=== PATIENT | male | born 1995 | race Caucasian/White ===

== ENCOUNTER 2017-07-29 16:54 | Observation (INO) | payer OTHER, SELFPAY ==
[2017-07-29] VITALS (8 sets, daily range): BP systolic 104–136; BP diastolic 48–74; PULSE 50–91; RESP 14–19; TEMP 36.2–36.8; O2SAT 97–99; BMI 26.2
--- NOTE | 2017-07-29 16:57 | EKG12_ITS ---
Test Reason : CP Blood Pressure : / mmHG Vent. Rate : 080 BPM Atrial Rate : 080 BPM P-R Int : 146 ms QRS Dur : 088 ms QT Int : 352 ms P-R-T Axes : 065 -31 044 degrees QTc Int : 405 ms Normal sinus rhythm with sinus arrhythmia Left axis deviation Abnormal ECG Confirmed by HE GRACE ([id number]), city editor ANABELLE LOPEZ ([id number]) on 08/02/2017 10:19:44 AM Referred By: Manuel Engel Confirmed By:HE GRACE
[2017-07-29 17:18] LABS: Absolute Lymphocyte Count 2.07 X10^3/ul (0.83-4.51); Absolute Neutrophil Count 4.8 X10^3/uL (2.0-7.7); Basophil# 0.03 X10^3/uL; Basophil% 0.4 % (0-1); Eosinophil# 0.11 X10^3/uL; Eosinophils% 1.5 % (0-5); Hematocrit 44.3 % (40-54); Hemoglobin 15.2 g/dl (13.0-16.5); Lymphocyte # 2.07 X10^3/ul (4.0); Lymphocyte % 27.6 % (19-41); Mean Corp Hgb Conc 34.3 g/gl (32-36); Mean Corpuscular Hgb 29.2 pg (27.0-32.0); Mean Platelet Vol. 10.6 fl (6.2-12.0); Monocyte# 0.46 X10^3/uL; Monocyte% 6.1 % (0-10); Neutrophil # 4.83 X10^3/uL (2.7-7.7); Neutrophil % 64.4 % (47-70); Platelet Count 272 K/mm3 (150-450); RBC Distribution Width SD 36.9 fl (35.1-43.9); Red Blood Count 5.21 M/mm3 (4.6-6.2); White Blood Count 7.5 K/mm3 (4.4-11.0)
[2017-07-29 17:19] LABS: POSITIVE COUNT NO; POSITIVE DIFFERENTIAL NO; POSITIVE MORPHOLOGY NO
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
[2017-07-29] MEDS: Aspirin 325 MG Tablet PO (17:38)
[2017-07-29 17:51] LABS: Anion Gap 7 (5-15); BUN 20 mg/dL (7-18); BUN/Creat Ratio 17.4 RATIO (10-20); Calcium,Total 9.4 mg/dL (8.5-10.1); Chloride 108 mmol/L (98-107); Creatinine, Serum 1.15 mg/dL (0.70-1.30); EST Glomerular Filtration Rate 85 mL/min (>60); Est Glom Filt Rate - Afr Amer 102 mL/min (>60); Estimated Creatinine Clearance 117.14 ml/min; Glucose 89 mg/dL (74-106); Sodium Level 142 mmol/L (136-145)
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
[2017-07-29 19:01] LABS: Erythrocyte Sedimentation Rate 2 mm/hr (0-15)
[2017-07-29 19:13] LABS: CRP < 2.90 mg/L (0.0-3.0)
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
--- NOTE | 2017-07-29 20:00 | EKG12_ITS ---
Test Reason : Blood Pressure : / mmHG Vent. Rate : 061 BPM Atrial Rate : 061 BPM P-R Int : 162 ms QRS Dur : 094 ms QT Int : 418 ms P-R-T Axes : 065 -23 042 degrees QTc Int : 420 ms Normal sinus rhythm Normal ECG When compared with ECG of 29-JUL-2017 16:56, MANUAL COMPARISON REQUIRED, DATA IS UNCONFIRMED Confirmed by HE GRACE ([id number]), assistant production editor ANABELLE LOPEZ ([id number]) on 08/02/2017 3:07:35 PM Referred By: Manuel Engel Confirmed By:HE GRACE
[2017-07-29] MEDS: Famotidine 20 MG Tablet PO (21:22)
[2017-07-30] VITALS (8 sets, daily range): BP systolic 100–122; BP diastolic 55–68; PULSE 38–66; RESP 14–18; TEMP 36.6–36.8; O2SAT 97–99
[2017-07-30 05:49] LABS: International Normalized Ratio 1.2
--- NOTE | 2017-07-30 05:55 | ECHOD_ITS ---
Reason For Study: chest pain Procedure This was a 2D Doppler, Color Flow transthoracic echocardiogram. The study was technically difficult. Due to pectus excavatum. Exam performed in department. Left Ventricle Normal size and thickness. The estimated ejection fraction is 65 %. Normal diastology for age. No regional wall motion abnormalities noted. Right Ventricle Normal size and thickness. Normal systolic function. Atria Normal left atrium. Normal right atrium. Normal atrial septum. Mitral Valve The mitral valve is structurally normal. No prolapse or stenosis seen. Trivial mitral valve insufficiency. Tricuspid Valve Normal tricuspid valve. Trivial tricuspid valve insufficiency. Right ventricular systolic pressure estimated to be 31 mmHg. Aortic Valve Trisinus/trileaflet aortic valve. Normal aortic valve. Pulmonic Valve Normal pulmonic valve. Great Vessels Normal aortic root. Normal arch. Normal inferior vena cava. Inferior vena cava collapse with sniff. Pericardium/Pleural No pericardial effusion. MMode/2D Measurements & Calculations LVIDd: 4.9 cm IVSd: 0.97 cm Ao root diam: 3.0 cm LVIDs: 3.5 cm LVPWd: 1.0 cm LA dimension: 2.8 cm RVDd: 3.5 cm FS: 28.9 % LAV(MOD-sp4): 51.3 ml LA A4 area: 18.0 cm2 Doppler Measurements & Calculations MV E max willie: 94.1 cm/sec Lat Peak E' Willie: 20.3 cm/sec Med Peak E' Willie: 16.1 cm/sec MV A max willie: 37.8 cm/sec E/E' lat: 4.6 E/E' med: 5.8 MV E/A: 2.5 Ao V2 max: 118.3 cm/sec LV V1 max: 100.0 cm/sec PA V2 max: 90.5 cm/sec Ao max P.6 mmHg LV V1 max P.0 mmHg PI end-d willie: 95.5 cm/sec TR max willie: 256.5 cm/sec TR max P.3 mmHg Interpretation Summary The estimated ejection fraction is 65 %. Normal diastology for age. Trivial mitral valve insufficiency. Trivial tricuspid valve insufficiency. Right ventricular systolic pressure estimated to be 31 mmHg. There is no comparison study available. Ordering Physician: Mary Grant Referring Physician: Manuel Engel Performed By: Marguerite Childs RDCS, RVT
[2017-07-30 06:18] LABS: Anion Gap 8 (5-15); BUN 16 mg/dL (7-18); BUN/Creat Ratio 16.6 RATIO (10-20); Calcium,Total 8.4 mg/dL (8.5-10.1); Chloride 111 mmol/L (98-107); Creatinine, Serum 0.96 mg/dL (0.70-1.30); EST Glomerular Filtration Rate 103 mL/min (>60); Est Glom Filt Rate - Afr Amer 125 mL/min (>60); Estimated Creatinine Clearance 140.33 ml/min; Glucose 88 mg/dL (74-106); Magnesium 2.1 mg/dL (1.6-2.6); Potassium 3.8 mmol/L (3.5-5.1); Sodium Level 143 mmol/L (136-145)
[2017-07-30] MEDS: Famotidine 20 MG Tablet PO (10:15)
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
[2017-07-30] MEDS: 0.9% NaCl Peripheral Flush Adult/Peds IV (12:16)
[2017-07-30] MEDS: 0.9% Normal Saline 1,000 ML 999 ML IV (12:16)
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
--- NOTE | 2017-07-30 12:47 | PCM.WORK.EX ---
Work/School Excuse Work/School Excuse for:: Patient Please excuse this person from:: Work From: 07/29/17 through: 08/06/17 Restrictions: Other - No driving for 1 week.
--- NOTE | 2017-07-30 12:50 | DCINST_ITS ---
- Discharge Diagnoses Current Active Problems: Current Active and Chronic Problems Acute chest pain (Acute) Syncope (Acute) You will use the following diet at home:: No restrictions Discharge Activity: May Not Drive - 1 Week, - - No using heavy machinery for 1 week Call your doctor if you observe: Shortness of breath, Dizziness, Fainting spells , Chest pain, Increased palpitations (irregular heartbeat) Additional Instructions: Avoid medications that may lower your blood pressure which include beta blockers, meclizine, steroid based medications. Allergies/Adverse Reactions: Allergies No Known Allergies Allergy (Verified 07/29/17 16:57) Medications to take at Discharge NK [NK] 07/29/17 Orders to be completed after discharge: 30-Day Event Recorder [[facility]] Location: None Selected Primary Care Physician: Manuel Engel DO [Primary Care Provider] - Please follow up with your Primary Care Physician in: 1 Week Please Follow Up With: Paulo Rouse MD When: 4-6 weeks Proposed Discharge Date: 07/30/17
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
== END 2017-07-30 12:49 | disposition home or self-care (01) ==
LOC: ED 19:09 → PCU 19:42
PROVIDERS: Admitting Provider Hospitalist; Emergency Provider Emergency Medicine; Family Provider Family Medicine; PCP Family Medicine; Visit Provider Family Medicine
DX: T75.4XXA Electrocution, initial encounter (principal); W86.1XXA Exposure to industrial wiring, appliances and electrical machinery, initial encounter; Y93.89 Activity, other specified; Y92.89 Other specified places as the place of occurrence of the external cause; Y99.0 Civilian activity done for income or pay; R07.89 Other chest pain; R55 Syncope and collapse; R00.1 Bradycardia, unspecified; F17.200 Nicotine dependence, unspecified, uncomplicated; Q67.6 Pectus excavatum
CPT/HCPCS: 36415; 71045; 71275; 80048; 83735; 84443; 84484; 85025; 85610; 85652; 86140; 93005; 93270; 93306; 96360; 99218; 99283; 99406; J7030; Q9967; A4216; G0378

== ENCOUNTER → 2017-07-30 13:01 | Outpatient (REF) | payer SELFPAY | LOC: CVS 13:01 | PROVIDERS: Family Provider Family Medicine; PCP Family Medicine; Visit Provider Nurse Practitioner Family | DX: R00.1 Bradycardia, unspecified (principal) | CPT/HCPCS: 93270 ==

== ENCOUNTER → 2017-09-08 12:35 | Outpatient (CLI) | payer OTHER, SELFPAY ==
--- NOTE | 2017-09-08 12:37 | STE_ITS ---
Reason For Study: Syncope; Chest Pain Stress Results Protocol: Jared Protocol Maximum Predicted HR: 198 bpm Target HR: 168 bpm% Max imum Predicted HR: 86 % DurationHeart Rate Stage (mm:ss) (bpm) BPCom ment Baseline 52 118/78 No Chest Pain Jared Protocol Stage I 3:00 10 8 124/72No Chest Pain Jared Protocol Stage II 3:00 13 7 142/70No Chest Pain Jared Protocol Stage III 3:00 14 8 138/74No Chest Pain; Mild Dyspnea Jared Protocol Stage IV 3:00 17 1 150/76No Chest Pain; Moderate Dyspnea Recovery 85 110/62 No Chest Pain Stress Duration: 12:00 mm:ss Maximum Stress HR: 171 bpmME TS: 13 Baseline Echocardiogram Findings The estimated ejection fraction is 65 %. Normal size and thickness. Concentric left ventricular hypertrophy. Normal systolic function. Normal left atrium. Normal right atrium. Normal atrial septum. The mitral valve is structurally normal. No prolapse or stenosis seen. Stress Echo Wall motion Data Resting WMIntermediate WMStress WM Resting Wall Motion No regional wall motion abnormalities noted. EKG Data The baseline ECG demonstrates normal sinus rhythm with at rate of _ beats per minute. The patient exercised according to the regular Jared protocol for a total duration of 12:00. The maximum heart rate attained was 173 beats per minute. This was 87% of maximum predicted heart rate. The patient exercised into stage 5 of the Jared protocol. During stress, there were no ST or T wave changes noted to suggest ischemia. Interpretation Summary The estimated ejection fraction is 65 %. Normal, adequate, treadmill echocardiogram. Negative for ischemia by EKG and echocardiographic criteria. No anginal symptoms noted. Appropriate blood pressure response to exercise. Average exercise capacity for age. Rare PACs and PVCs noted during exercise. Final LVEF is 75%. Ordering Physician: Paulo Rouse Referring Physician: Paulo Rouse MD Performed By: Natalie Salomon RDCS
== END ==
PROVIDERS: Family Provider Family Medicine; PCP Family Medicine; Visit Provider Internal Medicine Cardiovascular Disease
DX: R07.9 Chest pain, unspecified (principal); R55 Syncope and collapse; T75.4XXA Electrocution, initial encounter; R42 Dizziness and giddiness
CPT/HCPCS: 93017; 93350

== ENCOUNTER 2017-11-18 09:15 | Emergency (ER) | payer OTHER, SELFPAY ==
[2017-11-18 09:16] VITALS: BP 154/68; PULSE 60; RESP 18; TEMP 36.6; O2SAT 100; BMI 26.4
[2017-11-18 09:27] VITALS: BP 144/80; PULSE 59; RESP 16; O2SAT 100
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
--- NOTE | 2017-11-18 09:41 | EKG12_ITS ---
Test Reason : CP Blood Pressure : / mmHG Vent. Rate : 049 BPM Atrial Rate : 049 BPM P-R Int : 166 ms QRS Dur : 086 ms QT Int : 424 ms P-R-T Axes : 052 -33 015 degrees QTc Int : 383 ms Sinus bradycardia Left axis deviation Cannot rule out Anterior infarct , age undetermined Abnormal ECG Confirmed by ROD DUONG, BEE ([id number]), visual effects editor REENA MUÑIZ ([id number]) on 11/22/2017 3:20:54 PM Referred By: SHAKIR Confirmed By:BEE VELASCO MD
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
[2017-11-18 09:51] LABS: Absolute Lymphocyte Count 1.46 X10^3/ul (0.83-4.51); Absolute Neutrophil Count 4.7 X10^3/uL (2.0-7.7); Basophil# 0.01 X10^3/uL; Basophil% 0.1 % (0-1); Eosinophil# 0.19 X10^3/uL; Eosinophils% 2.8 % (0-5); Hematocrit 44.9 % (40-54); Hemoglobin 15.2 g/dl (13.0-16.5); Lymphocyte # 1.46 X10^3/ul (4.0); Lymphocyte % 21.4 % (19-41); Mean Corp Hgb Conc 33.9 g/gl (32-36); Mean Corpuscular Hgb 29.2 pg (27.0-32.0); Mean Corpuscular Volume 86.2 fL (80-94); Mean Platelet Vol. 10.4 fl (6.2-12.0); Monocyte# 0.49 X10^3/uL; Monocyte% 7.2 % (0-10); Neutrophil # 4.67 X10^3/uL (2.7-7.7); Neutrophil % 68.5 % (47-70); Platelet Count 235 K/mm3 (150-450); RBC Distribution Width CV 11.9 % (11.6-14.6); RBC Distribution Width SD 37.5 fl (35.1-43.9); Red Blood Count 5.21 M/mm3 (4.6-6.2); White Blood Count 6.8 K/mm3 (4.4-11.0)
--- NOTE | 2017-11-18 09:55 | CT_ITS ---
STUDY: CTA CHEST REASON FOR EXAM: Male, 22 years old. Chest pain RADIATION DOSAGE (If Supplied By Facility): CTDIvol = ( 18.16 ) mGy, DLP = ( 629.81 ) mGycm TECHNIQUE: The examination was performed with the intravenous administration of 100 ml of Isovue 370 contrast material. Post-processing of the angiographic images was performed, with multiplanar reformation and 3D reconstruction. Individualized dose optimization techniques were used for this CT. COMPARISON: None. FINDINGS: Normal enhancement of the main pulmonary artery and right and left pulmonary arteries. Normal enhancement of the bilateral peripheral pulmonary arteries. There is no demonstrated pulmonary embolism. Normal thoracic aorta and visualized great vessels. There is no demonstrated aortic dissection. Normal heart and pericardium. Normal mediastinum. Normal hilar regions. Normal visualized trachea and bronchi. The lungs are well expanded. Normal pulmonary parenchyma. Normal pleura. Normal chest wall structures. Pectus excavatum noted Normal osseous structures. Normal visualized upper abdomen. CT/CTA Chest W/WO Contrast IMPRESSION: Normal CTA chest examination, without a demonstrated pulmonary embolism or arterial dissection. Electronically Signed: Shyann Doty MD at 10:55 EDT , Service support ,
[2017-11-18] MEDS: Ondansetron 4 MG/2 ML Vial IV (10:04)
[2017-11-18 10:05] LABS: Anion Gap 7 (5-15); BUN 17 mg/dL (7-18); BUN/Creat Ratio 14.8 RATIO (10-20); Calcium,Total 9.2 mg/dL (8.5-10.1); Chloride 107 mmol/L (98-107); Creatinine, Serum 1.15 mg/dL (0.70-1.30); EST Glomerular Filtration Rate 84 mL/min (>60); Est Glom Filt Rate - Afr Amer 102 mL/min (>60); Estimated Creatinine Clearance 117.14 ml/min; Glucose 106 mg/dL (74-106); Sodium Level 143 mmol/L (136-145)
[2017-11-18] MEDS: morphine 8 MG/ML Syringe IV (10:05)
[2017-11-18] MEDS: Ketorolac 30 MG/ML Syringe IV (10:05)
[2017-11-18] MEDS: Mag Hydrox/Al Hydrox/Simeth 30 ML UDC PO (10:06)
[2017-11-18 10:08] VITALS: BP 115/71; PULSE 59; RESP 14; O2SAT 99
[2017-11-18 10:18] LABS: CRP < 2.90 mg/L (0.0-3.0); Erythrocyte Sedimentation Rate 2 mm/hr (0-15)
[2017-11-18] MEDS: 0.9% Normal Saline 1,000 ML 150 ML IV (11:03)
[2017-11-18 11:06] VITALS: BP 131/74; PULSE 49; RESP 12; O2SAT 100
--- NOTE | 2017-11-18 11:58 | DCINST.ED_ITS ---
ED Disposition - Plan for ED Patient: Chief Complaint: Chest Pain Instructions: ED Chest Pain Atypical Unkn Cause Prescriptions: Hydrocodone Bitart/Apap 5-325 [[place] 5MG-325MG] 1 tab PO Q4H PRN PRN 2 Days #4 tab PRN Reason: Pain Referrals: Manuel Engel DO [Primary Care Provider] -
[2017-11-18 12:23] VITALS: BP 128/71; PULSE 49; RESP 14; RESP 16; O2SAT 100; O2SAT 98
== END 2017-11-18 12:25 | disposition home or self-care (01) ==
LOC: ED 10:11
PROVIDERS: Emergency Provider Emergency Medicine; Family Provider Family Medicine; PCP Family Medicine
DX: R07.9 Chest pain, unspecified (principal); Z87.828 Personal history of other (healed) physical injury and trauma
CPT/HCPCS: 71046; 71275; 80048; 84484; 85025; 85652; 86140; 93005; 96361; 96374; 96375; 99284; J7030; J7040; Q9967; A4216; J2405

== ENCOUNTER 2017-12-08 07:09 | Day surgery (SDC) | payer OTHER, SELFPAY ==
[2017-12-07 07:52] VITALS: BMI 26.4
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
== END 2017-12-08 14:15 | disposition home or self-care (01) ==
LOC: CLSP 07:10
PROVIDERS: Family Provider Family Medicine; PCP Family Medicine; Referring Provider Internal Medicine Cardiovascular Disease; Visit Provider Internal Medicine Cardiovascular Disease
DX: R07.89 Other chest pain (principal); F12.90 Cannabis use, unspecified, uncomplicated; Z79.811 Long term (current) use of aromatase inhibitors
CPT/HCPCS: 93458; 99152; J7040; C1769; C1894; Q9967

== ENCOUNTER → 2017-12-14 11:17 | Outpatient (CLI) | payer OTHER, SELFPAY ==
--- NOTE | 2017-12-14 11:20 | ADUL_ITS ---
Reason For Study: R groin pain Right Velocities Left Velocities Common Femoral Artery, mid = 115 cm./sec. Common Femoral Artery, mid = 108 cm./sec. DIVERSITY SPECIALIST measures .927 x 1.1 cm. DIVERSITY SPECIALIST measures .851 x .910 cm. CFV is compressible with normal venous flow CFV is compressible with normal venous flow patterns. patterns. No Pseudo or A-V Fistula identified. Procedure The exam was diagnostic. Prelim called to Joan Hopper. Interpretation Summary Common femoral arteries appear bilaterally patent, demonstrating pulsatile color flow bilaterally. Common femoral veins are patent and compressible bilaterally, demonstrating normal, phasic venous flow. There is no evidence of pseudoanuerysm, arterio-venous fistula, or other iatrogenic abnormality on either side. Ordering Physician: Joan Hopper Performed By: Douglas Wilson RVT
== END ==
PROVIDERS: Family Provider Family Medicine; PCP Family Medicine; Referring Provider Physician Assistant Medical; Visit Provider Physician Assistant Medical
DX: Z98.890 Other specified postprocedural states (principal); R10.31 Right lower quadrant pain; G89.18 Other acute postprocedural pain
CPT/HCPCS: 93926

== ENCOUNTER 2018-01-12 18:01 | Emergency (ER) | payer OTHER, SELFPAY ==
[2017-12-27 13:09] VITALS: BMI 26.6
[2018-01-12 18:02] VITALS: BP 126/72; PULSE 67; RESP 15; TEMP 36.8; O2SAT 100; BMI 27.1
--- NOTE | 2018-01-12 18:07 | EKG12_ITS ---
Test Reason : Blood Pressure : / mmHG Vent. Rate : 066 BPM Atrial Rate : 066 BPM P-R Int : 164 ms QRS Dur : 084 ms QT Int : 374 ms P-R-T Axes : 061 -28 026 degrees QTc Int : 392 ms Normal sinus rhythm with sinus arrhythmia Possible Left atrial enlargement Borderline ECG Confirmed by ROD DUONG, BEE ([id number]), graphic editor REENA MUÑIZ ([id number] on 01/14/2018 2:40:17 PM Referred By: MARQUISE Confirmed By:BEE VELASCO MD
[2018-01-12 18:17] VITALS: BP 119/75; BP 120/72; BP 128/85; PULSE 69; PULSE 71; PULSE 87
[2018-01-12] MEDS: 0.9% Normal Saline 1,000 ML 1000 ML IV (18:21)
[2018-01-12 18:35] LABS: Absolute Neutrophil Count 7.8 X10^3/uL (2.0-7.7); Basophil# 0.03 X10^3/uL; Basophil% 0.3 % (0-1); Eosinophil# 0.13 X10^3/uL; Eosinophils% 1.2 % (0-5); Hematocrit 43.3 % (40-54); Hemoglobin 15.1 g/dl (13.0-16.5); Lymphocyte % 21.3 % (19-41); Mean Corp Hgb Conc 34.9 g/gl (32-36); Mean Corpuscular Hgb 29.7 pg (27.0-32.0); Mean Corpuscular Volume 85.1 fL (80-94); Monocyte# 0.58 X10^3/uL; Monocyte% 5.4 % (0-10); Neutrophil # 7.77 X10^3/uL (2.7-7.7); Neutrophil % 71.7 % (47-70); Platelet Count 274 K/mm3 (150-450); RBC Distribution Width CV 11.9 % (11.6-14.6); RBC Distribution Width SD 37.1 fl (35.1-43.9); Red Blood Count 5.09 M/mm3 (4.6-6.2); White Blood Count 10.8 K/mm3 (4.4-11.0)
[2018-01-12 18:49] LABS: Anion Gap 9 (5-15); BUN 19 mg/dL (7-18); BUN/Creat Ratio 17.3 RATIO (10-20); Calcium,Total 9.3 mg/dL (8.5-10.1); Chloride 108 mmol/L (98-107); EST Glomerular Filtration Rate 89 mL/min (>60); Est Glom Filt Rate - Afr Amer 107 mL/min (>60); Estimated Creatinine Clearance 122.47 ml/min; Glucose 106 mg/dL (74-106); Potassium 3.6 mmol/L (3.5-5.1); Sodium Level 141 mmol/L (136-145)
[2018-01-12 18:55] LABS: POSITIVE COUNT NO; POSITIVE DIFFERENTIAL NO; POSITIVE MORPHOLOGY NO
--- NOTE | 2018-01-12 19:07 | ED.RN ---
REPORT GIVEN AND CARE TAKEN OVER BY MAXIME VIZCARRA RN.
[2018-01-12 19:33] VITALS: BP 123/71; PULSE 65; RESP 20; O2SAT 98
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
[2018-01-12 21:05] VITALS: BP 125/82; PULSE 60; RESP 15; TEMP 36.9; O2SAT 99
[2018-01-12 22:07] VITALS: BP 125/82; PULSE 60; RESP 15; TEMP 36.9; O2SAT 98
== END 2018-01-12 22:00 | disposition short-term general hospital (02) ==
LOC: ED 18:41
PROVIDERS: Emergency Provider Emergency Medicine; Family Provider Family Medicine; PCP Family Medicine
DX: R55 Syncope and collapse (principal); I49.8 Other specified cardiac arrhythmias; R07.9 Chest pain, unspecified; T75.4XXD Electrocution, subsequent encounter
CPT/HCPCS: 80048; 84484; 85025; 93005; 96360; 99285; J7030; A4216

== ENCOUNTER → 2018-01-20 13:15 | Outpatient (CLI) | payer OTHER, SELFPAY ==
[2018-01-12 18:02] VITALS: BMI 27.1
--- OUTSIDE RECORDS SUMMARY | 2018-03-08 09:14 | XMS RPT_ITS ---
:1995 Author Organization OHIP Support Name Relationship Address Phone MARGUERITE MORA Unavailable Unavailable + [place] [address] RYNE KWON Unavailable [address] + [place] [address] SPECILITY PROCESSING Unavailable [address] + [place] [address] MARGUERITE MORA Unavailable . + [place] [address] RYNE KWON Unavailable [address] + [place] [address] SPECILITY PROCESSING Unavailable [address] + [place] [address] MARGUERITE MORA Unavailable Unavailable + [place] [address] RYNE KWON Unavailable [address] + [place] [address] SPECILITY PROCESSING Unavailable [address] + [place] [address] MARGUERITE MORA Unavailable Unavailable + [place] [address] RYNE KWON Unavailable [address] + [place] [address] SPECILITY PROCESSING Unavailable [address] + [place] [address] MARGUERITE MORA Unavailable . + [place] [address] RYNE KWON Unavailable [address] + [place] [address] SPECILITY PROCESSING Unavailable [address] + [place] [address] MARGUERITE MORA Unavailable Unavailable + [place] [address] CHER, RYNE Unavailable [address] + [place] [address] SPECILITY PROCESSING Unavailable [address] + [place] [address] MARGUERITE MORA Unavailable . + [place] [address] CHER, RYNE Unavailable [address] + [place] [address] SPECILITY PROCESSING Unavailable [address] + [place] [address] MARGUERITE MORA Unavailable Unavailable + [place] [address] CHER, RYNE Unavailable [address] + [place] [address] SPECILITY PROCESSING Unavailable [address] + [place] [address] MARGUERITE MORA Unavailable Unavailable + [place] [address] CHER RYNE Unavailable [address] + [place] [address] SPECILITY PROCESSING Unavailable [address] + [place] [address] MARGUERITE MORA Unavailable . + [place] [address] RYNE KWON Unavailable [address] + [place] [address] SPECILITY PROCESSING Unavailable [address] + [place] [address] MARGUERITE MORA Unavailable . + [place] [address] CHER RYNE Unavailable [address] + [place] [address] SPECILITY PROCESSING Unavailable [address] + [place] [address] MARGUERITE MORA Unavailable . + [place] [address] CHER, RYNE Unavailable [address] + [place] [address] SPECILITY PROCESSING Unavailable [address] + [place] [address] MARGUERITE MORA Unavailable . + [place] [address] CHER, RYNE Unavailable [address] + [place] [address] SPECILITY PROCESSING Unavailable [address] + [place] [address] MARGUERITE MORA Unavailable . + [place] [address] CHER, RYNE Unavailable [address] + [place] [address] SPECILITY PROCESSING Unavailable [address] + [place] [address] MARGUERITE MORA Unavailable . + [place] [address] CHER, RYNE Unavailable [address] + [place] [address] SPECILITY PROCESSING Unavailable [address] + [place] [address] MARGUERITE MORA Unavailable . + [place] [address] CHER, RYNE Unavailable [address] + [place] [address] SPECILITY PROCESSING Unavailable [address] + [place] [address] MARGUERITE MORA Unavailable . + [place] [address] CHER, RYNE Unavailable [address] + [place] [address] SPECILITY PROCESSING Unavailable [address] + [place] [address] MARGUERITE MORA Unavailable . + [place] [address] CHER, RYNE Unavailable [address] + [place] [address] SPECILITY PROCESSING Unavailable [address] + [place] [address] MARGUERITE MORA Unavailable . + [place] [address] CHER, RYNE Unavailable [address] + [place] [address] SPECILITY PROCESSING Unavailable [address] + [place] [address] MARGUERITE MORA Unavailable . + [place] [address] CHER, RYNE Unavailable [address] + [place] [address] SPECILITY PROCESSING Unavailable [address] + [place] [address] MARGUERITE MORA Unavailable . + [place] [address] CHER, RYNE Unavailable [address] + [place] [address] SPECILITY PROCESSING Unavailable [address] + [place] [address] MARGUERITE MORA Unavailable . + [place] [address] CHER, RYNE Unavailable [address] + [place] [address] SPECILITY PROCESSING Unavailable [address] + [place] [address] MARGUERITE MORA Unavailable . + ., [place] . SPECILITY PROCESSING Unavailable [address] + [place] [address] MARGUERITE MORA Unavailable . + [place] [address] CHER, YRNE Unavailable [address] + [place] [address] SPECILITY PROCESSING Unavailable [address] + [place] [address] MARGUERITE MORA Unavailable . + [place] [address] RYNE KWON Unavailable [address] + [place] [address] SPECILITY PROCESSING Unavailable [address] + [place] [address] CHRISTIANO MORA Unavailable Unavailable + [place] [address] SPECILITY PROCESSING Unavailable [address] + [place] [address] SPECILITY PROCESSING Unavailable [address] + [place] [address] MARGUERITE MORA Unavailable . + [place] [address] RYNE KWON Unavailable [address] + [place] [address] SPECILITY PROCESSING Unavailable [address] + [place] [address] HECTOR MORAA Unavailable . + [place] [address] RYNE KWON Unavailable [address] + [place] [address] SPECILITY PROCESSING Unavailable [address] + [place] [address] LENNY MARGUERITE Unavailable . + [place] [address] RYNE KWON Unavailable [address] + [place] [address] SPECILITY PROCESSING Unavailable [address] + [place] [address] CHERYL MORANDA Unavailable . + [place] [address] RYNE KWON Unavailable [address] + [place] [address] SPECILITY PROCESSING Unavailable [address] + [place] [address] LENNY MARGUERITE Unavailable . + [facility] [place] [address] RYNE KWON Unavailable [address] + [place] [address] SPECILITY PROCESSING Unavailable [address] + [place] [address] HECTOR MORAA Unavailable . + [place] [address] RYNE KWON Unavailable [address] + [place] [address] SPECILITY PROCESSING Unavailable [address] + [place] [address] Care Team Providers Name Role Phone Erika Engel Primary Care Unavailable Erika Engel Referring Unavailable Imamura, Yoichi Admitting Unavailable Paulo Grace Consulting Unavailable Anahi Bagley Attending Unavailable Imamura, Yoichi Admitting Unavailable Erika Engel Referring Unavailable Erika Engel Primary Care Unavailable Juanita, Yoichi Consulting Unavailable Jarret Alejandra Attending Unavailable Imamura, Yoichi Admitting Unavailable Paulo Grace Attending Unavailable Brown, Erika Referring Unavailable Brown, Erika Primary Care Unavailable Paulo Grace Consulting Unavailable White, Anahi Consulting Unavailable Jodi Gamez BURN OUT SCARFING OPERATOR-C Attending Unavailable Brown, Erika Primary Care Unavailable Kain Arora BURN OUT SCARFING OPERATOR-C Attending Unavailable Kain Arora BURN OUT SCARFING OPERATOR-C Referring Unavailable Brown, Erika Primary Care Unavailable Brown, Erika Attending Unavailable Brown, Erika Referring Unavailable Harley, Mooers BURN OUT SCARFING OPERATOR-C Attending Unavailable Harley Jenny BURN OUT SCARFING OPERATOR-C Referring Unavailable Brown, Erika Primary Care Unavailable Mary Grant Admitting Unavailable White, Anahi Attending Unavailable Brown, Erika Referring Unavailable Brown, Erika Primary Care Unavailable Paulo Grace Consulting Unavailable White, Anahi Consulting Unavailable AroraKain BURN OUT SCARFING OPERATOR-C Attending Unavailable Brown, Erika Referring Unavailable Brown, Erika Primary Care Unavailable Olejuan pabloe, Efewongbe Attending Unavailable Brown, Erika Referring Unavailable Brown, Erika Primary Care Unavailable Evelia Shaw Attending Unavailable Paulo Grace Attending Unavailable Brown, Erika Referring Unavailable Brown, Erika Primary Care Unavailable Kain Arora BURN OUT SCARFING OPERATOR-C Attending Unavailable Brown, Erika Referring Unavailable Brown, Erika Primary Care Unavailable Paulo Grace Attending Unavailable Paulo Grace Referring Unavailable Brown, Erika Primary Care Unavailable Paulo Grace Attending Unavailable Paulo Grace Attending Unavailable AroraKain BURN OUT SCARFING OPERATOR-C Attending Unavailable Brown, Erika Referring Unavailable Brown, Erika Primary Care Unavailable Brown, Erika Attending Unavailable Brown, Erika Referring Unavailable Brown, Erika Primary Care Unavailable Paulo Grace Attending Unavailable Oleghe, Efewongbe Attending Unavailable Brown, Erika Referring Unavailable Brown, Erika Primary Care Unavailable Kain Arora BURN OUT SCARFING OPERATOR-C Attending Unavailable Oleghe, Efewongbe Referring Unavailable Kain Arora BURN OUT SCARFING OPERATOR-C Attending Unavailable Oleghe, Efewongbe Referring Unavailable Ej Hanley Attending Unavailable Oleghe, Efewongbe Referring Unavailable Brown, Erika Attending Unavailable Oleghe, Efewongbe Referring Unavailable Brown, Erika Primary Care Unavailable Laverne Celis Attending Unavailable Paulo Grace Attending Unavailable Brown, Erika Referring Unavailable Paulo Grace Attending Unavailable Paulo Grace Referring Unavailable Brown, Erika Primary Care Unavailable Joan Hopper Attending Unavailable Brown, Erika Referring Unavailable Joan Hopper Attending Unavailable Joan Hopper Referring Unavailable Brown, Erika Primary Care Unavailable Paulo Grace Attending Unavailable Kain Arora BURN OUT SCARFING OPERATOR-C Attending Unavailable Brown, Erika Referring Unavailable Brown, Erika Primary Care Unavailable Jose Novak Attending Unavailable THAIS WOODARD Admitting Unavailable FIDEL BAEZA Attending Unavailable MANOJ SPICER Consulting Unavailable TESS GREGG Attending Unavailable PAULO GRACE Referring Unavailable BROWN, ERIKA Primary Care Unavailable PAYAM RODARTE Attending Unavailable PAULO GRACE Referring Unavailable BROWN, ERIKA Primary Care Unavailable THAIS WOODARD Admitting Unavailable BROWN, ERIKA Primary Care Unavailable ESME SPICER Unavailable FIDEL BAEZA Attending Unavailable PROBLEMS PROBLEMS DATE TYPE CONDITION / CODE ATTENDING STATUS SOURCE 01/12/2018 Active Syncope and OFUNGWU, Active [place] collapse / [facility] Other R55(ICD-10) [place] Repository 01/12/2018 Admitting Unknown / OFUNGWU, Active [place] [facility] diagnosis UNK(Unknown) [facility] Repository 12/27/2017 Unknown K92.1 - Melena / Kain Arora Active [place] K92.1(ICD-10) BURN OUT SCARFING OPERATOR-C [facility] Hospital Repository 12/27/2017 Unknown R10.9 - Unspecified AroraKain Active [place] abdominal pain / BURN OUT SCARFING OPERATOR-C Community R10.9(ICD-10) Hospital Repository 12/14/2017 Unknown Z98.890 - Other Hopper, Active [place] specified [facility] postprocedural Hospital states / Repository Z98.890(ICD-10) 12/14/2017 Unknown R10.31 - Right Hopper, Active [place] lower quadrant pain [facility] / R10.31(ICD-10) Hospital Repository 12/14/2017 Unknown G89.18 - Other Hopper, Active [place] acute [facility] postprocedural pain Hospital / G89.18(ICD-10) Repository 12/24/2017 Unknown R07.9 - Chest pain, Paulo Grace Active [place] unspecified / Community R07.9(ICD-10) Hospital Repository 11/18/2017 Unknown R52 - Pain, Jwayyed, Active [place] unspecified / [place] [facility] R52(ICD-10) Hospital Repository 11/10/2017 Unknown T75.4XXD - Erika Engel Active [place] Electrocution, Community subsequent Hospital encounter / Repository T75.4XXD(ICD-10) 10/06/2017 Unknown T75.4XXA - Kain Arora Active [place] Electrocution, BURN OUT SCARFING OPERATOR-C Community initial encounter / Hospital T75.4XXA(ICD-10) Repository 10/06/2017 Unknown R06.00 - Dyspnea, Kain Arora Active [place] unspecified / BURN OUT SCARFING OPERATOR-C Community R06.00(ICD-10) Hospital Repository 10/06/2017 Unknown R42 - Dizziness and Neville, Active [place] giddiness / [place] Community R42(ICD-10) Hospital Repository 10/06/2017 Unknown H61.21 - Impacted Kain Arora Active [place] cerumen, right ear BURN OUT SCARFING OPERATOR-C Community / H61.21(ICD-10) Hospital Repository 10/07/2017 Unknown R55 - Syncope and Paulo Grace Active [place] collapse / Community R55(ICD-10) Hospital Repository 10/06/2017 Unknown R00.1 - Paulo Grace Active [place] Bradycardia, Community unspecified / Hospital R00.1(ICD-10) Repository PROCEDURES PROCEDURES No Procedure Records FoundRESULTS RESULTS ELECTROENCEPHALOGRAM Observed: 02/18/2018 Status: F Source: [place] 12:10 PM [facility] REPOSITORY [facility] Pulmonary Services/Neurology [address] [place] [address] MR#: [id number] Acct: [id number] Name: URIEL KWON Rep #: [id number] : 1995 22 From: Dejan Chand MD Referring Dr: Jenny Souza NP Status: REG CLI Ordering Dr: Date: Location: [facility] Sex: M C - Electroencephalogram This is an 18 channel electro esophagram performed with EKG reference leads photic stimulation and hyperventilation utilizing the International 10-20 electrode placement protocol on this 22-year-old patient with a history of electrocution and frequent syncopal episodes. Background activity is 10 Hz symmetrically in the posterior leads which attenuates with eye opening. Hyperventilation is performed for 5 minutes with good effort with no lateralizing or epileptiform changes. The patient remained awake throughout the recording. EKG was normal sinus rhythm throughout the recording and photic stimulation generates a normal symmetric driving response in the posterior leads. Impression normal awake electroencephalogram 02/18/18 1210 <Electronically signed by Dejan Chand MD> Date Dejan Chand MD CC: GARETH Souza; Erika Engel DO; Dejan Chand MD Date Dictated: 02/18/181202 Date Transcribed: 02/18/181202 [place] Code Enforcement Officer: NF Signed BRAIN WITHOUT Observed: 02/18/2018 Status: F Source: [place] CONTRAST 7:25 AM [facility] REPOSITORY [facility] Imaging Services [address] [place] [address] Brain without Contrast MR#: [id number] Acct: [id number] Name: URIEL KWON Rep #: [id number] : 1995 M 22 From: June Somers PCP: Erika Engel DO Status: REG CLI Study: Brain without Contrast Date of Exam: 02/18/18 Exam# [id number] Ordering Dr: Jenny Souza BURN OUT SCARFING OPERATOR-C STUDY: MRI BRAIN WITHOUT CONTRAST REASON FOR EXAM: Male, 22 years old. DAILY EPISODES OF SYNCOPE SINCE GETTING ELECTROCUTED IN JULY TECHNIQUE: Standardized multiplanar fat and water weighted pulse sequences were obtained. COMPARISON: None. FINDINGS: Normal size of the ventricles and extra-axial spaces for the patient's age. Normal white matter tracts of the supratentorial brain. Normal bilateral basal ganglia. Normal thalami. There is no extra-axial fluid accumulation. Normal flow voids within the major intracranial circulation suggesting patency by spin echo criteria. Normal sella turcica, pituitary gland, infundibular stalk, optic chiasm and hypothalamus. Normal tectal plate and pineal gland. Normal midbrain, azeb and medulla. Normal cerebellum. Normal basal cisterns. Normal bilateral temporal bones. Normal bilateral internal auditory canals. No demonstrated orbital abnormality, within the constraints of a routine brain study. Normal visualized paranasal sinuses. Normal calvarium and skull base. Normal visualized soft tissue structures. Normal visualized upper cervical spine. MRI/Brain without Contrast IMPRESSION: Normal unenhanced MRI of the brain. Electronically Signed: June Somers MD at 10:23 EST Tel , Service support , CC: GARETH Souza; Erika Engel DO [place] Code Enforcement Officer: Signed INTERNAL MEDICINE Observed: 02/04/2018 Status: F Source: [place] OFFICE VISIT 3:13 PM [facility] Internal Medicine [address] [place] [address] OFFICE VISIT Date of Service: 02/04/18 MR#: [id number] Acct: [id number] Name: URIEL KWON Rep #: [id number] : 1995 Provider: Erika Engel DO Age/Sex: 22/M Location[facility] Status: Signed Intake Vital Signs02/04/18 Body Mass Index (BMI) 27.1 02/04/18 Height 6 ft 2 in 02/04/18 Weight: 218 lb 02/04/18 Body Mass Index (BMI) 28.0 02/04/18 Blood Pressure 112/70 Intake Visit Reasons: 4-6 WK FU Chief Complaint: 4-6 Wk FU Is patient in pain?: No Allergies No Known Allergies Allergy (Verified 02/04/18 14:48) Medications ondansetron HCl 4 mg tablet 4 mg PO BID-TID PRN #10 tab 11/03/17 [Rx Confirmed 02/04/18] ibuprofen 800 mg tablet 800 mg PO TID PRN #30 tab 11/05/17 [Rx Confirmed 02/04/18] cyclobenzaprine 10 mg tablet 5 mg PO TID PRN tab 12/02/17 [History Confirmed 02/04/18] gabapentin 100 mg capsule 100 mg PO BID #60 cap 12/27/17 [Rx Confirmed 02/04/18] gabapentin 300 mg capsule 300 mg PO BID 12/27/17 [History Confirmed 02/04/18] PFSH Medical History Accidental electrocution (Chronic) Dizziness (Acute) Acute chest pain (Acute) Syncope (Acute) Back problem (Chronic) Surgical History History of left heart catheterization (Chronic 12/08/17) Family History Grandfather Pancreatic adenocarcinoma Atrial fibrillation, chronic Grandmother Lung cancer Social History Smoking Status: Unknown if ever smoked alcohol intake: never substance use type: marijuana caffeine: Yes Type: carbonated beverages Number of servings: 2, coffee Number of servings: 1 what type of physical activity do you participate in: none HPI HPI Chief Complaint: 4-6 Wk FU Details: URIEL KWON, is a 22 M who presents to the office today for discussion of his last hospitalization. He states that he has had almost daily episodes of syncope he does not lose consciousness they ranged from 30 seconds to 2 minutes in duration. He is never hurt himself when he has had these spells of syncope. ROS Const Constitutional: No chills, fatigue, fever(s), frequent falls, malaise, weakness, sleep problems or change in appetite Eyes Eyes: No blurry vision, change in vision, double vision, discharge or visual disturbances ENT ENT: No abnormal hearing, ear pain, ear pressure, tinnitus or dizziness/vertigo Resp Respiratory: No cough, shortness of breath or wheezing Cardio Cardiology: No chest pain at rest, chest pain with exertion, shortness of breath, dyspnea on exertion, generalized swelling, irregular heart rhythm, lightheadedness, orthopnea, fast heart rate or palpitations Gastro GI: No abdominal pain, change in bowel habits, constipation, diarrhea, nausea/dyspepsia or vomiting Genitourinary Male: No difficulty urinating, burning urination, painful urination, urinary incontinence, urinary frequency, urinary urgency, urinary hesitancy, urinary retention, blood in urine, Frequent nighttime urination/ nocturia, sexual problems, testicle lump or testicle pain Musc Musculoskeletal: No joint pain, back pain, joint swelling, limited range of motion, numbness or tingling Skin Skin: No change in skin color, itching, rash or wounds Breast Breast: No breast lump or breast pain Neuro Neurology: No frequent falls, weakness, abnormal hearing, numbness, tingling, unsteady gait/balance, dizziness, loss of vision, memory loss or visual disturbances Psych Psychiatric: No memory loss, No anxiety, No change in appetite, No depression, No Thoughts of harming yourself/Others Endo Endocrine: No fatigue, heat intolerance, increased thirst/drinking, increased hunger or increased urination Aller/Imm Allergy/Immunologic: No wheezing, itchy eyes or seasonal allergy symptoms Theo/Lymp Hematologic/Lymphatic: No easy bleeding, easy bruising or enlarged lymph nodes Exam Const General: cooperative, comfortable, no acute distress Nutritional Appearance: average body habitus, well nourished Orientation: alert, oriented x3 Limitations: mental status not altered Resp Effort AND Inspection: normal respiratory effort, able to speak in complete sentences, normal respiratory pattern, symmetric chest movement, no audible wheezes, no cough Auscultation: Bilateral: Clear to Auscultation Cardio Palpation: normal PMI Rate: regular rate Heart Sounds: S1 normal, S2 normal, normal S1 and S2, no click, no gallops, no murmurs, no rubs GI Inspection: normal to inspection Auscultation: normal bowel sounds, no hyperactive bowel sounds, no hypoactive bowel sounds Palpation: soft, no hepatosplenomegaly, nontender Rectal Exam: visual inspection normal, normal sphincter tone, No abnormal stool, No fissure, No laceration, No lesions, No tenderness Skin General: no rashes or lesions noted, elasticity normal, turgor normal Lesions: no lesions Rashes: no rashes Neuro General: alert, awake, oriented x3, CN's II-XI intact bilaterally Speech: speech normal Gait: normal gait Motor: muscle tone normal throughout Extrem General: normal to inspection, normal gait, no edema, no pedal edema Psych Appearance: grossly normal Mental Status: mental status grossly normal Affect: normal affect Attitude: cooperative Thought Process: normal Assessment AND Plan Problems 1. Accidental electrocution, subsequent encounter T75.4XXD 2. Syncope, unspecified syncope type R55 Plan This patient has been cleared of any cardiac complications from the electrocution by several nuclear medicine chief technologist, the most recent being an handbag finisher at [facility]. The consensus of opinion is this is neurological perhaps an absence seizure so he is set up to see Dr. Chand the neurologist at [facility]. As per usual physical examination is entirely within normal limits as is a superficial neurologic exam and a psychiatric exam. Coding Level of Care Code Off vis,est,level 3 Diagnoses Accidental electrocution, subsequent encounter T75.4XXD Encounter type: subsequent encounter Syncope, unspecified syncope type R55 Syncope type: unspecified 02/04/18 1513 <Electronically signed by Erika Engel DO> Date Erika Engel DO Cosigner Signature: Date (if applicable) CC: Observed: 01/20/2018 Status: F Source: [place] STOOL OCCULT BLOOD 1:21 PM [facility] REPOSITORY Comments: X 3 SPECIMENS STOB iFOB Occult Blood Negative Performed By: #### M100.7900 #### [facility] [address] [place], [address] PROGRESS Observed: 01/14/2018 Status: COMPLETED Source: [place] 5:36 PM CLIN[facility] OTHER CAMP[facility] REPOSITORY HNO ID: [id number] Author: Manoj Spicer Service: Electrophysiology Author Type: Physician Type: Progress Notes Filed: 01/14/2018 5:45 PM Note Text: Uriel's tilt test was negative, we did not provoke syncope. I discussed that this does not exclude vasovagal but in my mind it raises my concern for pseudosyncope. I would recommend neuropsychologic assessment, which can be done as an outpatient. He sees Dr. Walter for neurology and he may be able to recommend a therapist to do this testing as I am not familiar with. I also am not the right specialist to confirm this diagnosis. I did advise a treatment plan for his symptoms with the possibility that this is VVS and his tilt was negative (he did receive IV fluids in the ED). I advised on dietary water and sodium intake, we discussed, keeping a glass/bottle of water on his night stand and drinking just prior to getting up. I advised use a stretchband for leg extensions first thing in the AM. I recommend that he purchase a pair of athletic compression leggings such as skins or Ux2 to where while at work or periods while standing. I advised to consider taking a yoga class which may help. I provided him a brochure on syncope and encouraged him to look at reputable websites for further information. I discussed with Hemal if he is worried that something was missed from his caridac work up, we could have him wear another event monitor, but I do not think this is necessary as he had a documented episode during his prior monitor. We did discuss ILRs but I advised with the frequency of his recent episodes, I would start with a wearable monitor and only use the ILR if no episodes on the wearable (again as his episodes have occurred 3 times in past week. I answered his, his mom's questions and his significant others. I gave him my contact information. He does not need to make a follow up appointment with me but stressed that he can call to see me if he wants to or symptoms persist. He is okay for discharge home from my perspective.. Manoj Spicer DO 12 LEAD ELECTROCARDIOGRAM Observed: 01/14/2018 Status: F Source: [place] 2:40 PM [facility] REPOSITORY [facility] [facility] [address] [place] [id number] Lead EKG 01/12/18 1820 MR#: [id number] Acct: [id number] Name: URIEL KWON Rep #: [id number] : 1995 22 From: Travon Wills MD Attending Dr: Status: DEP ER Ordering Dr: Jose Novak MD Date: 01/12/18 Location: ED Sex: M C Admitted: Test Reason : Blood Pressure : / mmHG Vent. Rate : 066 BPM Atrial Rate : 066 BPM P-R Int : 164 ms QRS Dur : 084 ms QT Int : 374 ms P-R-T Axes : 061 -28 026 degrees QTc Int : 392 ms Normal sinus rhythm with sinus arrhythmia Possible Left atrial enlargement Borderline ECG Confirmed by TRAVON WILLS MD ([id number]), movie editor REENA MUÑIZ ([id number]) on 01/14/2018 2:40:17 PM Referred By: MARQUISE Confirmed By:TRAVON WILLS MD 01/14/18 1440 Date Travon Wills MD CC: Erika Engel DO; Jose Novak MD Signed CONSULT Observed: 01/14/2018 Status: COMPLETED Source: [facility] 10:17 AM CLINIC OTHER CAMPUS REPOSITORY HNO ID: [id number] Author: Manoj Spicer Service: Electrophysiology Author Type: Physician Type: Consults Filed: 01/14/2018 11:12 AM Note Text: CONSULT: EP SERVICE SERVICE DATE: 01/14/2018 SERVICE TIME: 10:17 AM CONSULTING PHYSICIAN: Manoj Spicer DO PCP: Erika Engel DO ATTENDING: Fidel Baeza REASON FOR CONSULT: recurrent syncope Subjective CHIEF COMPLAINT: Syncope [R55] HISTORY OF PRESENT ILLNESS: Mr. Kwon is a 22 year old male who presents for evaluation of recurrent unexplained syncope. Uriel suggered a low voltage electrocution while at work on July 26. He was holding on the the receptacle box and plugged in a fan, he indicates that the receptacle was not grounded, but that the fan was a three prong plug. He indicates that the cord had a short and when he plugged them in, received a shock and was unable to let go of the plug and a coworker used a broom to break the connection. He deinied LOC, we believe this was AC 120v line, not sure of the current but suspect a 20amp circuit?. He did not go to the hospital noted pain at both hands the first day that resolved. He notes that 3 days later he was exeriency unusual fatigue and dizziness and went to the ED, then while walking to his room he had his first episode of syncope, he reported that he was pale, sweating and that his pulse was in the 30s. He does not recall receiving a formal diagnosis and had not been told that this was a vasovagal episode. He reports that he had a CT and Brain MRI that were reportedly normal (I have not confirmed) He had an ECG and CXR that were also largely normal and he was released. He followed up with Dr. Walter from neurology, as he was having pain and numbness in his arms, he reportedly had a negative EEG and was told his nerves we fried from his electrocution. We discussed that nerve injury is common after electrocutions and in addition to entry site pain, neuropathies can be common, they can occur acutely or be delayed. He also had been having shortness of breath and chest pain, which has since resolved. He was wearing an event monitor while on vacation when he had his next episode on August 25 which he was sitting in the car on way back to [facility] after being on the beach when he suddenly slumped over. The episode on the monitor showed NSR with heart rate of 90 bpm. He had other symptom events all showing sinus rhythm or sinus bradycardia (mild) he had one episode of bradycardia with HR of 38 which was actually an autodetection. Overall, this was largely a negative monitor. He had an echocardiogram 07/30/17 which was largely normal with LVEF 65%, he had a stress echo 09-08-2017 which showed no ischemia, he achieved 13 mets with a peak HR of 171 bpm with is 86% APMHR and a normal HR response to exercise. He later would have a heart cath, though I do not have those results, I had discussed his case with Dr. Grace by phone and it was normal. After the heart cath, Hemal was having pain in his leg and there was concern was neruropathy and was started on gabapentin and those symptoms resolved. Trisha episodes have seemed to increase in frequency with multiple recent events, he had an episode about a week ago shortly after getting up and getting ready for work, a similar episode Wednesday same scenario and then again on , while at work while sitting on a tow motor, he became dizzy, got up and symptoms worsened, he passed out for about 15 seconds after he was pale and dizzy, difficult to move, he was observed and deemed able to resume work, he reports finished his shift but felt very fatigued, about 4 hours later while at home, he was nauseated, felt dry heaves, clammy, he sat down on couch then passed out, though he may have been out 1-2 minutes. His dad notes that the episodes seem most common in the morning shortly after waking. hemal reports a consistenet prodrome feeling lightheaded, nauseated, hot and sweaty prior to episodes. They have logged his vitals after two of the episodes 106/76 49bpm and 107/70 48 bpm respectively. He notices afterwards he is very fatigued, which he describes as feeling like a zombie and this can last up to an entire day afterward. He has been off and on midodrine, he has not seen an improvement with it but he has had episodes of feeling flushed and hot when taking it. He denies any syncope or issues prior to these episodes.. PAST MEDICAL HISTORY Diagnosis Date - Bradycardia - Chest pain - Dizziness - Dyspnea - Near syncope PAST SURGICAL HISTORY Procedure Laterality Date - CARDIAC CATH - ECHO 07/30/2017 - STRESS ECHO 09/08/2017 FAMILY HISTORY Problem Relation Age of Onset - Coronary Artery Disease Paternal Grandmother - other (Afib) Maternal Grandfather Social History Substance Use Topics - Smoking status: Never Smoker - Smokeless tobacco: Never Used - Alcohol use No Prior to Admission Medications Prescriptions Last Dose Informant Patient Reported? Taking? gabapentin (NEURONTIN) 300 mg capsule 01/11/2018 at 2100 Yes Yes Sig: Take 300 mg by mouth twice daily at 6AM and 9PM. Facility-Administered Medications: None Current hospital medications: gabapentin 300 mg cap(s) (NEURONTIN) 300 mg ORAL BID (0600/2100) enoxaparin 40 mg injection (LOVENOX) 40 mg SUBCUTANEOUS DAILY NaCl 0.9% 3-5 mL 3-5 mL INTRAVENOUS q 12 H ondansetron 4 mg tab(s) (ZOFRAN) 4 mg ORAL q 6 H PRN ondansetron (PF) 4 mg injection (ZOFRAN) 4 mg INTRAVENOUS q 6 H PRN docusate sodium 100 mg cap(s) (COLACE) 100 mg ORAL BID PRN bisacodyl 10 mg suppository (DULCOLAX) 10 mg RECTAL DAILY PRN ALLERGIES No Known Allergies CARDIAC STATUS: Chest Pain: has had in past but since resolved Dyspnea: noted in past but since resolved Ankle Edema: Negative Arrhythmia: episodes of bradycardia, has noted HR fluctuations Functional Capacity: good, 13 mets on stress REVIEW OF SYSTEMS: The following systems were reviewed with the patient, and are unremarkable other than as described below. SYSTEMIC: No fever, chills, or change in weight or appetite GENERAL: does report fatigue and increased sweatiness HEENT: No recent change in vision or hearing. CARDIOVASCULAR: No murmur, gallop. Denies chest pain or palpitations. GI: No recent nausea, vomiting or diarrhea. : No recent hematuria or dysuria. SKIN: No recent itching or eruption. PSYCH: No recent active anxiety or depression. HEMATOLOGY/ONCOLOGY: No recent diagnosis of bleeding or cancer. ENDOCRINE: No recent polyuria or heat intolerance. NEURO: No recent TIA, stroke or seizures. RHEUMATOLOGY: No recent active connective tissue disease. Objective PHYSICAL EXAM: Pleasant, comfortable, not in acute distress. Awake, alert, oriented times 3. Moves all extremities. SKIN: No rash or lumps. HEENT: Normocephalic, face symmetrical. NECK: Supple, no JVD, no carotid bruit, no thyromegaly. LUNGS: Clear to auscultation bilaterally. CARDIAC: PMI present, RRR, S1 and S2, no S3 or S4, no additional heart sounds or murmurs. ABDOMEN: Soft, nontender, bowel sounds present. EXTREMITIES: No edema. PULSES: Peripheral pulses present. Body mass index is 25.21 kg/m?. O2 Therapy: Room Air No Data Recorded Patient Vitals for the past 48 hrs: BP Temp Temp src Pulse Resp SpO2 Height Weight 01/14/18 0500 118/60 37 ?C (98.6 ?F) Oral 70 18 98 % - - 01/13/18 1348 125/68 36.9 ?C (98.4 ?F) Oral 68 18 98 % - - 01/13/18 0700 105/60 36.9 ?C (98.4 ?F) Oral 60 18 98 % - - 01/12/18 2302 124/70 36.7 ?C (98.1 ?F) Oral (!) 59 18 98 % - - 01/12/18 2300 - - - - - - 190 cm (6' 2.8) 91 kg (200 lb 9.9 oz) DATA: Diagnostic tests reviewed for today's visit: Most recent labs Most recent imaging Most recent EKG Past 72 Hour Labs: Recent Labs 01/13/18 0205 01/13/18 0000 WBC -- 7.66 RBC -- 4.63 HB -- 13.5* HCT -- 40.0* MCV -- 86.4 MCH -- 29.2 MCHC -- 33.8 PLT -- 238 MPV -- 10.7 GLUC 102* -- BUN 16 -- CREAT 0.90 -- NA 142 -- K 3.7 -- CHLOR 110* -- CO2 24 -- CA 8.3* -- MG 2.4 -- Last Lab Drawn: No results found for this basename: TSH,PROBNP,TG,HDL,LDL,CHOL Prior Cardiac Workup: see PMHX Impression/Recommendations Active Problems: Recurrent syncope POA: Unknown Assessment AND Plan: I discussed with Hemal and his dad that his episodes of syncope started shortly after his electrocution episode and seem likely. Although, this is a low voltage electrocution, that does not imply less risk as low voltage electocutions have higher incidence of , though this is largely acute related to arrhythmia or respiratory failure and this occurs within minutes to hours with expectation of resolution of these issues within a few days. Delayed or salvage determiner rhythm and or conduction disturbances after an electrocution episode are not expected. Given his NSR during his recorded episode on his event monitor and his normal chronitropic response during his stress test, we can largely rule out arrhythmia or sinus node dysfunction as the cause of his syncope. His episodes of bradycardia and HR fluctuations are largely related to his autonomic tone/vagal response, and bear in mind he is only 22 years old, and this is not at all unusual at this stage of life and likely not reflective of injury to his heart or conduction system and there is no evidence that a pacemaker would benefit in any way. I discussed with Hemal and his dad that nerve injuries are rather common after electrocution and often manifest as a peripheral neuropathy, less well described is an autonomic neuropathy which I suspect is more likely at work here, he denies (with the exception of increased sweating) more widespread issues of autonomic dysfunction and based on his symptoms is suspicious for a cardiovagal issue. He has typical prodromal symptoms, his events are more frequent in the am after being supine and in a state of relative hypovolemia, his episodes are breif and no injuries, these are most typical for vasovagal episdoes and we will check a tilt test today. I explained the procedure to them and stressed, that we are going to do a passive tilt as I would be concerned that a NTG induced response in my opinion does not clarify the issue. If he has a typical VVS response during passive tilt, then I think the diagnosis is quite clear, however, if an atypical response (neuropathic [place]), then He would need additional testing such as a formal autonomic study at main campus. A normal tilt test does not exclude VVS and would not assist our work up at all. I discussed with Hemal and his dad that there are two additional possible etiologies, neither of which I will likely be of help diagnosing or treating, but given his negative cardiac assessment, if his tilt is negative, my level of suspicion would greatly elevate. The third possibility is psychogenic psuedosyncope, which is not a fake syncope, the unresponsive episodes are real, they are just not driven by disruptions of cerebral perfusion and not related to HR and BP. This is a form of a conversion disorder. We discussed that neuropsychiatric issues are common after electrocution, and will most often present as behavioral disturbance such as irritability, anger or unprovoked mood swings, similarly dizzines, neuropraxic pain and memory issues can manifest as well. If his tilt is negative then would advise a formal neuropsychiatric assessment (which is beyond my abilities) The final consideration is malingering, which is most often related to secondary gain, such as getting disability or filing Lawsuits with intent of financial gain, this is something that I would not be able to discern. I had reviewed these possibilities with Dr. Grace, when we discussed Keerthi symptoms and Dr. Grace's opinion was that this seemed unlikely and having met him and reviewed his symptoms, I agree. My suspicion is that he had some injury to his autonomic nervous system or disruption of his autonomic homeostasis likely as a result from his electrocution and this is manifesting with repeated vasovagal episodes, there has been a report of POTS following an electrocution, so I believe this is plausible. We will see what the tilt test shows, I don't think a normal tilt test excludes this possibility, but given his increase in frequency with three episodes within the last week, if the tilt is normal then I think pseudo syncope should be further explored. I did answer their questions, we breifly discussed treatment for VVS, such as self awareness recognizing the prodrome symptoms, postural response and physical counter manuevers, if his tilt is positive, will provide a more formal treatment plan. I emphasized that care is largely supportive, there would not be a quick cure and medications likely have a modest role with this diagnosis. We discussed would be difficult to predict recovery, many neurologic symptoms that occur early after an electrocution will resolve, though can take up to a year. Those symptoms that are delayed in onset tend to have a more prolonged response. I did answer Hemal and his dads questions, I stressed that I am a heart rhythm specialist, not a neurologist nor an autonomic expert and the information I shared on these issues were an honest attempt to provide information and care that is relevant and with the understanding that is not my primary area of expertise. Orders reviewed and I agree with the cardiac orders. SIGNATURE: Manoj Spicer DO PATIENT NAME: Uriel Kwon DATE: January 14, 2018 TIME: 10:17 AM PAGER/CONTACT #: [phone] PROGRESS Observed: 01/14/2018 Status: COMPLETED Source: [facility] 8:04 AM [facility] OTHER CAMPUS REPOSITORY O ID: [id number] Author: Fidel Baeza Service: Hospital Medicine Author Type: Physician Type: Progress Notes Filed: 01/14/2018 8:08 AM Note Text: DEPARTMENT OF HOSPITAL MEDICINE PROGRESS NOTE SERVICE DATE: 01/14/2018 SERVICE TIME: 8:04 AM Hospital Medicine/Primary Attending: Fidel Baeza MD NIGHT AND WEEKEND COVERAGE: Please page [phone] from 7 PM to 7 AM Subjective INTERVAL HPI: Reports good night rest. Denied fever and chills No chest pain. No nausea or vomiting Aware of planned Tilt table test today. MEDICATIONS: Reviewed Objective PHYSICAL EXAM: BP 118/60 Pulse 70 Temp (Src) 98.6 (Oral) Resp 18 Ht 6' 2.803 (1.90m) Wt 200 lb 9.9 oz (91.0kg) SpO2 98% BMI 25.21 kg/(m2). Physical Exam Performed GENERAL: Alert, no distress, cooperative SKIN: Skin color, texture, turgor normal. No rashes or lesions. HEAD/SINUSES: No significant findings EYES: PERRLA, EOMI EARS: External ears normal, canals clear NOSE: Nares normal. Septum midline. OROPHARYNX: Lips, mucosa, and tongue normal. Teeth and gums normal. Oropharynx normal. NECK: No jugulovenous distention, No carotid bruits, Carotid pulse normal contour, Supple LUNGS: Lungs clear to auscultation, Good diaphragmatic excursion CARDIAC: Normal S1 and S2; no rubs, murmurs, or gallops ABDOMEN: Abdomen soft, non-tender, BS normal, No masses or organomegaly EXTREMITIES: Extremities normal, no deformities, edema, clubbing or skin discoloration. Good capillary refill., No ulcers NEURO: No focal neuro deficit PULSES: 2+ radial, 2+ carotid Lines, Drains, and Airways Line Peripheral Admission to Hospital Short Left Antecubital 20 Gauge -- days DATA: Diagnostic tests reviewed for today's visit: Assessment/Plan 1. Recurrent syncope: Continue tele Awaiting EP input Continue to monitor. Going for tilt table test. For the last 24 hours his heart rate has maintained above 60s. Medication and Non-Pharmacologic VTE Prophylaxis/Anticoagulants Anticoagulant AND Antiplatelet Medications Start Dose Route Frequency Ordered Stop 01/13/18 0900 enoxaparin 40 mg injection (LOVENOX) (Medical At Risk ) 40 mg SUBCUTANEOUS DAILY 01/12/18 2352 -- 01/13/18 0000 pneumatic compression stockings ([place]) 01/13/18 0000 activity - mobilize patient ([place]) VTE Prophylaxis: VTE prophylaxis appropriate Disposition: Home Plan of care discussed with: Patient SIGNATURE: Fidel Baeza MD PATIENT NAME: Uriel Kwon DATE: January 14, 2018 TIME: 8:04 AM PAGER/CONTACT #: [phone] CONSULT Observed: 01/13/2018 Status: COMPLETED Source: [facility] 5:26 PM CLINIC OTHER CAMPUS REPOSITORY O ID: [id number] Author: Manoj Spicer Service: Electrophysiology Author Type: Physician Type: Consults Filed: 01/14/2018 10:17 AM Note Text: [facility]RA CONSULT: EP CARDIOLOGY SERVICE SERVICE DATE: 01/13/2018 SERVICE TIME: 5:26 PM CONSULTING PHYSICIAN: Che Amaro, MSN, [employer]AT TICKET TAKER PCP: Erika Engel DO ATTENDING: Fidel Baeza REASON FOR CONSULT: syncope Subjective CHIEF COMPLAINT: Syncope [R55] HISTORY OF PRESENT ILLNESS: Mr. Kwon is a 22 year old male who presents for evaluation of recurrent syncope. He was in his usual state of health until he plugged in an industrial size fan while at work on Jul 26, 2017. He reports there was a short in the wire, the fan wasn't grounded and he subsequently was electrocuted through the right hand. He was unable to move until a coworker knocked his hand off of the plug. He didn't seek medical attention at the time. However he experienced a syncopal episode three days later on 07/29/17 and sought medical attention at that time. He was hospitalized at [facility] and underwent an EKG, and CTA of the chest. The test were not revealing. He continued to experience syncope and wore a 30 day event monitor the month of August and actually had a syncopal episode which did not correspond with an arrhythmia. He experienced recurrent CP and a stress echocardiogram was performed in September 2017 which revealed EF 65-70%, no ischemia. He was started on Midodrine 2.5mg in August 2017, the dose was decreased to 1.25mg BID, it was discontinued in November 2017 secondary to not being tolerable. He continued to have syncope and chest pain and was evaluated by a neurologist. He was started on Neurontin. He underwent a left heart catheterization in November which revealed normal coronaries. He has been referred by Dr. Grace. He reports syncopal episodes occurring 1-2 times per week. One episode was witnessed by his girlfriend whom told him that he was unconscious for 20-25 seconds. Uriel Kwon describes onset of tingling in his extremities, clamminess, lightheadedness, prior to losing conscious suddenly. When he awakens there is a an urge to urinate or vomit. He didn't think that the Midodrine was effective and actually felt better off of it. He has seen a neurologist whom feels the episodes could be related to electrocution. He currently denies CP, SOB, edema, palpitations. His mom is present in the room with him. PAST MEDICAL HISTORY Diagnosis Date - Bradycardia - Chest pain - Dizziness - Dyspnea - Near syncope PAST SURGICAL HISTORY Procedure Laterality Date - CARDIAC CATH - ECHO 07/30/2017 - STRESS ECHO 09/08/2017 FAMILY HISTORY Problem Relation Age of Onset - Coronary Artery Disease Paternal Grandmother - other (Afib) Maternal Grandfather Social History Substance Use Topics - Smoking status: Never Smoker - Smokeless tobacco: Never Used - Alcohol use No Prior to Admission Medications Prescriptions Last Dose Informant Patient Reported? Taking? gabapentin (NEURONTIN) 300 mg capsule 01/11/2018 at 2100 Yes Yes Sig: Take 300 mg by mouth twice daily at 6AM and 9PM. Facility-Administered Medications: None Current hospital medications: gabapentin 300 mg cap(s) (NEURONTIN) 300 mg ORAL BID (06/2099) enoxaparin 40 mg injection (LOVENOX) 40 mg SUBCUTANEOUS DAILY NaCl 0.9% 3-5 mL 3-5 mL INTRAVENOUS q 12 H ondansetron 4 mg tab(s) (ZOFRAN) 4 mg ORAL q 6 H PRN ondansetron (PF) 4 mg injection (ZOFRAN) 4 mg INTRAVENOUS q 6 H PRN docusate sodium 100 mg cap(s) (COLACE) 100 mg ORAL BID PRN bisacodyl 10 mg suppository (DULCOLAX) 10 mg RECTAL DAILY PRN ALLERGIES No Known Allergies REVIEW OF SYSTEMS: The following systems were reviewed with the patient, and are unremarkable other than as described below. SYSTEMIC: No fever, chills, or change in weight or appetite HEENT: No recent change in vision or hearing. CARDIOVASCULAR: See HPI GI: No recent nausea, vomiting or diarrhea. : No recent hematuria or dysuria. SKIN: No recent itching or eruption. PSYCH: No recent active anxiety or depression. HEMATOLOGY/ONCOLOGY: No recent diagnosis of bleeding or cancer. ENDOCRINE: No recent polyuria or heat intolerance. NEURO: SEE HPI RHEUMATOLOGY: No recent active connective tissue disease. Objective PHYSICAL EXAM: Pleasant, comfortable, not in acute distress. Awake, alert, oriented times 3. Moves all extremities. SKIN: No rash or lumps. HEENT: Normocephalic, face symmetrical. NECK: Supple, no JVD, no carotid bruit, no thyromegaly. LUNGS: Clear to auscultation bilaterally. CARDIAC: PMI present, RRR, S1 and S2, no S3 or S4, no additional heart sounds or murmurs. ABDOMEN: Soft, nontender, bowel sounds present. EXTREMITIES: No edema. PULSES: Peripheral pulses present. Body mass index is 25.21 kg/m?. O2 Therapy: Room Air No Data Recorded Patient Vitals for the past 48 hrs: BP Temp Temp src Pulse Resp SpO2 Height Weight 01/13/18 1348 125/68 36.9 ?C (98.4 ?F) Oral 68 18 98 % - - 01/13/18 0700 105/60 36.9 ?C (98.4 ?F) Oral 60 18 98 % - - 01/12/18 2302 124/70 36.7 ?C (98.1 ?F) Oral (!) 59 18 98 % - - 01/12/18 2300 - - - - - - 190 cm (6' 2.8) 91 kg (200 lb 9.9 oz) DATA: Diagnostic tests reviewed for today's visit: Most recent labs Most recent telemetry Past 72 Hour Labs: Recent Labs 01/13/18 0205 01/13/18 0000 WBC -- 7.66 RBC -- 4.63 HB -- 13.5* HCT -- 40.0* MCV -- 86.4 MCH -- 29.2 MCHC -- 33.8 PLT -- 238 MPV -- 10.7 GLUC 102* -- BUN 16 -- CREAT 0.90 -- NA 142 -- K 3.7 -- CHLOR 110* -- CO2 24 -- CA 8.3* -- MG 2.4 -- Last Lab Drawn: No results found for this basename: TSH,PROBNP,TG,HDL,LDL,CHOL Prior Cardiac Workup: LHC, stress echocardiogram : Impression/Recommendations Active Problems: Recurrent syncope POA: Unknown Assessment AND Plan: unknown etiology. Cardiac workup consisting of 30 day event monitor, stress echocardiogram, left heart catheterization has been non-revealing. Dr. Spicer will see him tomorrow and has scheduled a tilt table test around noon. NPO has been ordered. Uriel Kwon and his mother were given information regarding a tilt table test. Telemetry shows SB-SR 49-55 bpm. Accidental Electrocution in July 2017. He has had syncope and CP since the incident. Resolved Problems: * No resolved hospital problems. * please see my full consultation as separate note.Manoj Spicer, SIGNATURE: Che Amaro, MSN, GRAIN [employer]ER.[employer] TICK[employer] TAKER PATIENT NAME: Uriel Kwon DATE: January 13, 2018 TIME: 5:26 PM PAGER/CONTACT #: [phone] CASE MGT INIT Observed: 01/13/2018 Status: COMPLETED Source[facility] 11:24 AM CLINIC OTHER CAMPUS REPOSITORY HNO ID: [id number] Author: Angie (Rn) JOSESITO Gifford Service: Care Management Author Type: Registered Nurse Type: Care Mgt Initial Assessment Filed: 01/13/2018 11:36 AM Note Text: CARE MANAGEMENT: ASSESSMENT AND DISCHARGE PLAN SERVICE DATE: 01/13/2018 SERVICE TIME: 11:25 AM PRIMARY CARE PHYSICIAN: Erika Engel DO ADMISSION STATUS: Observation MEDICAL: Patient/Tuyere Fitter Stated Goals: To have reduction in symptoms Health Insurance: [facility] [employer] PPO [facility] Issues Impacting Discharge Plan: hx of bradycardia and near syncope Last Admission Date: none Is this Within the Past 30 days? No Advance Directive: Current Advance Directive: None Marker Hand Attempted to Assist with AD Completion: Yes Health Literacy: 1. How often do you need to have someone help you when you read instructions, pamphlets, or other written material from your doctor or pharmacy? Never - 1 2. How confident are you filling out medical forms by yourself? Extremely - 1 If Patient scores > 3 on either question, the following interventions were put into place: Patient did not score > 3 FUNCTIONAL AND COGNITIVE/BEHAVIORAL PRIOR TO ADMISSION: Baseline Mental Status: Alert AND Oriented, Person, Place , Time and Situation Functional Status: Independent and currently not driving. Does Patient Currently Receive Any Community Services or Home Care? None Equipment Prior to Admission: None Has the Patient Been in a Longterm Facility in the Past 30 days? No SOCIAL: Living Arrangement: Home Lives With: girlfriend, Jessica Early Financial Resources: Employed: [employer] Primary Contact: Extended Emergency Contact Information Primary Emergency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 mucosa moist EYES: PERRLA, EOMI NECK: No jugulovenous distention, Supple, no adenopathy LUNGS: Lungs clear to auscultation, no wheezes, ronchi, or rales CARDIAC: RRR, Normal S1 and S2; no rubs, murmurs, or gallops ABDOMEN: Abdomen soft, non-tender, BS normal, No masses or organomegaly EXTREMITIES: Extremities normal, no deformities, edema, clubbing or skin discoloration. NEURO: Sensation grossly intact, Cranial nerves II-XII intact, moves all 4 extremities, speech was clear and coherent - no chronic lopez DATA: Diagnostic tests reviewed for today's visit: Most recent labs and imaging results. CBC: No results for input(s): WBC, RBC, HB, HCT, PLT, MCV, MCH, MPV, RDW in the last 24 hours. Coags: No results for input(s): INR, APTT in the last 24 hours. Invalid input(s): PT BMP: No results for input(s): NA, K, CHLOR, CO2, BUN, CREAT, GLUC in the last 24 hours. CMP: No results for input(s): NA, K, CHLOR, CO2, BUN, CREAT, GLUC, TPROT, CA, MG, ALBUMIN, TBILI, ALKPHOS, ALT, AST, ANION in the last 24 hours. Cardiac Enzymes: No results for input(s): CK, MB, CKMB, TROPT in the last 24 hours. Liver Function, Amylase, Lipase: No results for input(s): TPROT, ALB, ALT, AST, ALKPHOS, TBILI, AMYLASE, LIPASE, LACTATE in the last 24 hours. MG/PHOS: No results for input(s): MG, P in the last 24 hours. Renal Panel: No results for input(s): ALBUMIN, CREAT, BUN, GLUC, CA, P, CHLOR, K, CO2, NA in the last 24 hours. Heme: No results for input(s): RETICP, ABSRETIC, LD, TSERING, FE, TIBC, TRANSFERSAT in the last 24 hours. Assessment/Plan 1. Recurrent syncope-placed on telemetry. We will have Dr. Spicer see the patient. Check morning labs. VTE Prophylaxis: Lovenox 40mg Sub Q Daily Disposition: Home Functional Status Prior to Admit: Active Plan of care discussed with: Patient and RN at bedside Code status: Full SIGNATURE: Brina Pena DO PATIENT NAME: Uriel Kwon DATE: January 12, 2018 TIME: 11:29 PM PAGER/CONTACT #: [phone] Fidel Baeza MD 01/13/2018 9:21 AM Signed [facility]PARTMENT OF [facility] MEDICINE PROGRESS NOTE SERVICE DATE: 01/13/2018 SERVICE TIME: 9:06 AM Hospital Medicine/Primary Attending: Fidel Baeza MD NIGHT AND WEEKEND COVERAGE: Please page [phone] from 7 PM to 7 AM Subjective INTERVAL HPI: Reports good night sleep. Noted that symptoms are usually worse in the morning. Noted about 6 episodes of syncope. His symptoms are usually followed by palpitation and diaphoresis. Denied any chest pain. Review of his chart showed that he's had Event recorder, Stress test and 2 D echo. MEDICATIONS: Reviewed Objective PHYSICAL EXAM: BP 105/60 Pulse 60 Temp (Src) 98.4 (Oral) Resp 18 Ht 6' 2.803 (1.90m) Wt 200 lb 9.9 oz (91.0kg) SpO2 98% BMI 25.21 kg/(m2). Physical Exam Performed GENERAL: Alert, no distress, cooperative SKIN: Skin color, texture, turgor normal. No rashes or lesions. HEAD/SINUSES: No significant findings EYES: PERRLA, EOMI EARS: External ears normal, canals clear NOSE: Nares normal. Septum midline. OROPHARYNX: Lips, mucosa, and tongue normal. Teeth and gums normal. Oropharynx normal. NECK: No jugulovenous distention, No carotid bruits, Carotid pulse normal contour, Supple BACK: Back symmetric, Normal curvature, ROM normal, No CVAT. LUNGS: Lungs clear to auscultation, Good diaphragmatic excursion CARDIAC: Normal S1 and S2; no rubs, murmurs, or gallops, Pectus Excavatum ABDOMEN: Abdomen soft, non-tender, BS normal, No masses or organomegaly EXTREMITIES: Extremities normal, no deformities, edema, clubbing or skin discoloration. Good capillary refill., No ulcers NEURO: No focal neuro deficit PULSES: 2+ radial, 2+ carotid Lines, Drains, and Airways Line Peripheral Admission to Hospital Short Left Antecubital 20 Gauge -- days DATA: Diagnostic tests reviewed for today's visit: Assessment/Plan 1. Recurrent syncope: Etiology unknown. Past cardiac work up unrevealing Consult placed to EP Continue cardiac monitoring Unsure if he will benefit from TILT table test. Medication and Non-Pharmacologic VTE Prophylaxis/Anticoagulants Anticoagulant AND Antiplatelet Medications Start Dose Route Frequency Ordered Stop 01/13/18 0900 enoxaparin 40 mg injection (LOVENOX) (Medical At Risk ) 40 mg SUBCUTANEOUS DAILY 01/12/18 2352 -- 01/13/18 0000 pneumatic compression stockings ([place] 01/13/18 0000 activity - mobilize [place] ([place] VTE Prophylaxis: VTE prophylaxis appropriate Disposition: Home Plan of care discussed with: Patient SIGNATURE: Fidel Baeza MD PATIENT NAME: Uriel Kwon DATE: January 13, 2018 TIME: 9:06 AM PAGER/CONTACT #: [phone] Angie Gifford RN, RN 01/13/2018 11:36 AM Signed CARE MANAGEMENT: ASSESSMENT AND DISCHARGE PLAN SERVICE DATE: 01/13/2018 SERVICE TIME: 11:25 AM PRIMARY CARE PHYSICIAN: Erika Engel DO ADMISSION STATUS: Observation MEDICAL: Patient/Tuyere Fitter Stated Goals: To have reduction in symptoms Health Insurance: [facility] UMR OPTIONS O [facility] Health Issues Impacting Discharge Plan: hx of bradycardia and near syncope Last Admission Date: none Is this Within the Past 30 days? No Advance Directive: Current Advance Directive: None Marker Hand Attempted to Assist with AD Completion: Yes Health Literacy: 1. How often do you need to have someone help you when you read instructions, pamphlets, or other written material from your doctor or pharmacy? Never - 1 2. How confident are you filling out medical forms by yourself? Extremely - 1 If Patient scores > 3 on either question, the following interventions were put into place: Patient did not score > 3 FUNCTIONAL AND COGNITIVE/BEHAVIORAL PRIOR TO ADMISSION: Baseline Mental Status: Alert AND Oriented, Person, Place , Time and Situation Functional Status: Independent and currently not driving. Does Patient Currently Receive Any Community Services or Home Care? None Equipment Prior to Admission: None Has the Patient Been in a Longterm Facility in the Past 30 days? No SOCIAL: Living Arrangement: Home Lives With: girlfriend, Jessica Early Financial Resources: Employed: [employer] Primary Contact: Extended Emergency Contact Information Primary Emergency Contact: Marguerite Mora Mobile Relation: Grandparent Supportive: Yes Other Important Patient Contacts: Father: Cirilo Kwon [phone] Caregiver Assessment: Caregiver is ready, willing and able to meet the patient's needs as recommended by the inter-professional team? Yes Patient's transition needs and plan for meeting these needs: Assist of family Does the patient have an acute stroke diagnosis, or has the patient had a stroke during this admission? No Medication Adherence: I am convinced of the importance of my prescription medication: Agree completely - 0 I worry that my prescription medication will do more harm than good to me Disagree mostly - 0 I feel financially burdened by my [id number] expenses for my prescription medication: Disagree mostly -0 Patient is categorized as low risk < 2 Are you interested in bedside delivery of your medications? No Food Concerns: In the Last Month, Have You had Trouble Getting Food? No trouble getting food During the Last Month, Have You Worried Whether Your Food Would Run Out Before You Had Enough Money to Buy More? No Is the Patient Psychosocially Complex? No ASSESSMENT AND PLAN: Medical Needs: Fall risk or frequent falls Psychosocial Needs: None FREEDOM OF CHOICE EXPLAINED: Yes parents and patient. POTENTIAL TRANSITION PLANS Home Chart reviewed. Met with patient and parents at the bedside. 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 DC plan is return home with parents or with GF, undecided at the moment. EP consult is pending. Will follow for their recommendations. SIGNATURE: Angie Gifford RN PATIENT NAME: Uriel Kwon DATE: January 13, 2018 TIME: 11:25 AM PAGER/CONTACT #: [phone] Manoj Spicer DO 01/14/2018 10:17 AM Signed [facility] CONSULT: EP CARDIOLOGY SERVICE SERVICE DATE: 01/13/2018 SERVICE TIME: 5:26 PM CONSULTING PHYSICIAN: Che Amaro, MSN, GRAIN BR[employer]ER.[employer]ERRYBOAT TICKET TAKER PCP: Erika Engel DO ATTENDING: Fidel Baeza REASON FOR CONSULT: syncope Subjective CHIEF COMPLAINT: Syncope [R55] HISTORY OF PRESENT ILLNESS: Mr. Kwon is a 22 year old male who presents for evaluation of recurrent syncope. He was in his usual state of health until he plugged in an industrial size fan while at work on Jul 26, 2017. He reports there was a short in the wire, the fan wasn't grounded and he subsequently was electrocuted through the right hand. He was unable to move until a coworker knocked his hand off of the plug. He didn't seek medical attention at the time. However he experienced a syncopal episode three days later on 07/29/17 and sought medical attention at that time. He was hospitalized at [facility] and underwent an EKG, and CTA of the chest. The test were not revealing. He continued to experience syncope and wore a 30 day event monitor the month of August and actually had a syncopal episode which did not correspond with an arrhythmia. He experienced recurrent CP and a stress echocardiogram was performed in September 2017 which revealed EF 65-70%, no ischemia. He was started on Midodrine 2.5mg in August 2017, the dose was decreased to 1.25mg BID, it was discontinued in November 2017 secondary to not being tolerable. He continued to have syncope and chest pain and was evaluated by a neurologist. He was started on Neurontin. He underwent a left heart catheterization in November which revealed normal coronaries. He has been referred by Dr. Grace. He reports syncopal episodes occurring 1-2 times per week. One episode was witnessed by his girlfriend whom told him that he was unconscious for 20-25 seconds. Uriel Kwon describes onset of tingling in his extremities, clamminess, lightheadedness, prior to losing conscious suddenly. When he awakens there is a an urge to urinate or vomit. He didn't think that the Midodrine was effective and actually felt better off of it. He has seen a neurologist whom feels the episodes could be related to electrocution. He currently denies CP, SOB, edema, palpitations. His mom is present in the room with him. PAST MEDICAL HISTORY Diagnosis Date - Bradycardia - Chest pain - Dizziness - Dyspnea - Near syncope PAST SURGICAL HISTORY Procedure Laterality Date - CARDIAC CATH - ECHO 07/30/2017 - STRESS ECHO 09/08/2017 FAMILY HISTORY Problem Relation Age of Onset - Coronary Artery Disease Paternal Grandmother - other (Afib) Maternal Grandfather Social History Substance Use Topics - Smoking status: Never Smoker - Smokeless tobacco: Never Used - Alcohol use No Prior to Admission Medications Prescriptions Last Dose Informant Patient Reported? Taking? gabapentin (NEURONTIN) 300 mg capsule 01/11/2018 at 2100 Yes Yes Sig: Take 300 mg by mouth twice daily at 6AM and 9PM. Facility-Administered Medications: None Current hospital medications: gabapentin 300 mg cap(s) (NEURONTIN) 300 mg ORAL BID () enoxaparin 40 mg injection (LOVENOX) 40 mg SUBCUTANEOUS DAILY NaCl 0.9% 3-5 mL 3-5 mL INTRAVENOUS q 12 H ondansetron 4 mg tab(s) (ZOFRAN) 4 mg ORAL q 6 H PRN ondansetron (PF) 4 mg injection (ZOFRAN) 4 mg INTRAVENOUS q 6 H PRN docusate sodium 100 mg cap(s) (COLACE) 100 mg ORAL BID PRN bisacodyl 10 mg suppository (DULCOLAX) 10 mg RECTAL DAILY PRN ALLERGIES No Known Allergies REVIEW OF SYSTEMS: The following systems were reviewed with the patient, and are unremarkable other than as described below. SYSTEMIC: No fever, chills, or change in weight or appetite HEENT: No recent change in vision or hearing. CARDIOVASCULAR: See HPI GI: No recent nausea, vomiting or diarrhea. : No recent hematuria or dysuria. SKIN: No recent itching or eruption. PSYCH: No recent active anxiety or depression. HEMATOLOGY/ONCOLOGY: No recent diagnosis of bleeding or cancer. ENDOCRINE: No recent polyuria or heat intolerance. NEURO: SEE HPI RHEUMATOLOGY: No recent active connective tissue disease. Objective PHYSICAL EXAM: Pleasant, comfortable, not in acute distress. Awake, alert, oriented times 3. Moves all extremities. SKIN: No rash or lumps. HEENT: Normocephalic, face symmetrical. NECK: Supple, no JVD, no carotid bruit, no thyromegaly. LUNGS: Clear to auscultation bilaterally. CARDIAC: PMI present, RRR, S1 and S2, no S3 or S4, no additional heart sounds or murmurs. ABDOMEN: Soft, nontender, bowel sounds present. EXTREMITIES: No edema. PULSES: Peripheral pulses present. Body mass index is 25.21 kg/m?. O2 Therapy: Room Air No Data Recorded Patient Vitals for the past 48 hrs: BP Temp Temp src Pulse Resp SpO2 Height Weight 01/13/18 1348 125/68 36.9 ?C (98.4 ?F) Oral 68 18 98 % - - 01/13/18 0700 105/60 36.9 ?C (98.4 ?F) Oral 60 18 98 % - - 01/12/18 2302 124/70 36.7 ?C (98.1 ?F) Oral (!) 59 18 98 % - - 01/12/18 2300 - - - - - - 190 cm (6' 2.8) 91 kg (200 lb 9.9 oz) DATA: Diagnostic tests reviewed for today's visit: Most recent labs Most recent telemetry Past 72 Hour Labs: Recent Labs 01/13/18 0205 01/13/18 0000 WBC -- 7.66 RBC -- 4.63 HB -- 13.5* HCT -- 40.0* MCV -- 86.4 MCH -- 29.2 MCHC -- 33.8 PLT -- 238 MPV -- 10.7 GLUC 102* -- BUN 16 -- CREAT 0.90 -- NA 142 -- K 3.7 -- CHLOR 110* -- CO2 24 -- CA 8.3* -- MG 2.4 -- Last Lab Drawn: No results found for this basename: TSH,PROBNP,TG,HDL,LDL,CHOL Prior Cardiac Workup: LHC, stress echocardiogram : Impression/Recommendations Active Problems: Recurrent syncope POA: Unknown Assessment AND Plan: unknown etiology. Cardiac workup consisting of 30 day event monitor, stress echocardiogram, left heart catheterization has been non-revealing. Dr. Spicer will see him tomorrow and has scheduled a tilt table test around noon. NPO has been ordered. Uriel Kwon and his mother were given information regarding a tilt table test. Telemetry shows SB- SR 49-55 bpm. Accidental Electrocution in July 2017. He has had syncope and CP since the incident. Resolved Problems: * No resolved hospital problems. * please see my full consultation as separate note.Manoj Spicer DO SIGNATURE: Che Amaro, MSN, GRAIN BROKER.[employer]ERRYBOAT TICKET TAKER PATIENT NAME: Uriel Kwon DATE: January 13, 2018 TIME: 5:26 PM PAGER/CONTACT #: [phone] Previous Version Fidel Baeza MD 01/14/2018 8:08 AM Signed DEPARTMENT OF HOSPITAL MEDICINE PROGRESS NOTE SERVICE DATE: 01/14/2018 SERVICE TIME: 8:04 AM Hospital Medicine/Primary Attending: Fidel Baeza MD NIGHT AND WEEKEND COVERAGE: Please page [phone] from 7 PM to 7 AM Subjective INTERVAL HPI: Reports good night rest. Denied fever and chills No chest pain. No nausea or vomiting Aware of planned Tilt table test today. MEDICATIONS: Reviewed Objective PHYSICAL EXAM: BP 118/60 Pulse 70 Temp (Src) 98.6 (Oral) Resp 18 Ht 6' 2.803 (1.90m) Wt 200 lb 9.9 oz (91.0kg) SpO2 98% BMI 25.21 kg/(m2). Physical Exam Performed GENERAL: Alert, no distress, cooperative SKIN: Skin color, texture, turgor normal. No rashes or lesions. HEAD/SINUSES: No significant findings EYES: PERRLA, EOMI EARS: External ears normal, canals clear NOSE: Nares normal. Septum midline. OROPHARYNX: Lips, mucosa, and tongue normal. Teeth and gums normal. Oropharynx normal. NECK: No jugulovenous distention, No carotid bruits, Carotid pulse normal contour, Supple LUNGS: Lungs clear to auscultation, Good diaphragmatic excursion CARDIAC: Normal S1 and S2; no rubs, murmurs, or gallops ABDOMEN: Abdomen soft, non-tender, BS normal, No masses or organomegaly EXTREMITIES: Extremities normal, no deformities, edema, clubbing or skin discoloration. Good capillary refill., No ulcers NEURO: No focal neuro deficit PULSES: 2+ radial, 2+ carotid Lines, Drains, and Airways Line Peripheral Admission to Hospital Short Left Antecubital 20 Gauge -- days DATA: Diagnostic tests reviewed for today's visit: Assessment/Plan 1. Recurrent syncope: Continue tele Awaiting EP input Continue to monitor. Going for tilt table test. For the last 24 hours his heart rate has maintained above 60s. Medication and Non-Pharmacologic VTE Prophylaxis/Anticoagulants Anticoagulant AND Antiplatelet Medications Start Dose Route Frequency Ordered Stop 01/13/18 0900 enoxaparin 40 mg injection (LOVENOX) (Medical At Risk ) 40 mg SUBCUTANEOUS DAILY 01/12/18 2352 -- 01/13/18 0000 pneumatic compression stockings ([place]) 01/13/18 0000 activity - mobilize [place] ([place] VTE Prophylaxis: VTE prophylaxis appropriate Disposition: Home Plan of care discussed with: Patient SIGNATURE: Fidel Baeza MD PATIENT NAME: Uriel Kwon DATE: January 14, 2018 TIME: 8:04 AM PAGER/CONTACT #: [phone] Manoj Spicer DO 01/14/2018 11:12 AM Signed CONSULT: EP SERVICE SERVICE DATE: 01/14/2018 SERVICE TIME: 10:17 AM CONSULTING PHYSICIAN: Manoj Spicer DO PCP: Erika Engel DO ATTENDING: Fidel Baeza REASON FOR CONSULT: recurrent syncope Subjective CHIEF COMPLAINT: Syncope [R55] HISTORY OF PRESENT ILLNESS: Mr. Kwon is a 22 year old male who presents for evaluation of recurrent unexplained syncope. Uriel suggered a low voltage electrocution while at work on July 26. He was holding on the the receptacle box and plugged in a fan, he indicates that the receptacle was not grounded, but that the fan was a three prong plug. He indicates that the cord had a short and when he plugged them in, received a shock and was unable to let go of the plug and a coworker used a broom to break the connection. He deinied LOC, we believe this was AC 120v line, not sure of the current but suspect a 20amp circuit?. He did not go to the hospital noted pain at both hands the first day that resolved. He notes that 3 days later he was exeriency unusual fatigue and dizziness and went to the ED, then while walking to his room he had his first episode of syncope, he reported that he was pale, sweating and that his pulse was in the 30s. He does not recall receiving a formal diagnosis and had not been told that this was a vasovagal episode. He reports that he had a CT and Brain MRI that were reportedly normal (I have not confirmed) He had an ECG and CXR that were also largely normal and he was released. He followed up with Dr. Walter from neurology, as he was having pain and numbness in his arms, he reportedly had a negative EEG and was told his nerves we fried from his electrocution. We discussed that nerve injury is common after electrocutions and in addition to entry site pain, neuropathies can be common, they can occur acutely or be delayed. He also had been having shortness of breath and chest pain, which has since resolved. He was wearing an event monitor while on vacation when he had his next episode on August 25 which he was sitting in the car on way back to [facility] after being on the beach when he suddenly slumped over. The episode on the monitor showed NSR with heart rate of 90 bpm. He had other symptom events all showing sinus rhythm or sinus bradycardia (mild) he had one episode of bradycardia with HR of 38 which was actually an autodetection. Overall, this was largely a negative monitor. He had an echocardiogram 07/30/17 which was largely normal with LVEF 65%, he had a stress echo 09-08-2017 which showed no ischemia, he achieved 13 mets with a peak HR of 171 bpm with is 86% APMHR and a normal HR response to exercise. He later would have a heart cath, though I do not have those results, I had discussed his case with Dr. Grace by phone and it was normal. After the heart cath, Hemal was having pain in his leg and there was concern was neruropathy and was started on gabapentin and those symptoms resolved. Trisha episodes have seemed to increase in frequency with multiple recent events, he had an episode about a week ago shortly after getting up and getting ready for work, a similar episode Wednesday same scenario and then again on , while at work while sitting on a tow motor, he became dizzy, got up and symptoms worsened, he passed out for about 15 seconds after he was pale and dizzy, difficult to move, he was observed and deemed able to resume work, he reports finished his shift but felt very fatigued, about 4 hours later while at home, he was nauseated, felt dry heaves, clammy, he sat down on couch then passed out, though he may have been out 1-2 minutes. His dad notes that the episodes seem most common in the morning shortly after waking. hemal reports a consistenet prodrome feeling lightheaded, nauseated, hot and sweaty prior to episodes. They have logged his vitals after two of the episodes 106/76 49bpm and 107/70 48 bpm respectively. He notices afterwards he is very fatigued, which he describes as feeling like a zombie and this can last up to an entire day afterward. He has been off and on midodrine, he has not seen an improvement with it but he has had episodes of feeling flushed and hot when taking it. He denies any syncope or issues prior to these episodes.. PAST MEDICAL HISTORY Diagnosis Date - Bradycardia - Chest pain - Dizziness - Dyspnea - Near syncope PAST SURGICAL HISTORY Procedure Laterality Date - CARDIAC CATH - ECHO 07/30/2017 - STRESS ECHO 09/08/2017 FAMILY HISTORY Problem Relation Age of Onset - Coronary Artery Disease Paternal Grandmother - other (Afib) Maternal Grandfather Social History Substance Use Topics - Smoking status: Never Smoker - Smokeless tobacco: Never Used - Alcohol use No Prior to Admission Medications Prescriptions Last Dose Informant Patient Reported? Taking? gabapentin (NEURONTIN) 300 mg capsule 01/11/2018 at 2100 Yes Yes Sig: Take 300 mg by mouth twice daily at 6AM and 9PM. Facility-Administered Medications: None Current hospital medications: gabapentin 300 mg cap(s) (NEURONTIN) 300 mg ORAL BID () enoxaparin 40 mg injection (LOVENOX) 40 mg SUBCUTANEOUS DAILY NaCl 0.9% 3-5 mL 3-5 mL INTRAVENOUS q 12 H ondansetron 4 mg tab(s) (ZOFRAN) 4 mg ORAL q 6 H PRN ondansetron (PF) 4 mg injection (ZOFRAN) 4 mg INTRAVENOUS q 6 H PRN docusate sodium 100 mg cap(s) (COLACE) 100 mg ORAL BID PRN bisacodyl 10 mg suppository (DULCOLAX) 10 mg RECTAL DAILY PRN ALLERGIES No Known Allergies CARDIAC STATUS: Chest Pain: has had in past but since resolved Dyspnea: noted in past but since resolved Ankle Edema: Negative Arrhythmia: episodes of bradycardia, has noted HR fluctuations Functional Capacity: good, 13 mets on stress REVIEW OF SYSTEMS: The following systems were reviewed with the patient, and are unremarkable other than as described below. SYSTEMIC: No fever, chills, or change in weight or appetite GENERAL: does report fatigue and increased sweatiness HEENT: No recent change in vision or hearing. CARDIOVASCULAR: No murmur, gallop. Denies chest pain or palpitations. GI: No recent nausea, vomiting or diarrhea. : No recent hematuria or dysuria. SKIN: No recent itching or eruption. PSYCH: No recent active anxiety or depression. HEMATOLOGY/ONCOLOGY: No recent diagnosis of bleeding or cancer. ENDOCRINE: No recent polyuria or heat intolerance. NEURO: No recent TIA, stroke or seizures. RHEUMATOLOGY: No recent active connective tissue disease. Objective PHYSICAL EXAM: Pleasant, comfortable, not in acute distress. Awake, alert, oriented times 3. Moves all extremities. SKIN: No rash or lumps. HEENT: Normocephalic, face symmetrical. NECK: Supple, no JVD, no carotid bruit, no thyromegaly. LUNGS: Clear to auscultation bilaterally. CARDIAC: PMI present, RRR, S1 and S2, no S3 or S4, no additional heart sounds or murmurs. ABDOMEN: Soft, nontender, bowel sounds present. EXTREMITIES: No edema. PULSES: Peripheral pulses present. Body mass index is 25.21 kg/m?. O2 Therapy: Room Air No Data Recorded Patient Vitals for the past 48 hrs: BP Temp Temp src Pulse Resp SpO2 Height Weight 01/14/18 0500 118/60 37 ?C (98.6 ?F) Oral 70 18 98 % - - 01/13/18 1348 125/68 36.9 ?C (98.4 ?F) Oral 68 18 98 % - - 01/13/18 0700 105/60 36.9 ?C (98.4 ?F) Oral 60 18 98 % - - 01/12/18 2302 124/70 36.7 ?C (98.1 ?F) Oral (!) 59 18 98 % - - 01/12/18 2300 - - - - - - 190 cm (6' 2.8) 91 kg (200 lb 9.9 oz) DATA: Diagnostic tests reviewed for today's visit: Most recent labs Most recent imaging Most recent EKG Past 72 Hour Labs: Recent Labs 01/13/18 0205 01/13/18 0000 WBC -- 7.66 RBC -- 4.63 HB -- 13.5* HCT -- 40.0* MCV -- 86.4 MCH -- 29.2 MCHC -- 33.8 PLT -- 238 MPV -- 10.7 GLUC 102* -- BUN 16 -- CREAT 0.90 -- NA 142 -- K 3.7 -- CHLOR 110* -- CO2 24 -- CA 8.3* -- MG 2.4 -- Last Lab Drawn: No results found for this basename: TSH,PROBNP,TG,HDL,LDL,CHOL Prior Cardiac Workup: see PMHX Impression/Recommendations Active Problems: Recurrent syncope POA: Unknown Assessment AND Plan: I discussed with Hemal and his dad that his episodes of syncope started shortly after his electrocution episode and seem likely. Although, this is a low voltage electrocution, that does not imply less risk as low voltage electocutions have higher incidence of , though this is largely acute related to arrhythmia or respiratory failure and this occurs within minutes to hours with expectation of resolution of these issues within a few days. Delayed or salvage determiner rhythm and or conduction disturbances after an electrocution episode are not expected. Given his NSR during his recorded episode on his event monitor and his normal chronitropic response during his stress test, we can largely rule out arrhythmia or sinus node dysfunction as the cause of his syncope. His episodes of bradycardia and HR fluctuations are largely related to his autonomic tone/vagal response, and bear in mind he is only 22 years old, and this is not at all unusual at this stage of life and likely not reflective of injury to his heart or conduction system and there is no evidence that a pacemaker would benefit in any way. I discussed with Hemal and his dad that nerve injuries are rather common after electrocution and often manifest as a peripheral neuropathy, less well described is an autonomic neuropathy which I suspect is more likely at work here, he denies (with the exception of increased sweating) more widespread issues of autonomic dysfunction and based on his symptoms is suspicious for a cardiovagal issue. He has typical prodromal symptoms, his events are more frequent in the am after being supine and in a state of relative hypovolemia, his episodes are breif and no injuries, these are most typical for vasovagal episdoes and we will check a tilt test today. I explained the procedure to them and stressed, that we are going to do a passive tilt as I would be concerned that a NTG induced response in my opinion does not clarify the issue. If he has a typical VVS response during passive tilt, then I think the diagnosis is quite clear, however, if an atypical response (neuropathic [place]), then He would need additional testing such as a formal autonomic study at main campus. A normal tilt test does not exclude VVS and would not assist our work up at all. I discussed with Hemal and his dad that there are two additional possible etiologies, neither of which I will likely be of help diagnosing or treating, but given his negative cardiac assessment, if his tilt is negative, my level of suspicion would greatly elevate. The third possibility is psychogenic psuedosyncope, which is not a fake syncope, the unresponsive episodes are real, they are just not driven by disruptions of cerebral perfusion and not related to HR and BP. This is a form of a conversion disorder. We discussed that neuropsychiatric issues are common after electrocution, and will most often present as behavioral disturbance such as irritability, anger or unprovoked mood swings, similarly dizzines, neuropraxic pain and memory issues can manifest as well. If his tilt is negative then would advise a formal neuropsychiatric assessment (which is beyond my abilities) The final consideration is malingering, which is most often related to secondary gain, such as getting disability or filing Lawsuits with intent of financial gain, this is something that I would not be able to discern. I had reviewed these possibilities with Dr. Grace, when we discussed Keerthi symptoms and Dr. Grace's opinion was that this seemed unlikely and having met him and reviewed his symptoms, I agree. My suspicion is that he had some injury to his autonomic nervous system or disruption of his autonomic homeostasis likely as a result from his electrocution and this is manifesting with repeated vasovagal episodes, there has been a report of POTS following an electrocution, so I believe this is plausible. We will see what the tilt test shows, I don't think a normal tilt test excludes this possibility, but given his increase in frequency with three episodes within the last week, if the tilt is normal then I think pseudo syncope should be further explored. I did answer their questions, we breifly discussed treatment for VVS, such as self awareness recognizing the prodrome symptoms, postural response and physical counter manuevers, if his tilt is positive, will provide a more formal treatment plan. I emphasized that care is largely supportive, there would not be a quick cure and medications likely have a modest role with this diagnosis. We discussed would be difficult to predict recovery, many neurologic symptoms that occur early after an electrocution will resolve, though can take up to a year. Those symptoms that are delayed in onset tend to have a more prolonged response. I did answer Hemal and his dads questions, I stressed that I am a heart rhythm specialist, not a neurologist nor an autonomic expert and the information I shared on these issues were an honest attempt to provide information and care that is relevant and with the understanding that is not my primary area of expertise. Orders reviewed and I agree with the cardiac orders. SIGNATURE: Manoj Spicer DO PATIENT NAME: Uriel Kwon DATE: January 14, 2018 TIME: 10:17 AM PAGER/CONTACT #: [id number] Progress Notes (CARD AG AKSWATI OLIVEIRAB HRA): Manoj Spicer DO 01/12/2018 5:39 PM Signed Received a call tonight from Dr. Grace in [place], he is concerned that Uriel Kwon was to see Dr. Gregg on Wednesday, but apparently his dad was Called By someone in the office that said Dr. Gregg could not see as is workers comp. Apparently, words were exchanged and the dad was hung Up on. I do not know if this is accurate, just what I was told. Two, things: Dr Grace, indicates that this is not an active workers comp case, but under private insurance, also, I believe that Dr. Gregg sees workers comp? I do know that About two years ago, I tried to drop workers comp, and Michaela would not allow me to. Please see if Dr Morris would like to see the patient as planned, if not I can likely see Wednesday morning at 9 am. Apparently, the patients dad is very worried about the young man, and Dr. Grace is a good referring nuclear medicine chief technologist, so I hope we can resolve this to everyones satisfaction. Manoj Spicer, DO Jennyfer Jimenez RN 01/13/2018 10:01 AM Signed I was called by Dr. Gregg after hours last PM for clarification in scheduling this patients appointment. The patient ( not the father as this patient is new to us and we do not have a form allowing us to speak with a family member about patient info per HIPPA guidelines) was called by Joan the EP secretary of state yesterday to notify him that Dr. Gregg does not take [facility] patients and that he would be scheduled with another physician in our office, patient verbalized understanding. The info from Dr. Grace's office with the referral states this is a workers comp case, claim number already assigned. Patient's father called back to A office, was argumentative with inappropriate language after he was told that the patient is of legal age and our office would need to speak to the patient directly vs a family member, the father was eventually told that we were going to terminate the call and call Dr. Grace's office for clarification in the AM as that office was already closed. Dr. Gregg states that if indeed we do end up seeing this patient he wants him to see Dr. Spicer r/t syncope diagnosis and not himself. We have spoken to Dr. Grace's office this AM to clarify records and workers comp claim, patient was taken to ER overnight and is currently an inpatient at [facility]. Dr. Grace himself called this AM spoke to Conrad Chavez to clarify events that took place yesterday, verbalized understanding when the above scenario was explained. Dr. Grace states that although forms were included with their referral this is not a [facility] case. Dr. Grace was thankful and states that the patient's father has since apologized to him for his behavior during the phone call with our office staff yesterday. JOSESITO Guerrero 01/13/2018 10:31 AM Signed I was one of the involved parties and attest that the information above is true and accurate. Melisa Chavez INTERNAL MEDICINE Observed: 12/29/2017 Status: F Source: [facility] OFFICE VISIT 8:46 AM [facility] [address] [place] [address] [place] [address] OFFICE VISIT Date of Service: 12/27/17 MR#: [id number] Acct: [id number] Name: URIEL KWON Rep #: [id number] : 1995 Provider: Kain Arora NP Age/Sex: 22/M Location: [facility] Status: Signed Intake Vital Signs12/27/17 Body Mass Index (BMI) 26.6 12/27/17 Height 6 ft 2 in Intake Visit Reasons: Blood in stool Chief Complaint: blood in stool last Fri Is patient in pain?: No Allergies No Known Allergies Allergy (Verified 12/14/17 10:22) Medications ondansetron HCl 4 mg tablet 4 mg PO BID-TID PRN #10 tab 11/03/17 [Rx Confirmed 12/14/17] ibuprofen 800 mg tablet 800 mg PO TID PRN #30 tab 11/05/17 [Rx Confirmed 12/14/17] cyclobenzaprine 10 mg tablet 5 mg PO TID PRN tab 12/02/17 [History Confirmed 12/14/17] hydrocodone 5 mg-acetaminophen 325 mg tablet 0.5 tab PO Q6H PRN tab 12/02/17 [History Confirmed 12/14/17] midodrine 2.5 mg tablet 2.5 mg PO BID #60 tab 12/23/17 [Rx] gabapentin 100 mg capsule 100 mg PO BID #60 cap 12/27/17 [Rx Confirmed 12/27/17] gabapentin 300 mg capsule 300 mg PO BID 12/27/17 [History Confirmed 12/27/17] PFSH Medical History Accidental electrocution (Chronic) Dizziness (Acute) Acute chest pain (Acute) Syncope (Acute) Back problem (Chronic) Surgical History History of left heart catheterization (Chronic 12/08/17) Family History Grandfather Pancreatic adenocarcinoma Atrial fibrillation, chronic Grandmother Lung cancer Social History Smoking Status: Never smoker alcohol intake: never substance use type: marijuana caffeine: Yes Type: carbonated beverages Number of servings: 2, coffee Number of servings: 1 what type of physical activity do you participate in: none HPI HPI Chief Complaint: blood in stool last Wed Details: URIEL KWON, is a 22 M who presents to the office today for an acute visit of blood in his stool last Wednesday and an episode of abdominal pain which quickly resolved. He has a past medical history as listed above. The patient states that over the past couple of years on occasion he has noted blood in his stool which she describes as a maroon color. He states that this was worked up in the past and was negative. However this past Wednesday he was having a bowel movement and had a sharp pain in his abdomen during the bowel movement and then noted maroon blood in his stool. He states that the abdominal pain immediately resolved after the bowel movement. He does not state that he was straining. He has daily bowel movements and is currently not noting any discoloration of the stool. Denies any significant family history of colon cancer. Denies any history of ulcers in the past. He does note that he was recently put on gabapentin 300 twice daily and that seems to be helping with his nerve pain in his chest, however he only takes it once at night due to it making him tired. He otherwise denies any fever, chills, nausea, vomiting, shortness of breath. ROS Const Constitutional: Positive for fatigue and weakness; no weight change, body ache, chills, sleep problems, fever(s), change in appetite, snoring, frequent falls, headache(s) or excessive sweating Eyes Eyes: No change in vision, eye pain, light sensitivity or blurry vision ENT ENT: No headache(s), abnormal hearing, ear pain, tinnitus, nasal congestion, sore throat or neck pain Resp Respiratory: No snoring, cough, shortness of breath or wheezing Cardio Cardiology: No excessive sweating, chest pain at rest, chest pain with exertion, shortness of breath, dyspnea on exertion, palpitations, orthopnea or lightheadedness Gastro GI: Positive for abdominal pain and blood in stool (1x last Wednesday); no change in bowel habits, constipation, diarrhea, vomiting, nausea/dyspepsia or cramping Genitourinary Male: No painful urination, urinary incontinence, urinary frequency, urinary urgency, blood in urine, testicle pain or other Musc Musculoskeletal: No neck pain, abnormal walking, joint pain, back pain, limited range of motion, numbness or tingling Skin Skin: No redness, dry skin, itching, lesions, wounds or rash Neuro Neurology: Positive for weakness; no frequent falls, headache(s), abnormal hearing, abnormal walking, numbness, tingling, abnormal speech, dizziness or memory loss Psych Psychiatric: No change in appetite, No memory loss, No anxiety, No depression, No Thoughts of harming yourself/Others Endo Endocrine: Positive for fatigue; no excessive sweating, cold intolerance, increased thirst/drinking, heat intolerance, flushing or increased hunger Aller/Imm Allergy/Immunologic: No wheezing, itchy eyes, hives or seasonal allergy symptoms Theo/Lymp Hematologic/Lymphatic: No easy bleeding, easy bruising or enlarged lymph nodes Exam Const General: cooperative, comfortable, no acute distress Nutritional Appearance: average body habitus, well nourished Orientation: alert, oriented x3 Limitations: mental status not altered Resp Effort AND Inspection: normal respiratory effort, able to speak in complete sentences, normal respiratory pattern, symmetric chest movement, no audible wheezes, no cough Auscultation: Bilateral: Clear to Auscultation Cardio Palpation: normal PMI Rate: regular rate Heart Sounds: S1 normal, S2 normal, normal S1 and S2, no click, no gallops, no murmurs, no rubs GI Inspection: normal to inspection Auscultation: normal bowel sounds, no hyperactive bowel sounds, no hypoactive bowel sounds Palpation: soft, no hepatosplenomegaly, nontender Rectal Exam: visual inspection normal, normal sphincter tone, No abnormal stool, No fissure, No laceration, No lesions, No tenderness Skin General: no rashes or lesions noted, elasticity normal, turgor normal Lesions: no lesions Rashes: no rashes Neuro General: alert, awake, oriented x3, CN's II-XI intact bilaterally Speech: speech normal Gait: normal gait Motor: muscle tone normal throughout Extrem General: normal to inspection, normal gait, no edema, no pedal edema Psych Appearance: grossly normal Mental Status: mental status grossly normal Affect: normal affect Attitude: cooperative Thought Process: normal Assessment AND Plan Problems 1. Abdominal pain R10.9 2. Rectal bleeding K62.5 Plan Both the patient's abdominal pain and rectal bleeding has resolved. He denies any bright red blood in his stool and states that it is maroon colored intermittently times the last couple of years. He does note that he has had his rectal bleeding worked up in the past that was negative. Due to his complaint, will check fecal occult blood x3 and if positive will send to general surgery. Discussed red flag symptoms requiring urgent medical attention. Discussed not straining with bowel movements and discussed appropriate fluid intake. Patient to follow-up as previously scheduled or sooner if needed. Orders Orders: Medications New: Plan Detail Follow Up As previously scheduled or sooner Coding Level of Care Code Off vis,est,level 3 Diagnoses Abdominal pain R10.9 Rectal bleeding K62.5 12/29/17 0846 <Electronically signed by Kain DUKE> Date Kain DUKE Cosigner Signature: Date (if applicable) CC: ARTERIAL DUPLEX US, Observed: 12/14/2017 Status: F Source: [facility] LIMITED 4:27 PM [facility] [address] [place] [address] Art Duplex US Unilat Lower Ext 12/14/17 1125 MR#: [id number] Acct: [id number] Name: URIEL KWON Rep #: [id number] : 1995 22 From: Clifford Dove MD Attending Dr: Joan Hopper Status: REG CLI Ordering Dr: Joan Hopper Date: 12/14/17 Location: [facility] Sex: M C Admitted: Reason For Study: R groin pain Right Velocities Left Velocities Common Femoral Artery, mid = 115 cm./sec. Common Femoral Artery, mid = 108 cm./sec. BOOK AUTHOR measures .927 x 1.1 cm. BOOK AUTHOR measures .851 x .910 cm. CFV is compressible with normal venous flow CFV is compressible with normal venous flow patterns. patterns. No Pseudo or A-V Fistula identified. Procedure The exam was diagnostic. Prelim called to Joan Hopper. Interpretation Summary Common femoral arteries appear bilaterally patent, demonstrating pulsatile color flow bilaterally. Common femoral veins are patent and compressible bilaterally, demonstrating normal, phasic venous flow. There is no evidence of pseudoanuerysm, arterio-venous fistula, or other iatrogenic abnormality on either side. Ordering Physician: Joan Hopper Performed By: Douglas Wilson RVT 12/14/17 1626 Date Clifford Dove MD CC: Erika Engel DO; Joan Hopper Date Dictated: 12/14/17 1125 Date Transcribed: 12/14/171625 [employer] Code Enforcement Officer: Signed CARDIOLOGY VISIT Observed: 12/14/2017 Status: F Source: [facility] REPORT 11:19 AM [facility] [address] [place] [address] OFFICE VISIT Date of Service: 12/14/17 MR#: [id number] Acct: [id number] Name: URIEL KWON Rep #: [id number] : 1995 Provider: Joan Hopper Age/Sex: 22/M Location: [facility] [place] [place] Status: Signed HPI HPI Chief Complaint: Routine f/u Details: URIEL KWON, is a 22 M who presents to the office today for an urgent appointment for groin pain following his heart catheterization last week. Patient has a history of atypical chest pain and syncope following electrocution. Heart catheterization demonstrated normal coronary arteries. It was felt that his chest pain was likely related to his electrocution Patient states that his groin pain started over the weekend. He now notes that is a 6 out of 10. He finds it very difficult to put his weight on his right foot. He also finds that the pain does radiate up into his back and down to his leg into his groin this is almost persistent. Intake Vital Signs12/14/17 Height 6 ft 2 in 12/14/17 Weight: 208 lb 12/14/17 Body Mass Index (BMI) 26.6 12/14/17 Blood Pressure 110/70 Intake Visit Reasons: LEG PAIN POST CATH [employer] Required: No Accompanied by: Father Is patient in pain?: Yes (right leg) Pain scale (1-10): 5 Allergies No Known Allergies Allergy (Verified 12/14/17 10:22) Medications ondansetron HCl 4 mg tablet 4 mg PO BID-TID PRN #10 tab 11/03/17 [Rx Confirmed 12/14/17] ibuprofen 800 mg tablet 800 mg PO TID PRN #30 tab 11/05/17 [Rx Confirmed 12/14/17] cyclobenzaprine 10 mg tablet 5 mg PO TID PRN tab 12/02/17 [History Confirmed 12/14/17] hydrocodone 5 mg-acetaminophen 325 mg tablet 0.5 tab PO Q6H PRN tab 12/02/17 [History Confirmed 12/14/17] Ejection fraction %: 65 to 70 PFSH Medical History Accidental electrocution (Chronic) Dizziness (Acute) Acute chest pain (Acute) Syncope (Acute) Back problem (Chronic) Surgical History History of left heart catheterization (Chronic 12/08/17) Family History Grandfather Pancreatic adenocarcinoma Atrial fibrillation, chronic Grandmother Lung cancer Social History Smoking Status: Never smoker alcohol intake: never substance use type: marijuana caffeine: Yes Type: carbonated beverages Number of servings: 2, coffee Number of servings: 1 what type of physical activity do you participate in: none ROS Const Const: Negative for weakness, fatigue, fever(s) or headache(s) Eyes Eyes: Negative for blind spots, loss of peripheral vision or transient loss of vision ENT ENT: Negative for headache(s), dizziness, tinnitus or Nosebleed/epistaxis Cardio Chest Pain: No Palpitations: No Edema: None Muscle aches with walking: None Resp Respiratory: Negative for SOB with activity, SOB at rest, SOB orthopnea\SOB lying down or Cough GI GI: Negative nausea, vomiting, heartburn or vomiting blood/hematemesis : Negative for hematuria Musc Musc: Positive for muscle aches/ myalgia (see HPI) Neuro Neuro: Negative for weakness, headache(s), dizziness, near syncope, syncope, lightheadedness or orthostatic symptoms Theo Hematologic/Lymphatic: Negative for easy bleeding Endo Endo: Negative for fatigue Cardiology Exam Const Appearance: cooperative, no acute distress and well developed Orientation: alert, awake and oriented x3 Head Head: normocephalic and atraumatic Mouth: moist mucous membranes Eyes General: appearance normal, both eyes and all related structures Conjunctivae: conjunctivae normal Pupils: PERRL EOM: EOM intact bilaterally Neck Neck: normal visual inspection, no lymphadenopathy and no JVD Carotids: Negative bruit Neck Mass: Negative Neck mass Chest Chest inspection: normal inspection of the chest and symmetric chest movement Auscultation: Bilateral: Clear to Auscultation Cardio Palpation: normal PMI Rate: regular rate Rhythm: regular rhythm Heart sounds: S1 normal and S2 normal; negative rub, gallop or murmur GI GI: normal to inspection, soft, no hepatosplenomegaly and bowel sounds present; negative tender Neuro General: alert, awake, oriented x3, CN's II-XI intact bilaterally and moves all extremities Extremities Pulses: Normal: Right Femoral Pulse (small hematoma noted, old echymossis), Left Femoral Pulse, Right Posterior Tibial Pulse, Left Posterior Tibial Pulse, Right Radial Pulse, Left Radial Pulse Bruits: Negative: Right Femoral Bruit Lower Extremity Edema: None: Bilateral Psych Psychological: normal affect Supplemental Info Stress Echo: Interpretation Summary The estimated ejection fraction is 65 %. Normal, adequate, treadmill echocardiogram. Negative for ischemia by EKG and echocardiographic criteria. No anginal symptoms noted. Appropriate blood pressure response to exercise. Average exercise capacity for age. Rare PACs and PVCs noted during exercise. Final LVEF is 75%. Assessment AND Plan Problems 1. Right groin pain R10.31 Plan Will obtain an ultrasound to evaluate for AV fistula. Advised that if pain does not improve that this could be related to neuro issues from his electrocution. Encouraged that he follow-up with his primary care doctor or his neurologist. Orders Orders: Plan Detail Follow Up 12/14/17 (as needed) Coding Level of Care Code Off vis,est,level 4 Diagnoses Right groin pain R10.31 Coding Level of Care Code Off vis,est,level 4 Diagnoses Right groin pain R10.31 12/14/17 1119 <Electronically signed by Joan JAFFE> Date Joan JAFFE Cosigner Signature: Date (if applicable) CC: Erika Engel DO CARDIOLOGY VISIT Observed: 12/06/2017 Status: F Source: [facility] REPORT 1:20 PM [facility] [facility] [address] [place] [address] OFFICE VISIT Date of Service: 12/02/17 MR#: [id number] Acct: [id number] Name: URIEL KWON Rep #: [id number] : 1995 Provider: Paulo Grace MD Age/Sex: 22/M Location: [facility] [place] Status: Signed HPI HPI Chief Complaint: Routine f/u Details: URIEL KWON, is a 22 M who presents to the office today for a cardiovascular outpatient follow-up. He is a nondiabetic, lifelong non-smoker, and non-drinker. In July 2017 he was shocked by 110 V of AC current while playing in a portable fan. He did not seek medical attention after his accident. The following days he had progressively worsening fatigue and chest pain. When being evaluated in the emergency department on 07/29/2017 he had a syncopal episode. He was admitted and workup was negative. After being discharged he underwent a 30-day event monitor that showed sinus bradycardia. He again had a syncopal episode on 08/26/2017 while vacationing in the [facility]. Prior to electrocution, he had no symptoms of bradycardia, presyncope, syncopal, or seizure-like activity. Due to ongoing chest pain he underwent a stress echocardiogram on 09/08/2017 that was considered a normal, adequate, treadmill echocardiogram that was negative for ischemia by EKG and echocardiographic criteria. No anginal symptoms were noted. Appropriate blood pressure response to exercise was noted. Average exercise capacity for age. Rare PACs and PVCs noted during exercise, and final ejection fraction of 75%. Patient states on 11/06/17 he noticed chest pain while lying on the couch. He states on 11/07/17 he continued to have off and on chest pain at rest. He states this pain is associated with a clammy sensation. He states he stopped his midodrine five days prior to her visit in November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 speech, dizziness or memory loss Psych Psychiatric: No change in appetite, No memory loss, No anxiety, No depression, No Thoughts of harming yourself/Others Endo Endocrine: No fatigue, excessive sweating, cold intolerance, increased thirst/drinking, heat intolerance, flushing or increased hunger Aller/Imm Allergy/Immunologic: No wheezing, itchy eyes, hives or seasonal allergy symptoms Theo/Lymp Hematologic/Lymphatic: No easy bleeding, easy bruising or enlarged lymph nodes Exam Const General: cooperative Cardio Palpation: normal PMI Rate: regular rate Rhythm: regular rhythm Skin General: no rashes or lesions noted Neuro General: oriented x3 Psych Appearance: grossly normal Mental Status: mental status grossly normal Mood: congruent mood Assessment AND Plan Problems 1. Accidental electrocution, subsequent encounter T75.4XXD Plan With a completely normal physical examination and the fact that he feels well at this point in time I do not think any further studies are needed. But if he has the episodes where he is getting the tachycardia I wanted him to document the heart rate because it could be that he is having SVT and we may need to put him on a Holter monitor. At this point I just asked him to return as needed. Coding Level of Care Code Off vis,est,level 3 Diagnoses Accidental electrocution, subsequent encounter T75.4XXD Encounter type: subsequent encounter 11/10/17 1450 <Electronically signed by Erika Engel DO> Date Erika Engel DO Cosign Signature: Date (if applicable) CC: CARDIOLOGY VISIT Observed: 11/10/2017 Status: F Source: [place] REPORT 9:28 AM [facility] [address] [place] [address]. [address] [place] [address] OFFICE VISIT Date of Service: 11/08/17 MR#: [id number] Acct: [id number] Name: URIEL KWON Rep #: [id number] : 1995 Provider: GARETH Hanley Age/Sex: 22/M Location: [facility] – [place] Status: Signed HPI HPI Details: URIEL KWON, is a 22 M who presents to the office today for a cardiovascular outpatient follow-up. He is a nondiabetic, lifelong non-smoker, and non-drinker. In July 2017 he was shocked by 110 V of AC current while playing in a portable fan. He did not seek medical attention after his accident. The following days he had progressively worsening fatigue and chest pain. When being evaluated in the emergency department on 07/29/2017 he had a syncopal episode. He was admitted and workup was negative. After being discharged he underwent a 30-day event monitor that showed sinus bradycardia. He again had a syncopal episode on 08/26/2017 while vacationing in the [facility]. Prior to electrocution, he had no symptoms of bradycardia, presyncope, syncopal, or seizure-like activity. Due to ongoing chest pain he underwent a stress echocardiogram on 09/08/2017 that was considered a normal, adequate, treadmill echocardiogram that was negative for ischemia by EKG and echocardiographic criteria. No anginal symptoms were noted. Appropriate blood pressure response to exercise was noted. Average exercise capacity for age. Rare PACs and PVCs noted during exercise, and final ejection fraction of 75%. Patient states on 11/06/17 he noticed chest pain while lying on the couch. He states on 11/07/17 he continued to have off and on chest pain at rest. He states this pain is associated with a clammy sensation. He denies any chest pain with with exertion over the last three days. He denies any chest pain currently. He states he stopped his midodrine five days ago and feels better since stopping it. He states one episode of palpitations at dinner for 5 seconds one day ago during episode of chest pain. Pt denies arm, jaw, or neck discomfort. His exercise tolerance is stable. Pt denies symptoms of CHF, lightheadedness, dizziness, near syncopal or syncopal episodes. Pt denies edema or claudication issues. Pt. denies orthopnea, PND, fever, chills, blood in urine, blood in stool, myalgia, or unexplainable fatigue. 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 Accompanied by: None Is patient in pain?: No Allergies No Known Allergies Allergy (Verified 11/08/17 15:32) Medications midodrine 2.5 mg tablet 1.25 mg PO BID #60 tab 09/21/17 [Rx Confirmed 10/13/17] benzonatate 100 mg capsule 100 mg PO TID PRN #30 cap 11/03/17 [Rx Confirmed 11/08/17] ondansetron HCl 4 mg tablet 4 mg PO BID-TID PRN #10 tab 11/03/17 [Rx Confirmed 11/08/17] cyclobenzaprine 10 mg tablet 5 mg PO TID PRN #10 tab 11/05/17 [Rx Confirmed 11/08/17] ibuprofen 800 mg tablet 800 mg PO TID PRN #30 tab 11/05/17 [Rx Confirmed 11/08/17] Ejection fraction %: 65 to 70 PFSH Medical History Accidental electrocution (Acute) Dizziness (Acute) Acute chest pain (Acute) Syncope (Acute) Back problem (Acute) Family History Grandfather Pancreatic adenocarcinoma Atrial fibrillation, chronic Grandmother Lung cancer Social History Smoking Status: Light Smoker (<10/day) alcohol intake: never substance use type: marijuana caffeine: Yes Type: carbonated beverages Number of servings: 2, coffee Number of servings: 1 what type of physical activity do you participate in: none ROS Const Const: Negative for fatigue, weakness, body ache, fever(s) or chills ENT ENT: Negative for dizziness Cardio Chest Pain: Yes Palpitations: Yes Edema: None Muscle aches with walking: None Resp Respiratory: Negative for SOB with activity, SOB at rest, SOB orthopnea\SOB lying down or paroxysmal nocturnal dyspnea GI GI: Negative nausea, black,tarry stools, bright, red blood in stools or vomiting blood/hematemesis : Negative for hematuria or frequent nighttime urination/ nocturia Musc Musc: Negative for muscle aches/ myalgia Skin Skin: Negative non-healing lesions or rash Neuro Neuro: Negative for weakness, dizziness, lightheadedness, near syncope, syncope or orthostatic symptoms Endo Endo: Negative for fatigue Allergy Allergy/Immunology: Negative for rash Cardiology Exam Const Appearance: cooperative, healthy appearing, comfortable and no acute distress Nutritional Appearance: average body habitus and well nourished Orientation: alert, awake and oriented x3 Head Head: normal to inspection Ears: hearing grossly normal bilaterally Nose: external nose normal Face and Sinus: face symmetric Mouth: oral mucosae normal Eyes General: appearance normal, both eyes and all related structures Eyelids: eyelids normal EOM: EOM intact bilaterally Neck Neck: no JVD and normal visual inspection Carotids: normal carotid upstroke Chest Chest inspection: normal inspection of the chest and normal respiratory effort; negative cough Auscultation: Bilateral: Clear to Auscultation Cardio Rate: regular rate Rhythm: regular rhythm Heart sounds: S1 normal and S2 normal; negative rub, gallop or murmur GI GI: normal to inspection Neuro General: alert, awake, oriented x3 and CN's II-XI intact bilaterally Skin Skin: no rashes or lesions noted Extremities Pulses: Normal: Right Posterior Tibial Pulse, Left Posterior Tibial Pulse, Right Radial Pulse, Left Radial Pulse Lower Extremity Edema: None: Bilateral Psych Psychological: normal affect Supplemental Info Stress echocardiogram on 09/08/2017 that was considered a normal, adequate, treadmill echocardiogram that was negative for ischemia by EKG and echocardiographic criteria. No anginal symptoms were noted. Appropriate blood pressure response to exercise was noted. Average exercise capacity for age. Rare PACs and PVCs noted during exercise, and final ejection fraction of 75%. Echocardiogram from July 2017 showed an ejection fraction of 65%, normal diastology for age, trivial mitral valve insufficiency, trivial tricuspid valve insufficiency, RVSP of 31 mmHg, and no comparison study available. 30-day event monitor from July 2017 showed sinus bradycardia, sinus rhythm, and sinus tachycardia. Patient's symptoms of fainting correlated with sinus rhythm. Assessment AND Plan 1. Acute chest pain R07.9 Patito - SRIKANTH Head The exact etiology of this is unclear. His most recent stress test in September 2017 was negative. His echocardiogram in July 2017 showed ejection fraction of 65%. He does acknowledge one episode of chest pain associated with palpitations. He was instructed to contact our office if he notices that it increases in frequency or secondary symptoms. If this occurs we will repeat a 30-day event monitor to correlate rhythm with symptoms. His recent 30-day event monitor in July 2017 did not reveal any dysrhythmias. At this time we will continue to monitor symptoms. He has an appointment at the end of this month in which he will reevaluate symptoms and any changes. 2. Dizziness R42 ELY EstradaC He denies any dizziness. His blood pressure has been well- controlled today in our office and at primary care physician's office over the last month. He has been off his midodrine for the last 5 days. At this time we will continue to hold midodrine and monitor blood pressure and symptoms. 3. Accidental electrocution, subsequent encounter T75.4XXD Plan - SRIKANTH Head Patient states that he has been evaluated by neurology last month and that is he was told that he is expected to make a full recovery. Plan Detail Other Medications On Hold: Additional Comments - SRIKANTH Head Discussed the above patient with Dr. Grace, he agrees with the plan of care. Thank you for allowing us to participate in the patients plan of care, if you have any questions please do not hesitate to call. This note was generated using a voice recognition system and there may be incorrect words, spelling or punctuation that were not noted when reviewing the office note prior to saving. Coding Level of Care Code Off vis,est,level 3 Diagnoses Acute chest pain R07.9 Dizziness R42 Accidental electrocution, subsequent encounter T75.4XXD Encounter type: subsequent encounter Coding Level of Care Code Off vis,est,level 3 Diagnoses Acute chest pain R07.9 Dizziness R42 Accidental electrocution, subsequent encounter T75.4XXD Encounter type: subsequent encounter 11/08/17 1617 <Electronically signed by Ej GRAVESC> Date Ej GRAVESC 11/10/17 0928<Electronically signed by Paulo Grace MD> Cosigner Signature: Date (if applicable) Paulo Grace MD CC: Luna Lozada MD INTERNAL MEDICINE Observed: 11/05/2017 Status: F Source: [place] OFFICE VISIT 11:19 AM [facility] [place] [place] [address] OFFICE VISIT Date of Service: 11/05/17 MR#: [id number] Acct: [id number] Name: URIEL KWON Rep #: [id number] : 1995 Provider: Kain Arora NP Age/Sex: 22/M [place] [facility] Status: Signed Intake Vital Signs11/05/17 Height 6 ft 2 in Intake Visit Reasons: GORDON X2+DAYS Chief Complaint: headache Is patient in pain?: Yes (headache) Pain scale (1-10): 10 Allergies No Known Allergies Allergy (Verified 10/13/17 16:06) Medications midodrine 2.5 mg tablet 1.25 mg PO BID #60 tab 09/21/17 [Rx Confirmed 10/13/17] benzonatate 100 mg capsule 100 mg PO TID PRN #30 cap 11/03/17 [Rx Confirmed 11/03/17] ondansetron HCl 4 mg tablet 4 mg PO BID-TID PRN #10 tab 11/03/17 [Rx Confirmed 11/03/17] cyclobenzaprine 10 mg tablet 5 mg PO TID PRN #10 tab 11/05/17 [Rx Confirmed 11/05/17] ibuprofen 800 mg tablet 800 mg PO TID PRN #30 tab 11/05/17 [Rx Confirmed 11/05/17] PFSH Medical History Accidental electrocution (Acute) Dizziness (Acute) Acute chest pain (Acute) Syncope (Acute) Back problem (Acute) Family History Grandfather Pancreatic adenocarcinoma Atrial fibrillation, chronic Grandmother Lung cancer Social History Smoking Status: Light Smoker (<10/day) alcohol intake: never substance use type: marijuana what type of physical activity do you participate in: none HPI HPI Chief Complaint: headache Details: URIEL KWON, is a 22 M who presents to the office today for an acute complaint of ongoing headache. He has a past medical history as listed above. The patient was seen earlier this week for upper respiratory infection most likely viral and for some GI complaints. He states that his nasal congestion and upper respiratory condition and his diarrhea have improved dramatically. He does however state that he continues to note a chronic dull headache. He states that his headache is currently a 4 out of 10 dull frontal headache. He does state that he has a history of constant headaches when he gets sick. He notes taking 1000 mg of Tylenol this morning which did provide mild relief. He denies this being the worst headache of his life or a sharp tearing headache. He denies any other symptoms. He does state that his headache is slightly worse when leaning forward. The patient otherwise denies any fever, chills, nausea, vomiting, shortness of breath, chest pain or pressure, palpitations, orthopnea, lower extremity edema, syncope or presyncopal episodes. He is also requesting a work note. 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); no abnormal hearing, ear pain, tinnitus, sore throat or neck pain Resp Respiratory: No snoring, cough, shortness of breath or wheezing Cardio Cardiology: No excessive sweating, chest pain at rest, chest pain with exertion, shortness of breath, dyspnea on exertion, palpitations, orthopnea or lightheadedness Gastro GI: No abdominal pain, change in bowel habits, constipation, diarrhea, vomiting, nausea/dyspepsia or cramping Genitourinary Male: No painful urination, urinary incontinence, urinary frequency, urinary urgency, blood in urine, testicle pain or other Musc Musculoskeletal: No neck pain, abnormal walking, joint pain, back pain, limited range of motion, numbness or tingling Skin Skin: No redness, dry skin, itching, lesions, wounds or rash Neuro Neurology: Positive for headache(s) (bad headache for about 3 days); no weakness, frequent falls, abnormal hearing, abnormal walking, numbness, tingling, abnormal speech, dizziness or memory loss Psych Psychiatric: No change in appetite, No memory loss, No anxiety, No depression, No Thoughts of harming yourself/Others Endo Endocrine: No fatigue, excessive sweating, cold intolerance, increased thirst/drinking, heat intolerance, flushing or increased hunger Aller/Imm Allergy/Immunologic: No wheezing, itchy eyes, hives or seasonal allergy symptoms Theo/Lymp Hematologic/Lymphatic: No easy bleeding, easy bruising or enlarged lymph nodes Exam Const General: cooperative, comfortable, no acute distress Nutritional Appearance: average body habitus, well nourished Orientation: alert, oriented x3 Limitations: mental status not altered HENMT Head: normal to inspection Ears: hearing grossly normal bilaterally Nose: external nose normal Eyes General: appearance normal, both eyes and all related structures Resp Effort AND Inspection: normal respiratory effort, able to speak in complete sentences, normal respiratory pattern, symmetric chest movement, no audible wheezes, no cough Auscultation: Bilateral: Clear to Auscultation Cardio Palpation: normal PMI Rate: regular rate Heart Sounds: S1 normal, S2 normal, normal S1 and S2, no click, no gallops, no murmurs, no rubs Neuro General: alert, awake, oriented x3, CN's II-XI intact bilaterally Speech: speech normal Gait: normal gait Motor: muscle tone normal throughout Extrem General: normal to inspection, normal gait, no edema, no pedal edema Psych Appearance: grossly normal Mental Status: mental status grossly normal Affect: normal affect Attitude: cooperative Thought Process: normal Assessment AND Plan Problems 1. Tension headache G44.209 Plan Patient symptoms are consistent with that of a tension headache. Most likely complicated by his recent upper respiratory viral infection. Discussed continuing with an antihistamine for his nasal congestion which is improving. Did discuss utilizing ibuprofen and Tylenol for his headache. A short course of muscle relaxant was called to his pharmacy. Educated patient on proper use of medication and potential side effects. Patient verbalized understanding. Discussed red flag symptoms such as worse headache of her life or tearing ripping sharp sensation headache that require urgent medical attention. Patient verbalized understanding. Patient to follow-up as previously scheduled or sooner if needed. Work excuse was given. Medications New: Coding Level of Care Code Off vis,est,level 3 Diagnoses Tension headache G44.209 11/05/17 1119 <Electronically signed by Kain DUKE> Date Kain DUKE Cosigner Signature: Date (if applicable) CC: INTERNAL MEDICINE Observed: 11/03/2017 Status: F Source: [place] OFFICE VISIT 11:39 AM [facility] [address] [place] [address] OFFICE VISIT Date of Service: 11/03/17 MR#: [id number] Acct: [id number] Name: URIEL KWON Rep #: [id number] : 1995 Provider: Kain Arora NP Age/Sex: 22/M Location: [facility] Status: Signed Intake Vital Signs11/03/17 Height 6 ft 2 in Intake Visit Reasons: fatigue migraine upset stomach chills Chief Complaint: flu like symptoms Is patient in pain?: No Allergies No Known Allergies Allergy (Verified 10/13/17 16:06) Medications midodrine 2.5 mg tablet 1.25 mg PO BID #60 tab 09/21/17 [Rx Confirmed 10/13/17] benzonatate 100 mg capsule 100 mg PO TID PRN #30 cap 11/03/17 [Rx Confirmed 11/03/17] ondansetron HCl 4 mg tablet 4 mg PO BID-TID PRN #10 tab 11/03/17 [Rx Confirmed 11/03/17] PFSH Medical History Accidental electrocution (Acute) Dizziness (Acute) Acute chest pain (Acute) Syncope (Acute) Back problem (Acute) Family History Grandfather Pancreatic adenocarcinoma Atrial fibrillation, chronic Grandmother Lung cancer Social History Smoking Status: Light Smoker (<10/day) alcohol intake: never substance use type: marijuana what type of physical activity do you participate in: none HPI HPI Chief Complaint: flu like symptoms Details: URIEL KWON, is a 22 M who presents to the office today for an acute visit of headache, cough, nasal congestion, occasional muscle aches, and subjective fever with nausea vomiting and diarrhea. Patient has a past medical history as listed above. The patient notes that the onset of his symptoms was approximately 5 days ago and has been persisting. He does note that multiple other family members have had similar symptoms/complaints. He has not tried anything [id number]. He does note that he has been nauseated and vomited one time yesterday and has been having approximately 3 episodes of diarrhea per day. He denies any other alleviating or aggravating factors. He does note that he felt too sick to remain at work today and is requesting a work excuse. The patient otherwise denies any fever, chills, shortness of breath, chest pain or pressure, palpitations, orthopnea, lower extremity edema, syncope or presyncopal episodes. ROS Const Constitutional: Positive for body ache, chills, fatigue, change in appetite (lack of), weakness and headache(s) (pounding); no weight change, sleep problems, fever(s), snoring, frequent falls or excessive sweating Eyes Eyes: No change in vision, eye pain, light sensitivity or blurry vision ENT ENT: Positive for headache(s) (pounding), nasal congestion and dry mouth; no abnormal hearing, ear pain, tinnitus, sore throat, neck pain, ear discharge, sinus pressure, sinus pain, nasal discharge, post nasal drip or dental pain Resp Respiratory: Positive for cough Cough: Yes non-productive and productive; no snoring, shortness of breath or wheezing Cardio Cardiology: No excessive sweating, chest pain at rest, chest pain with exertion, shortness of breath, dyspnea on exertion, palpitations, orthopnea or lightheadedness Gastro GI: Positive for diarrhea, vomiting, nausea/dyspepsia and loose stools; no abdominal pain, change in bowel habits, constipation, cramping, blood in stool or pain with swallowing Genitourinary Male: No painful urination, urinary incontinence, urinary frequency, urinary urgency, blood in urine, testicle pain or other Musc Musculoskeletal: Positive for body aches; no neck pain, abnormal walking, joint pain, back pain, limited range of motion, numbness, tingling or muscle weakness Skin Skin: No redness, dry skin, itching, lesions, wounds or rash Neuro Neurology: Positive for weakness and headache(s) (pounding); no frequent falls, abnormal hearing, abnormal walking, numbness, tingling, abnormal speech, dizziness or memory loss Psych Psychiatric: Positive for change in appetite (lack of), No memory loss, No anxiety, No depression, No Thoughts of harming yourself/Others Endo Endocrine: Positive for fatigue; no excessive sweating, cold intolerance, increased thirst/drinking, heat intolerance, flushing or increased hunger Aller/Imm Allergy/Immunologic: No wheezing, itchy eyes, hives or seasonal allergy symptoms Theo/Lymp Hematologic/Lymphatic: No easy bleeding, easy bruising or enlarged lymph nodes Exam Const General: cooperative, healthy appearing, no acute distress Nutritional Appearance: well nourished Orientation: alert, awake, oriented x3 Limitations: mental status not altered [facility] Head: normal to inspection, normocephalic, atraumatic Ears: hearing grossly normal bilaterally, TM's normal bilaterally, TM abnormal with fluid behind the TM (Clear) bilaterally Nose: external nose normal, nasal discharge clear bilaterally Face and sinus: sinuses nontender, no sinus tenderness Mouth: oral mucosae normal Teeth and gingiva: dentition normal Throat: posterior oropharynx normal Eyes General: appearance normal, both eyes and all related structures Conjunctivae: conjunctivae normal Sclera: sclerae normal Pupils: PERRL Direct ophthalmoscopy: normal light reflex Neck Neck: normal visual inspection, no lymphadenopathy Carotids: normal carotid upstroke Lymphatic: no lymphadenopathy noted Chest Chest palpation AND inspection: normal inspection of the chest Resp Effort AND Inspection: normal respiratory effort, able to speak in complete sentences, symmetric chest movement Auscultation: Bilateral: Clear to Auscultation Cardio Palpation: normal PMI Rate: regular rate Rhythm: regular rhythm Heart Sounds: S1 normal, S2 normal, no click, no gallops, no murmurs, no rubs Pulses: radial pulses present GI Inspection: normal to inspection Auscultation: normal bowel sounds Palpation: soft, no hepatosplenomegaly, no pulsatile masses, nontender Musc Musculoskeletal: No joint tenderness or muscle weakness Cervical Spine: cervical ROM normal; no cervical spinal tenderness Skin General: no rashes or lesions noted, elasticity normal, turgor normal Lesions: no lesions Rashes: no rashes Neuro General: oriented x3, alert, gait normal Cognition: normal cognition Speech: speech normal Gait: normal gait Motor: muscle tone normal throughout, strength 5/5 throughout Extrem General: normal capillary refill Psych Appearance: grossly normal, well kempt Mental Status: mental status grossly normal Affect: normal affect Speech and Movement: speech and movement normal Attitude: cooperative Thought Process: normal Thought Content: normal Assessment AND Plan Problems 1. Viral upper respiratory tract infection J06.9 2. Nausea AND vomiting R11.2 3. Diarrhea R19.7 Plan Patient symptoms seem viral in nature. Rapid flu negative, patient was advised to take the next 2 days off work, increase fluids, i.e. water, gatorade, increase rest and educated on handwashing. Will treat conservatively at this time. Call in 3 days if not better. Will prescribe Tessalon Perles as needed for cough, Zofran as needed for nausea and vomiting, and Claritin [id number] as directed. Discussed red flag symptoms that would require urgent medical attention. Patient verbalized understanding. Patient to follow-up as previously scheduled or sooner if needed. This note was generated with Handango dictation software. It may contain incorrect words, spelling, and punctuation that were not noted in checking the note before signing. Medications New: Coding Level of Care Code Off vis,est,level 3 Diagnoses Viral upper respiratory tract infection J06.9 URI type: unspecified viral URI Nausea AND vomiting R11.2 Diarrhea R19.7 11/03/17 1139 <Electronically signed by Kain DUKE> Date Kain DUKE Cosigner Signature: Date (if applicable) CC: INTERNAL MEDICINE Observed: 10/14/2017 Status: F Source: [facility] OFFICE VISIT 3:44 PM [facility] [address] [place], [place] [address] OFFICE VISIT Date of Service: 10/13/17 MR#: [id number] Acct: [id number] Name: URIEL KWON Rep #: [id number] : 1995 Provider: Luna Lozada MD Age/Sex: 22/M Location: [facility] Status: Signed Intake Vital Signs10/13/17 Height 6 ft 2 in 10/13/17 Weight: 211 lb 10/13/17 Body Mass Index (BMI) 27.1 10/13/17 Blood Pressure 116/67 Intake Visit Reasons: 6 wk FU Chief Complaint: FU Is patient in pain?: No Allergies No Known Allergies Allergy (Verified 10/13/17 16:06) Medications midodrine 2.5 mg tablet 1.25 mg PO BID #60 tab 09/21/17 [Rx Confirmed 10/13/17] PFSH Medical History Accidental electrocution (Acute) Dizziness (Acute) Acute chest pain (Acute) Syncope (Acute) Back problem (Acute) Family History Grandfather Pancreatic adenocarcinoma Atrial fibrillation, chronic Grandmother Lung cancer Social History Smoking Status: Light Smoker (<10/day) alcohol intake: never substance use type: marijuana what type of physical activity do you participate in: none HPI HPI Chief Complaint: FU Details: URIEL KWON, is a 22yo M who presents to the office today for follow up. He had had persistent dizziness and near syncopal episodes following an accidental electrocution however symptoms have since resolved. He was seen here by Dr. Engel about 2 weeks ago at which point he noted resolution of his symptoms. Resolution has persisted. ROS Const Constitutional: No chills, fatigue, fever(s), frequent falls, malaise, weakness, sleep problems or change in appetite Eyes Eyes: No blurry vision, change in vision, double vision, discharge or visual disturbances ENT ENT: No abnormal hearing, ear pain, ear pressure, tinnitus or dizziness/vertigo Resp Respiratory: No cough, shortness of breath or wheezing Cardio Cardiology: No chest pain at rest, chest pain with exertion, shortness of breath, dyspnea on exertion, generalized swelling, irregular heart rhythm, lightheadedness, orthopnea, fast heart rate or palpitations Gastro GI: No abdominal pain, change in bowel habits, constipation, diarrhea, nausea/dyspepsia or vomiting Genitourinary Male: No difficulty urinating, burning urination, painful urination, urinary incontinence, urinary frequency, urinary urgency, urinary hesitancy, urinary retention, blood in urine, Frequent nighttime urination/ nocturia, sexual problems, testicle lump or testicle pain Musc Musculoskeletal: No joint pain, back pain, joint swelling, limited range of motion, muscle weakness, numbness or tingling Skin Skin: No change in skin color, itching, rash or wounds Breast Breast: No breast lump or breast pain Neuro Neurology: No frequent falls, weakness, abnormal hearing, numbness, tingling, unsteady gait/balance, dizziness, loss of vision, memory loss or visual disturbances Psych Psychiatric: No memory loss, No anxiety, No change in appetite, No depression, No Thoughts of harming yourself/Others Endo Endocrine: No fatigue, heat intolerance, increased thirst/drinking, increased hunger or increased urination Aller/Imm Allergy/Immunologic: No wheezing, itchy eyes or seasonal allergy symptoms Theo/Lymp Hematologic/Lymphatic: No easy bleeding, easy bruising or enlarged lymph nodes Exam Const General: cooperative, no acute distress Orientation: alert, awake, oriented x3 HENMT Head: atraumatic, normocephalic Ears: hearing grossly normal bilaterally Resp Effort AND Inspection: normal respiratory effort, able to speak in complete sentences Auscultation: Bilateral: Clear to Auscultation Cardio Rate: regular rate Rhythm: regular rhythm Heart Sounds: S1 normal, S2 normal GI Palpation: no hepatosplenomegaly, soft Musc Musculoskeletal: No muscle weakness Neuro General: alert, awake, oriented x3, moves all extremities, CN's II-XI intact bilaterally Extrem General: no clubbing, cyanosis or edema Psych Appearance: grossly normal Mood: congruent mood Affect: normal affect Assessment AND Plan Problems 1. Accidental electrocution T75.4XXA 2. Dizziness R42 Plan Symptoms have since resolved and he has done well. Continues on midodrine. Blood pressure is stable at this visit. He was seen a couple weeks ago by Dr. Engel and plan is to taper off midodrine. Follow-up as scheduled with Dr. Engel in November. Advised to call with any concerns. This note was generated with Handango dictation software. It may contain incorrect words, spelling, and punctuation that were not noted in checking the note before signing. Coding Level of Care Code Off vis,est,level 3 Diagnoses Accidental electrocution T75.4XXA Dizziness R42 10/14/17 7323 <Electronically signed by Luna Lozada MD> Date Luna Lozada MD Cosigner Signature: Date (if applicable) CC: INTERNAL MEDICINE Observed: 10/06/2017 Status: F Source: [facility] OFFICE VISIT 9:03 AM [facility] [address] [place], [place] [address] OFFICE VISIT Date of Service: 10/06/17 MR#: [id number] Acct: [id number] Name: URIEL KWON Rep #: [id number] : 1995 Provider: Erika Engel DO Age/Sex: 22/M Location: [facility] Status: Signed Intake Vital Signs10/06/17 Height 6 ft 2 in 10/06/17 Weight: 209 lb 10/06/17 Body Mass Index (BMI) 26.8 10/06/17 Blood Pressure 109/72 Intake Visit Reasons: EST CARE Chief Complaint: Physical Is patient in pain?: No Allergies No Known Allergies Allergy (Verified 10/06/17 08:39) Medications midodrine 2.5 mg tablet 1.25 mg PO BID #60 tab 09/21/17 [Rx Confirmed 10/06/17] PFSH Medical History Accidental electrocution (Acute) Dizziness (Acute) Acute chest pain (Acute) Syncope (Acute) Back problem (Acute) Family History Grandfather Pancreatic adenocarcinoma Atrial fibrillation, chronic Grandmother Lung cancer Social History Smoking Status: Light Smoker (<10/day) alcohol intake: never substance use type: marijuana what type of physical activity do you participate in: none HPI HPI Chief Complaint: Physical Details: URIEL KWON, is a 22 M who presents to the office today for a recheck on an injury that he suffered at work when he being very sweaty plugged into an outlet and received direct shock from the outlet. ROS Const Constitutional: No chills, fatigue, fever(s), frequent falls, malaise, weakness, sleep problems or change in appetite Eyes Eyes: No blurry vision, change in vision, double vision, discharge or visual disturbances ENT ENT: Positive for dizziness/vertigo (Had an episode yesterday. The 1st in a while); no abnormal hearing, ear pain, ear pressure or tinnitus Resp Respiratory: No cough, shortness of breath or wheezing Cardio Cardiology: No chest pain at rest, chest pain with exertion, shortness of breath, dyspnea on exertion, generalized swelling, irregular heart rhythm, lightheadedness, orthopnea, fast heart rate or palpitations Gastro GI: No abdominal pain, change in bowel habits, constipation, diarrhea, nausea/dyspepsia or vomiting Genitourinary Male: No difficulty urinating, burning urination, painful urination, urinary incontinence, urinary frequency, urinary urgency, urinary hesitancy, urinary retention, blood in urine, Frequent nighttime urination/ nocturia, sexual problems, testicle lump or testicle pain Musc Musculoskeletal: No joint pain, back pain, joint swelling, limited range of motion, muscle weakness, numbness or tingling Skin Skin: No change in skin color, itching, rash or wounds Breast Breast: No breast lump or breast pain Neuro Neurology: No frequent falls, weakness, abnormal hearing, numbness, tingling, unsteady gait/balance, dizziness, loss of vision, memory loss or visual disturbances Psych Psychiatric: No memory loss, No anxiety, No change in appetite, No depression, No Thoughts of harming yourself/Others Endo Endocrine: No fatigue, heat intolerance, increased thirst/drinking, increased hunger or increased urination Aller/Imm Allergy/Immunologic: No wheezing, itchy eyes or seasonal allergy symptoms Theo/Lymp Hematologic/Lymphatic: No easy bleeding, easy bruising or enlarged lymph nodes Exam Const General: cooperative, healthy appearing Nutritional Appearance: average body habitus Orientation: oriented x3 Resp Effort AND Inspection: normal respiratory effort Auscultation: Bilateral: Clear to Auscultation Cardio Rate: bradycardic Rhythm: regular rhythm Musc Musculoskeletal: No muscle weakness Skin General: no rashes or lesions noted Wounds: no wounds Neuro General: oriented x3, normal light touch, pain and propioception, moves all extremities, CN's II-XI intact bilaterally, normal sensation to monofilament Cranial Nerves: facial strength normal Cognition: normal cognition Speech: speech normal Gait: normal gait Motor: muscle tone normal throughout Sensory Exam: no sensory deficits noted Coordination: [id number] test normal, tandem gait normal Assessment AND Plan Problems 1. Accidental electrocution T75.4XXA 2. Syncope, unspecified syncope type R55 Plan This patient suffered an electrical injury and has had trouble with syncope and feeling very poorly. Over the last 2 weeks however he feels that he is almost recovered 100% he is only had one slight syncopal episode and he is regained his strength and really has very few complaints at this time. We discussed continued the Midodrine, and I think that will be a good idea until he is rechecked in our office on his regularly scheduled recheck appointment in November. At that time I feel dose can be reduced and then discontinued. Coding Level of Care Code Off vis,est,level 3 Diagnoses Accidental electrocution T75.4XXA Syncope, unspecified syncope type R55 Syncope type: unspecified 10/06/17 0903 <Electronically signed by Erika Engel DO> Date Erika Engel DO Cosigner Signature: Date (if applicable) CC: CARDIOLOGY VISIT Observed: 09/27/2017 Status: F Source: [facility] REPORT 9:44 AM [facility] [address] [place] [address]. [address] [place], [place] [address] OFFICE VISIT Date of Service: 08/31/17 MR#: [id number] Acct: [id number] Name: URIEL KWON Rep #: [id number] : 1995 Provider: Paulo Grace MD Age/Sex: 22/M Location: [facility] [place] [place] Status: Signed HPI HPI Details: URIEL KWON, is a 22 M who presents to the office today for Intake Vital Signs08/31/17 Height 6 ft 2 in 08/31/17 Weight: 207 lb 08/31/17 Body Mass Index (BMI) 26.6 08/31/17 Blood Pressure 90/52 Intake Visit Reasons: 4-6 WK S/P [facility] [employer] Required: No Accompanied by: Friend Is patient in pain?: No Allergies No Known Allergies Allergy (Verified 09/21/17 10:04) Medications midodrine 2.5 mg tablet 1.25 mg PO BID #60 tab 09/21/17 [Rx Confirmed 09/21/17] [facility] Medical History Accidental electrocution (Acute) Dizziness (Acute) Acute chest pain (Acute) Syncope (Acute) Back problem (Acute) Family History Grandfather Pancreatic adenocarcinoma Atrial fibrillation, chronic Grandmother Lung cancer Social History Smoking Status: Light Smoker (<10/day) alcohol intake: never substance use type: marijuana what type of physical activity do you participate in: none ROS Const Const: Positive for other (Passed out last while in [place]. S/P acc. electrocution); negative for fatigue, weakness, body ache, fever(s), headache(s), chills, frequent falls, night sweats, daytime sleepiness, difficulty sleeping, excessive sweating, weight gain, weight loss, increased appetite, poor appetite or anorexia Eyes Eyes: Negative for blind spots, loss of peripheral vision, transient loss of vision, blurry vision, change in vision, double vision, floaters, tunnel vision or other ENT ENT: Negative for headache(s), dizziness, hearing loss, tinnitus, Nosebleed/epistaxis, balance problems, post nasal drip, lip swelling, tongue swelling, bleeding gums, hoarseness, neck pain, dry mouth or other Cardio Chest Pain: No Palpitations: No Edema: None Muscle aches with walking: None Resp Respiratory: Positive for SOB with activity; negative for SOB at rest, SOB orthopnea\SOB lying down, Coughing up blood/hemoptysis, chest congestion, pain on inspiration, snoring, stridor, wheezing, crackles, paroxysmal nocturnal dyspnea or other GI GI: Negative nausea, vomiting, heartburn, constipation, belching, bloating, cramping, vomiting blood/hematemesis, bright, red blood in stools, black,tarry stools, loose stools, Difficulty Swallowing or other : Negative for hematuria, frequent nighttime urination/ nocturia, erectile dysfunction or abnormal vaginal bleeding Musc Musc: Negative for balance problems, muscle aches/ myalgia, muscle weakness or joint pain Skin Skin: Negative redness, non-healing lesions, rash, unusual bruising, skin ulcer, wounds, jaundice or other Neuro Neuro: Negative for weakness, headache(s), frequent falls, blurry vision, double vision, dizziness, lightheadedness, near syncope, syncope, orthostatic symptoms, confusion, memory loss, restless legs, vertigo, seizures, lack of coordination or other Theo Hematologic/Lymphatic: Negative for easy bleeding, easy bruising, enlarged lymph nodes or other Endo Endo: Negative for fatigue, excessive sweating, cold intolerance, heat intolerance, flushing, increased thirst/drinking, increased hunger, hair loss, hair growth or other Psych Psych: Negative for anxiety, depression, thoughts of harming anyone, thoughts of harming yourself, visual hallucinations, panic attacks or audible hallucinations Allergy Allergy/Immunology: Negative for lip swelling, Negative for tongue swelling, Negative for rash, Negative for throat swelling, Negative for hives Assessment AND Plan Orders Orders: Referrals: Medications New: Plan Detail Follow Up +3 months (Nasim) +2 weeks (BP CHECK) Coding Level of Care Code Off vis,new,level 4 Coding Level of Care Code Off vis,new,level 4 09/27/17 0944 <Electronically signed by Paulo Grace MD> Date Paulo Grace MD Cosigner Signature: Date (if applicable) CC: INTERNAL MEDICINE Observed: 09/21/2017 Status: F Source: [facility] OFFICE VISIT 11:45 AM [facility] [address] [place] [address] [address] [place] [address] OFFICE VISIT Date of Service: 09/21/17 MR#: [id number] Acct: [id number] Name: URIEL KWON Rep #: [id number] : 1995 Provider: Kain Arora NP Age/Sex: 22/M [place] [facility] Status: Signed Intake Vital Signs09/21/17 Height 6 ft 2 in 09/21/17 Weight: 205 lb 09/21/17 Body Mass Index (BMI) 26.3 09/21/17 Blood Pressure 110/70 Intake Visit Reasons: collapsed at work/temp loss of vision Chief Complaint: Lost vision AND fell to knees Is patient in pain?: No Allergies No Known Allergies Allergy (Verified 09/21/17 10:04) Medications midodrine 2.5 mg tablet 1.25 mg PO BID #60 tab 09/21/17 [Rx Confirmed 09/21/17] PFSH Medical History Accidental electrocution (Acute) Dizziness (Acute) Acute chest pain (Acute) Syncope (Acute) Back problem (Acute) Family History Grandfather Pancreatic adenocarcinoma Atrial fibrillation, chronic Grandmother Lung cancer Social History Smoking Status: Light Smoker (<10/day) alcohol intake: never substance use type: marijuana what type of physical activity do you participate in: none HPI HPI Chief Complaint: Lost vision AND fell to knees Details: URIEL KWON, is a 22 M who presents to the office today for an acute visit. He has a past medical history of accidental electrocution at work and July 2017 and has been worked up by cardiology since. He does have a pending referral to neurology as well. The patient states that he was released back to work by cardiology last week after a stress echo was done which was negative. He states that yesterday morning he noticed an increase in weakness and fatigue and developed a headache. He took Advil which made it better. He stated that this morning he noted weakness as well and had hot and cold flashes after taking his midodrine medication. He then states that he had visual disturbances where he felt like he had tunnel vision and became lightheaded/dizzy and fell to his knees. He had no loss of consciousness. He denies any fever, worsening shortness of breath, or lower extremity edema at this time. He denies any chest pain at this time. 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 ROS Const Constitutional: Positive for weakness; no chills, fatigue, fever(s), frequent falls, malaise, sleep problems or change in appetite Eyes Eyes: No blurry vision, change in vision, double vision, discharge or visual disturbances ENT ENT: No abnormal hearing, ear pain, ear pressure, tinnitus or dizziness/vertigo Resp Respiratory: No cough, shortness of breath or wheezing Cardio Cardiology: Positive for dyspnea on exertion; no chest pain at rest, chest pain with exertion, shortness of breath, generalized swelling, irregular heart rhythm, lightheadedness, orthopnea, fast heart rate or palpitations Gastro GI: Positive for abdominal pain, nausea/dyspepsia and vomiting (Dry Heaves); no change in bowel habits, constipation or diarrhea Genitourinary Male: No difficulty urinating, burning urination, painful urination, urinary incontinence, urinary frequency, urinary urgency, urinary hesitancy, urinary retention, blood in urine, Frequent nighttime urination/ nocturia, sexual problems, testicle lump or testicle pain Musc Musculoskeletal: No joint pain, back pain, joint swelling, limited range of motion, muscle weakness, numbness or tingling Skin Skin: No change in skin color, itching, rash or wounds Breast Breast: No breast lump or breast pain Neuro Neurology: Positive for weakness, dizziness and loss of vision; no frequent falls, abnormal hearing, numbness, tingling, unsteady gait/balance, memory loss or visual disturbances Psych Psychiatric: No memory loss, No anxiety, No change in appetite, No depression, No Thoughts of harming yourself/Others Endo Endocrine: No fatigue, heat intolerance, increased thirst/drinking, increased hunger or increased urination Aller/Imm Allergy/Immunologic: No wheezing, itchy eyes or seasonal allergy symptoms Theo/Lymp Hematologic/Lymphatic: No easy bleeding, easy bruising or enlarged lymph nodes Exam Const General: cooperative, comfortable, no acute distress Nutritional Appearance: average body habitus, well nourished Orientation: alert, oriented x3 Limitations: mental status not altered HENMT Head: normal to inspection Ears: hearing grossly normal bilaterally Nose: external nose normal Eyes General: appearance normal, both eyes and all related structures Resp Effort AND Inspection: normal respiratory effort, able to speak in complete sentences, normal respiratory pattern, symmetric chest movement, no audible wheezes, no cough Auscultation: Bilateral: Clear to Auscultation Cardio Palpation: normal PMI Rate: regular rate Heart Sounds: S1 normal, S2 normal, normal S1 and S2, no click, no gallops, no murmurs, no rubs Musc Musculoskeletal: No muscle weakness Neuro General: alert, awake, oriented x3, CN's II-XI intact bilaterally Speech: speech normal Gait: normal gait Motor: muscle tone normal throughout Extrem General: normal to inspection, normal gait, no edema, no pedal edema Psych Appearance: grossly normal Mental Status: mental status grossly normal Affect: normal affect Attitude: cooperative Thought Process: normal Assessment AND Plan Problems 1. Accidental electrocution T75.4XXA 2. Dizziness R42 3. Syncope, unspecified syncope type R55 Plan The patient does not seem to have any secondary causes causing his symptoms at this time. He states that all of his symptoms started after he was electrocuted at work in July 2017. He has been seen by cardiology and a recent stress echo was negative. Patient was released back to work last week. He does relate some of the symptoms as occurring after taking the midodrine. Orthostatic vital signs were negative in the office 118/62 lying, 100/52 sitting, 100/60 standing. Will decrease his midodrine to 1.25 mg twice daily. Instructed patient that his work restrictions should not allow him to operate heavy machinery or do heavy lifting until his symptoms resolved. Reviewed previous cardiology note and patient was referred to neurology, a new referral to neurology was placed to ensure continuity of care as patient states he has not followed up yet. Will continue to follow-up with cardiology and neurology. It should be noted that there was some confusion regarding whether or not his case is [facility]. Records from billing were requested and showed that the patient had dismissed the claim is [facility] and that [facility] will not be paying for the visits. However per patient he states that he recently filled out an appeal to [facility]. Orders Referrals: Medications Changed: Plan Detail Additional Comments Discussed patient plan of care with Dr. Lozada Follow Up As previously scheduled or sooner Coding Level of Care Code Off vis,est,level 3 Diagnoses Accidental electrocution T75.4XXA Dizziness R42 Syncope, unspecified syncope type R55 Syncope type: unspecified 09/21/17 1145 <Electronically signed by Kain DUKE> Date Kain DUKE Cosigner Signature: Date (if applicable) CC: STRESS TEST ECHO W/O Observed: 09/10/2017 Status: F Source: [place] CONTRAST 4:47 PM [facility] REPOSITORY [facility] Cardi[facility] Services [address] [place] [address] Stress Test Echo w/o Contrast MR#: [id number] Acct: [id number] Name: URIEL KWON Rep #: [id number] : 1995 22 From: Paulo Grace MD Primary Care: Erika Engel DO Status: REG CLI Ordering Dr: Paulo Grace MD Sex: M C Reason For Study: Syncope; Chest Pain Stress Results Protocol: Jared Protocol Maximum Predicted HR: 198 bpm Target HR: 168 bpm% Max imum Predicted HR: 86 % DurationHeart Rate Stage (mm:ss) (bpm) BPCom ment Baseline 52 118/78 No Chest Pain Jared Protocol Stage I 3:00 10 8 124/72No Chest Pain Jared Protocol Stage II 3:00 13 7 142/70No Chest Pain Jared Protocol Stage III 3:00 14 8 138/74No Chest Pain; Mild Dyspnea Jared Protocol Stage IV 3:00 17 1 150/76No Chest Pain; Moderate Dyspnea Recovery 85 110/62 No Chest Pain Stress Duration: 12:00 mm:ss Maximum Stress HR: 171 bpmME TS: 13 Baseline Echocardiogram Findings The estimated ejection fraction is 65 %. Normal size and thickness. Concentric left ventricular hypertrophy. Normal systolic function. Normal left atrium. Normal right atrium. Normal atrial septum. The mitral valve is structurally normal. No prolapse or stenosis seen. Stress Echo Wall motion Data Resting WMIntermediate WMStress WM Resting Wall Motion No regional wall motion abnormalities noted. EKG Data The baseline ECG demonstrates normal sinus rhythm with at rate of _ beats per minute. The patient exercised according to the regular Jared protocol for a total duration of 12:00. The maximum heart rate attained was 173 beats per minute. This was 87% of maximum predicted heart rate. The patient exercised into stage 5 of the Jared protocol. During stress, there were no ST or T wave changes noted to suggest ischemia. Interpretation Summary The estimated ejection fraction is 65 %. Normal, adequate, treadmill echocardiogram. Negative for ischemia by EKG and echocardiographic criteria. No anginal symptoms noted. Appropriate blood pressure response to exercise. Average exercise capacity for age. Rare PACs and PVCs noted during exercise. Final LVEF is 75%. Ordering Physician: Paulo Grace Referring Physician: Paulo Grace MD Performed By: Natalie Salomon RDCS 09/10/17 1647 Date Paulo Grace MD CC: Paulo Grace MD; Erika Engel DO Date Dictated: 09/08/17 1253 Date Transcribed: 09/10/171646 [place] Code Enforcement Officer: Signed INTERNAL MEDICINE Observed: 09/01/2017 Status: F Source: [facility]ER OFFICE VISIT 10:52 AM [facility] Internal Medicine [facility] [place] [address] OFFICE VISIT Date of Service: 09/01/17 MR#: [id number] Acct: [id number] Name: URIEL KWON Rep #: [id number] : 1995 Provider: Kain Arora NP Age/Sex: 22/M Location: [facility] Status: Signed Intake Vital Signs09/01/17 Height 6 ft 2 in 09/01/17 Weight: 202 lb Intake Visit Reasons: 2 wk fu Chief Complaint: 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 by: Self Is patient in pain?: No Allergies No Known Allergies Allergy (Verified 09/01/17 08:47) Medications midodrine 2.5 mg tablet 2.5 mg PO BID #60 tab 08/31/17 [Rx Confirmed 09/01/17] PFSH Medical History Accidental electrocution (Acute) Dizziness (Acute) Acute chest pain (Acute) Syncope (Acute) Back problem (Acute) Family History Grandfather Pancreatic adenocarcinoma Atrial fibrillation, chronic Grandmother Lung cancer Social History Smoking Status: Light Smoker (<10/day) alcohol intake: never substance use type: marijuana what type of physical activity do you participate in: none HPI HPI Chief Complaint: Routine f/u Details: URIEL KWON, is a 22 M who presents to the office today for a routine follow-up of his electrocution while at work. He has a past medical history as listed above. The patient notes that since his electrocution at work and after his hospital stay, he initially started feeling better, however his symptoms of dizziness and syncopal episodes did start to return. He also describes an intermittent and random shortness of breath that he experiences. He brings up a syncopal episode that occurred last while he was on vacation after he was exposed to the heat. He does note that he was seen by cardiology yesterday and due to his low blood pressure readings and syncopal episodes, he was placed on midodrine and a stress echo was ordered as well. He also states that the nuclear medicine chief technologist referred him to neurology as well which a consult is pending at this time. His blood pressure is currently 130/81 in the office and he denies any dizziness or lightheadedness at this time. As stated previously, he does bring up intermittent shortness of breath that is nonexertional that was because directly after the electrocution. A previous Holter monitor showed bradycardia as well. He otherwise denies any fever, chills, nausea, vomiting, chest pain or pressure, palpitations, or lower extremity edema. He does note that he is written off work until September 13, 2017. ROS Const Constitutional: No anorexia, body ache, chills, fever(s), frequent falls, headache(s), decreased energy, malaise, night sweats, weakness, weight change, sleep problems, other, snoring, abnormal sleep pattern, change in appetite, excessive sweating or fatigue Eyes Eyes: No blurry vision, change in vision, double vision, discharge, dry eyes, bulging eyes, floaters, visual disturbances, eye pain, light sensitivity, spots in vision, tunnel vision or other ENT ENT: No headache(s) or other Resp Respiratory: Positive for shortness of breath sob: SOB at rest, SOB with activity; no cough, change in phlegm color, chest congestion, excessive phlegm production, hemoptysis, pain on inspiration, pain with cough, snoring, stridor, wheezing or other Cardio Cardiology: Positive for shortness of breath; no chest pain at rest, chest pain with exertion, leg pain with exertion, dyspnea on exertion, generalized swelling, irregular heart rhythm, lightheadedness, orthopnea, radiating jaw, neck or arm pain, fast heart rate, slow heart rate, palpitations, other or excessive sweating Neuro Neurology: No visual disturbances, frequent falls, headache(s), weakness, behavioral changes, confusion or memory loss Psych Psychiatric: No abnormal sleep pattern, No lack of enjoyment, No anxiety, No behavioral changes, No change in appetite, No confusion, No depression, No difficulty concentrating, No hopelessness, No irritability, No memory loss, No mood swings, No panic attacks, No paranoia, No Thoughts of harming yourself/Others, No hallucinations, No other Endo Endocrine: No change in body appearance, cold intolerance, excessive sweating, fatigue, flushing, heat intolerance, increased thirst/drinking, increased hunger, increased urination or other Aller/Imm Allergy/Immunologic: No wheezing Exam Const General: cooperative, no acute distress Orientation: alert, awake, oriented x3 HENMT Head: atraumatic, normocephalic Ears: hearing grossly normal bilaterally Eyes Pupils: PERRL, normal by confrontation Resp Effort AND Inspection: normal respiratory effort, able to speak in complete sentences Auscultation: Bilateral: Clear to Auscultation Cardio Rate: regular rate Rhythm: regular rhythm Heart Sounds: S1 normal, S2 normal GI Palpation: soft, no hepatosplenomegaly Neuro General: alert, awake, oriented x3, moves all extremities, CN's II-XI intact bilaterally Other: No Nystagmus. Extrem General: no clubbing, cyanosis or edema Psych Appearance: grossly normal Mood: congruent mood Affect: normal affect Assessment AND Plan 1. Syncope, unspecified syncope type R55 Plan Deferred to cardiology, pending neurology consult, pending stress echocardiogram. Patient was recently started on midodrine and his blood pressure in office is 130/81. He denies any significant dizziness, lightheadedness, or presyncopal episodes at this time. His only complaint is intermittent shortness of breath that occurred after his electrocution. Will await cardiac testing and neurology at this time. No changes to current plan of care. He will continue to remain off work this time. 2. Accidental electrocution T75.4XXA Plan Plan as above 3. Dyspnea R06.00 Plan Patient's dyspnea is intermittent and and nonexertional. This has occurred only after his electrocution. May be post electrocution syndrome, will await cardiac testing and neurology consult. Dragon disclaimer Plan Detail Additional Comments Discussed red flag symptoms requiring urgent medical attention. Follow Up 6 weeks or sooner if needed Coding Level of Care Code Off vis,est,level 3 Diagnoses Syncope, unspecified syncope type R55 Syncope type: unspecified Accidental electrocution T75.4XXA Dyspnea R06.00 09/01/17 1052 <Electronically signed by Kain DUKE> Date Kain DUKE Cosigner Signature: Date (if applicable) CC: CARDIOLOGY VISIT Observed: 08/31/2017 Status: F Source: [place] REPORT 11:41 AM [facility] REPOSITORY [facility] [address] [place] [address] 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 Patient got off his toe motor and went to plug in a portable fan and an outlet that was apparently demonstrating unsecured wires, and as he plugged in the fan, he became shocked with 110 V of AC current. From what the patient can tell he was attached to the circuit for at least 30-60 seconds, until a coworker was able to knock away the plug out of his hand which broke the circuit. Patient felt bilateral hand pain although he had no pritchard, as well as overall fatigue. The patient continued to work and did not seek medical attention. Over the following few days, he had had progressively worsening fatigue, and chest pain when he bends forward. In addition he has had evidence of lightheadedness and dizziness, and sought medical attention in the [facility] ER on . While he was ambulating to the exam room he had a syncopal episode and spontaneously recovered. His EKG showed normal sinus rhythm, leftward axis, no acute changes. Normal intervals, no previous myocardial infarction. A CTA of his chest was negative. EKG showed normal sinus rhythm with no acute changes. Troponins were negative. At bedtime CRP and sed rate were all negative. Overnight the patient's telemetry showed normal sinus rhythm with episodes of sinus bradycardia at a rate of 38 bpm. In addition the patient develops midsternal chest pain with talking, and sitting forward. He denies any shortness of breath, fatigue, previous symptoms prior to his electrical shock, alcohol or [id number] drug use. He has had no syncopal episodes prior to this event. Patient was subsequently discharged home and underwent a 30 day event monitor. While he was on the event monitor on 07/31/17 at 07 50 5 in the morning he had a sinus bradycardia with a heart rate of 38 bpm followed on 08/01/17 at 120 8 in the afternoon a sinus bradycardia at 54 bpm, and on 08/14/17 at 1740 he had sinus bradycardia 55 bpm. While the patient was in the [facility] vacationing, he did quite well on the beach however about a week ago he believes on 08/26/17 he and his family went to a local aquarium and he felt unwell in the aquarium. He went out to his car and sat down at which time he apparently had a syncopal event. We do not have any recordings from that day however we do have one from 08/25/17 at 2:30 in the afternoon which showed normal sinus rhythm. In addition he went to move furniture for his grandmother the other day and was completely exhausted after just moving to couches. He is currently off of work. It is important to note that prior to his electrocution the patient has had absolutely no problems with bradycardia, presyncope, syncope, or seizure- like activity. In our office today's blood pressure is 90/52, and pulse is 68 and regular. He is on no antihypertensive medications. His physical exam is as below. EKG is as above. TSH is normal. Intake Vital Signs08/31/17 Height 6 ft 2 in 08/31/17 Weight: 207 lb 08/31/17 Body Mass Index (BMI) 26.6 08/31/17 Blood Pressure 90/52 Intake Visit Reasons: 4-6 WK S/P [facility] PCU Allergies No Known Allergies Allergy (Verified 08/27/17 08:45) Medications midodrine 2.5 mg tablet 2.5 mg PO BID #60 tab 08/31/17 [Rx Confirmed 08/31/17] [facility] Medical History Accidental electrocution (Acute) Dizziness (Acute) Acute chest pain (Acute) Syncope (Acute) Back problem (Acute) Family History Grandfather Pancreatic adenocarcinoma Atrial fibrillation, chronic Grandmother Lung cancer Social History Smoking Status: Light Smoker (<10/day) alcohol intake: never substance use type: marijuana what type of physical activity do you participate in: none Assessment AND Plan 1. Syncope, unspecified syncope type R55 Plan 1. Syncope: Patient has had several episodes of syncope, all of which have occurred after his electrocution at work about a month ago. He also has hypotension, and episodes of bradycardia noted on telemetry. At this point I recommend the patient undergo a treadmill echocardiogram to evaluate for chronotropic incompetence, as well as ischemia given his history of intermittent chest pain. In addition I recommend starting him on midodrine 2.5 mg p.o. twice daily to augment his blood pressure and hopefully avoid additional syncopal episodes. In addition I recommend the patient undergo an evaluation by a neurologist locally to determine whether he is having seizures that may be contributing to his symptoms and bradycardia since his electrocution. His event monitor to not appear to document any arrhythmias during his syncopal event in the [facility]. At this point would also advised that the patient not go back to work until after his syncopal episodes have been thoroughly investigated. I do not believe he requires a pacemaker at this time unless he has chronotropic incompetence during his stress echocardiogram. Orders Orders: Referrals: 2. Accidental electrocution T75.4XXA Plan 2. Electrocution: It appears all the patient's symptoms have occurred after his electrocution, and therefore appear to be more neurologically related. Again we will refer the patient to neurology. 3. Return office in 3 months. This note was generated using a voice recognition system and there may be incorrect words, spelling or punctuation that were not noted when reviewing the office note prior to saving. Orders Orders: Referrals: Plan Detail Other Orders Orders: Referrals: Other Medications New: Follow Up +3 months (Nasim) Coding Level of Care Code Off vis,est,level 3 Diagnoses Syncope, unspecified syncope type R55 Syncope type: unspecified Accidental electrocution T75.4XXA Coding Level of Care Code Off vis,est,level 3 Diagnoses Syncope, unspecified syncope type R55 Syncope type: unspecified Accidental electrocution T75.4XXA 08/31/17 1141 <Electronically signed by Paulo Grace MD> Date Paulo Grace MD Cosigner Signature: Date (if applicable) CC: INTERNAL MEDICINE Observed: 08/17/2017 Status: F Source: [facility]ER OFFICE VISIT 4:27 PM [facility] Internal Medicine [address] [place] [address] OFFICE VISIT Date of Service: 08/16/17 MR#: [id number] Acct: [id number] Name: URIEL KWON Rep #: [id number] : 1995 Provider: Luna Lozada MD Age/Sex: 22/M Location[place] [facility] Status: Signed Intake Vital Signs08/16/17 Height 6 ft 2 in 08/16/17 Weight: 205 lb 08/16/17 Body Mass Index (BMI) 26.3 08/16/17 Blood Pressure Location Rt brachial 08/16/17 Blood Pressure Position Sitting Intake Visit Reasons: dizziness Chief Complaint: dizziness after returning to work Is patient in pain?: No Allergies No Known Allergies Allergy (Verified 08/03/17 14:13) Medications NK [NK] 07/29/17 [History Confirmed 08/03/17] PFSH Medical History Back problem (Acute) Family History Grandfather Pancreatic adenocarcinoma Grandmother Lung cancer Social History Smoking Status: Light Smoker (<10/day) alcohol intake: never substance use type: marijuana what type of physical activity do you participate in: none HPI HPI Chief Complaint: dizziness after returning to work Details: URIEL KWON, is a 22yo M who presents to the office today due to dizziness. About 3 weeks ago he had an electrocution while at work however did not present to the hospital about 3 days after after a syncopal episode. Imaging done during his last hospital stay were without any significant abnormalities however he was noted to be bradycardic. A Holter monitor was placed and he is scheduled to follow-up with cardiology later on in the month. He however did return to work today and noticed significant dizziness while operating heavy vehicle. He states that dizziness started after he was tossed around vigorously by the heavy vehicle. He denies any loss of consciousness. He still has a 30 day holter on and is scheduled to follow up with Dr. Grace. ROS Const Constitutional: Positive for weakness; no weight change, body ache, chills, fatigue, sleep problems, fever(s), change in appetite, snoring, frequent falls, headache(s) or excessive sweating Eyes Eyes: No change in vision, eye pain or light sensitivity ENT ENT: No headache(s), abnormal hearing, ear pain, tinnitus, nasal congestion, sore throat or neck pain Resp Respiratory: Positive for shortness of breath (intermittent); no snoring, cough or wheezing Cardio Cardiology: No excessive sweating, chest pain at rest, chest pain with exertion, shortness of breath, dyspnea on exertion, palpitations, orthopnea or lightheadedness Gastro GI: No abdominal pain, change in bowel habits, constipation, diarrhea, vomiting, nausea/dyspepsia or cramping Genitourinary Male: No painful urination, urinary incontinence, urinary frequency, urinary urgency, blood in urine, testicle pain or other Musc Musculoskeletal: No neck pain, abnormal walking, joint pain, back pain, limited range of motion, numbness or tingling Skin Skin: No redness, dry skin, itching, lesions, wounds or rash Neuro Neurology: Positive for weakness and dizziness; no frequent falls, headache(s), abnormal hearing, abnormal walking, numbness, tingling, abnormal speech or memory loss Psych Psychiatric: No change in appetite, No memory loss, No anxiety, No depression, No Thoughts of harming yourself/Others Endo Endocrine: No fatigue, excessive sweating, cold intolerance, increased thirst/drinking, heat intolerance, flushing or increased hunger Aller/Imm Allergy/Immunologic: No wheezing, itchy eyes, hives or seasonal allergy symptoms Theo/Lymp Hematologic/Lymphatic: No easy bleeding, easy bruising or enlarged lymph nodes Exam Const General: cooperative, no acute distress Orientation: alert, awake, oriented x3 [facility] Head: atraumatic, normocephalic Ears: hearing grossly normal bilaterally Eyes Pupils: PERRL, normal by confrontation Resp Effort AND Inspection: normal respiratory effort, able to speak in complete sentences Auscultation: Bilateral: Clear to Auscultation Cardio Rate: regular rate Rhythm: regular rhythm Heart Sounds: S1 normal, S2 normal GI Palpation: soft, no hepatosplenomegaly Neuro General: alert, awake, oriented x3, moves all extremities, CN's II-XI intact bilaterally Other: No Nystagmus. Extrem General: no clubbing, cyanosis or edema Psych Appearance: grossly normal Mood: congruent mood Affect: normal affect Assessment AND Plan 1. Dizziness R42 Plan Said to have had a bothersome episode after vigorous movements by his motor vehicle at work. First day back at work since electrocution. Pulse rate 51 in office. Regular. Still has his Holter. 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 Advised to stay off work until follow up with cardiology. Orthostatic, negative.. Increased fluid intake, avoid sedatives and alcohol. Also advised to go to the ER or call the office for any acute/worsening symptoms. This note was generated with BESOSation software. It may contain incorrect words, spelling, and punctuation that were not noted in checking the note before signing. Coding Level of Care Code Off vis,est,level 3 Diagnoses Dizziness R42 08/17/17 1637 <Electronically signed by Luna Lozada MD> Date Luna Lozada MD Cosigner Signature: Date (if applicable) CC: INTERNAL MEDICINE Observed: 08/12/2017 Status: F Source: JENNIFER OFFICE VISIT 9:35 AM [facility] Internal Medicine [address] [place] [address] [address] [place] [address] OFFICE VISIT Date of Service: 08/03/17 MR#: [id number] Acct: [id number] Name: URIEL KWON Rep #: [id number] : 1995 Provider: Kain Arora NP Age/Sex: 22/M Location[place] [facility] Status: Signed Intake Vital Signs08/03/17 Height 6 ft 2 in 08/03/17 Weight: 204 lb 08/03/17 Body Mass Index (BMI) 26.2 08/03/17 Blood Pressure 96/59 Intake Visit Reasons: HOSP F/U ELECTROCUTED Chief Complaint: Hosp F/U - Chest pain, dizziness, palpitations Is patient in pain?: No Allergies No Known Allergies Allergy (Verified 08/03/17 14:13) Medications NK [NK] 07/29/17 [History Confirmed 08/03/17] [facility] Medical History Back problem (Acute) Family History Grandfather Pancreatic adenocarcinoma Grandmother Lung cancer Social History Smoking Status: Light Smoker (<10/day) alcohol intake: never substance use type: marijuana what type of physical activity do you participate in: none HPI HPI Chief Complaint: Hosp F/U - Chest pain, dizziness, palpitations Details: URIEL KWON, is a 22 M who presents to the office today for a hospital follow-up. He has a past medical history as listed above. The patient presented to [facility] emergency department of 07/29/2017 after accidental electrocution while at work 3 days prior while using a plug, apparently he held on for approximately 1 minute prior to a coworker pulling him away. He denied any loss of consciousness at that time. However he had complaints of chest discomfort and intermittent shortness of breath dizziness and diaphoresis and did have a syncopal event on the day he presented to the emergency department. He was admitted to PCU for monitoring and lab work was done which was unremarkable and telemetry demonstrated bradycardia. Echocardiogram was done which was within normal limits and patient was discharged home on a 30 day Holter monitor to follow-up with cardiology. Since being discharged from the hospital, the patient states that he has only had one episode of dizziness this past Wednesday and has had intermittent shortness of breath, however the chest pain and palpitations has resolved entirely. He states that overall his symptoms are gradually improving each day. He is wearing his Holter monitor appropriately. He denies any acute complaints at this time, though does state that due to some of his residual symptoms he would like to be excused from work for the rest of this week. He otherwise denies any fever, chills, nausea, vomiting, increasing shortness of breath, chest pain or pressure, syncope or near syncopal episodes. ROS Const Constitutional: No chills, fatigue, fever(s), frequent falls, malaise, weakness, sleep problems or change in appetite Eyes Eyes: No blurry vision, change in vision, double vision, discharge or visual disturbances ENT ENT: No abnormal hearing, ear pain, ear pressure, tinnitus or dizziness/vertigo Resp Respiratory: No cough, shortness of breath or wheezing Cardio Cardiology: No chest pain at rest, chest pain with exertion, shortness of breath, generalized swelling, irregular heart rhythm, lightheadedness, orthopnea, fast heart rate or palpitations Gastro GI: No abdominal pain, change in bowel habits, constipation, diarrhea, nausea/dyspepsia or vomiting Genitourinary Male: No difficulty urinating, burning urination, painful urination, urinary incontinence, urinary frequency, urinary urgency, urinary hesitancy, urinary retention, blood in urine, Frequent nighttime urination/ nocturia, sexual problems, testicle lump or testicle pain Musc Musculoskeletal: Positive for back pain; no joint pain, joint swelling, limited range of motion, muscle weakness, numbness or tingling Skin Skin: No change in skin color, itching, rash or wounds Breast Breast: No breast lump or breast pain Neuro Neurology: No frequent falls, weakness, abnormal hearing, numbness, tingling, unsteady gait/balance, dizziness, loss of vision, memory loss or visual disturbances Psych Psychiatric: No memory loss, No anxiety, No change in appetite, No depression, No Thoughts of harming yourself/Others Endo Endocrine: No fatigue, heat intolerance, increased thirst/drinking, increased hunger or increased urination Aller/Imm Allergy/Immunologic: No wheezing, itchy eyes or seasonal allergy symptoms Theo/Lymp Hematologic/Lymphatic: No easy bleeding, easy bruising or enlarged lymph nodes Exam Const General: cooperative, comfortable, no acute distress Nutritional Appearance: average body habitus, well nourished Orientation: alert, oriented x3 Limitations: mental status not altered [facility] Head: normal to inspection Ears: hearing grossly normal bilaterally, other (r TM blocked by cerumen, after irrigation visualized and intact b/l), TM's normal bilaterally Nose: external nose normal Eyes General: appearance normal, both eyes and all related structures Resp Effort AND Inspection: normal respiratory effort, able to speak in complete sentences, normal respiratory pattern, symmetric chest movement, no audible wheezes, no cough Auscultation: Bilateral: Clear to Auscultation Cardio Palpation: normal PMI Rate: regular rate Heart Sounds: S1 normal, S2 normal, normal S1 and S2, no click, no gallops, no murmurs, no rubs Musc Musculoskeletal: No muscle weakness Skin General: no rashes or lesions noted, elasticity normal, turgor normal Lesions: no lesions Rashes: no rashes Neuro General: alert, awake, oriented x3, CN's II-XI intact bilaterally Speech: speech normal Gait: normal gait Motor: muscle tone normal throughout Extrem General: normal to inspection, normal gait, no edema, no pedal edema Psych Appearance: grossly normal Mental Status: mental status grossly normal Affect: normal affect Attitude: cooperative Thought Process: normal Office Procedures Cerumen Removal Procedure BMS Cerumen Removal Procedure Procedure performed by: macy bundy Method of removal: irrigation From which ear canal was the cerumen removed: right Amount of Cerumen: moderate Patient tolerated procedure: well Complications: none Assessment AND Plan Problems 1. Syncope, unspecified syncope type R55 2. Acute chest pain R07.9 3. Electrocution T75.4XXA 4. Right ear impacted cerumen H61.21 Plan The patient states that his symptoms are gradually improving each day since being discharged from the hospital. He now denies any chest discomfort or palpitations at this time. He will continue wearing his Holter monitor and will continue with his follow-up with cardiology. He did have one episode of dizziness this previous Wednesday, however has not had any since. Did discuss the importance of staying well-hydrated given the fact that his blood pressure remains on the low side. He is getting intermittent shortness of breath, however this is gradually improving each day as well. We will continue to monitor. Patient to follow-up with our office in 4-6 weeks or sooner if needed. Discussed red flag symptoms that require urgent medical attention. Patient verbalized understanding. Patient was advised on the use of Debrox for cerumen impactions, see procedure note for cerumen irrigation. Patient tolerated well. Dragon disclaimer Plan Detail Follow Up 4-6 weeks or sooner Coding Level of Care Code Off vis,est,level 3 Diagnoses Syncope, unspecified syncope type R55 Syncope type: unspecified Acute chest pain R07.9 Electrocution T75.4XXA Right ear impacted cerumen H61.21 08/12/17 0935 <Electronically signed by Kain DUKE> Date Kain DUKE Cosigner Signature: Date (if applicable) CC: 12 LEAD ELECTROCARDIOGRAM Observed: 08/02/2017 Status: F Source: [place] 3:07 PM [facility] REPOSITORY [facility] Cardiovascular Services [address] [place] [address] 12 Lead EKG 07/29/172011 MR#: [id number] Acct: [id number] Name: JACKY KWONMIGUEL ÁNGEL Subramanian Rep #: [id number] : 1995 22 From: Paulo Grace MD Attending Dr: Anahi Bagley Status: DIS SANTIAGO Ordering Dr: Mary Grant MD Date: 07/29/17 Location: [facility] Sex: M C Admitted: 07/29/17 Test Reason : Blood Pressure : / mmHG Vent. Rate : 061 BPM Atrial Rate : 061 BPM P-R Int : 162 ms QRS Dur : 094 ms QT Int : 418 ms P-R-T Axes : 065 -23 042 degrees QTc Int : 420 ms Normal sinus rhythm Normal ECG When compared with ECG of 29-JUL-2017 16:56, MANUAL COMPARISON REQUIRED, DATA IS UNCONFIRMED Confirmed by PAULO GRACE ([id number]), movie editor ANABELLE LOPEZ ([id number]) on 08/02/2017 3:07:35 PM Referred By: Erika Engel Confirmed By:PAULO GRACE 08/02/17 1507 Date Paulo Grace MD CC: Anahi Bagley; Erika Engel DO; Mary Grant M.D. Signed 12 LEAD ELECTROCARDIOGRAM Observed: 08/02/2017 Status: F Source: [place] 10:20 AM [facility] REPOSITORY [facility] Cardiovascular Services [address] [place] [address] 12 Lead EKG 07/29/17 1656 MR#: [id number] Acct: [id number] Name: URIEL KWON Rep #: [id number] : 1995 22 From: Paulo Grace MD Attending Dr: Anahi Bagley Status: DIS SANTIAGO Ordering Dr: Wu Reardon DO Date: 07/29/17 Location: [facility] Sex: M C Admitted: 07/29/17 Test Reason : CP Blood Pressure : / mmHG Vent. Rate : 080 BPM Atrial Rate : 080 BPM P-R Int : 146 ms QRS Dur : 088 ms QT Int : 352 ms P-R-T Axes : 065 -31 044 degrees QTc Int : 405 ms Normal sinus rhythm with sinus arrhythmia Left axis deviation Abnormal ECG Confirmed by PAULO GRACE ([id number]), movie editor ANABELLE LOPEZ ([id number]) on 08/02/2017 10:19:44 AM Referred By: Erika Engel Confirmed By:PAULO GRACE 08/02/17 1019 Date Paulo Grace MD CC: Anahi Bagley; Erika Engel DO; Wu Reardon Signed DISCHARGE SUMMARY Observed: 07/30/2017 Status: F Source: [place] 1:52 PM [facility] REPOSITORY [facility] Medical Records Department [address] [place] [id number] Discharge Summary 07/30/17 1251 MR#: [id number] Acct: [id number] Name: URIEL KWON Rep #: [id number] : 1995 22 From: Jodi Gamez 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 Discharge Diagnoses: (1) Atypical chest pain and Syncopal event with Bradycardia, Unclear Etiology although suspected secondary to Recent Electrical Shock with possible effect on the conduction system (2) Tobacco use (3) Pectus excavatum Discharge Summary: The patient is a 22 y/o M w/ PMHx: Tobacco use, Pectus Excavatum who presents to the [facility] ED on 07/29/17 w/ history of recent accidental electrocution while at work 3 days prior while using plug, noted to be standard 110V line inability to let go for approximately 1 minute requiring coworker to assist in extraction with no loss of conscious numbness at that time; ever, since then ongoing intermittent mid left upper chest discomfort, sharp lasting 30 minutes to 1 hour with approximately 3-4 episodes per day with shortness of breath, dizziness and diaphoresis with onset in addition to syncopal events on day of ED presentation. Patient was admitted to PCU, lab work was unremarkable including normal CRP and sed rate, patient maintained on telemetry with noted bradycardia on telemetry, echocardiogram obtained which was unremarkable with no further near syncopal or syncopal events. Cardiology evaluation was performed with fragmentation for avoidance of beta blockers, meclizine or steroid based medications to avoid further reduction in heart rate or blood pressure. Patient discharged to home in stable condition with Holter monitor in place 30 days per cardiology recommendation with avoidance of working, using heavy machinery, driving 1 week with planned follow-up with PCP in addition to cardiology following Holter monitor testing and less acute symptoms arise. Discharge Time: > 35 Minutes DAY OF DISCHARGE PROGRESS NOTE: Subjective: Patient without acute event overnight per self and nursing report. Patient denies any further acute chest discomfort, dyspnea, diaphoresis or near syncopal/syncopal symptoms. Patient denies fever, chills, nausea, emesis, abdominal pain or dyspnea. Patient agreeable to discharge to home with Holter monitor being set up prior to discharge with plan follow-up with both primary care physician and cardiology. Objective: T 98.3, heart rate 66, BP 109/62, respiratory rate 18, 99% on RA. Physical Examination: General: awake, alert, oriented x 3 and cooperative, seated upright in the bed, NAD. Skin: normal color, turgor, no icterus, cyanosis. HEENT: AT/NC, EOMI, PERRLA, MMM. Lungs: CTA bilaterally, moderate effort, mild decrease BL bases, no rales, ronchi or wheezing; Heart: Mildly bradycardic with regular rhythm, pectus excavatum present; no gallop, rub audible. Abdomen: soft, NTTP, ND, normal BS. Extremities: no cyanosis, clubbing, or edema. Neurological: patient awake, alert, oriented x 3; cognitive function appears intact upon questioning,; pupils equally reactive to light and accomodation; cranial nerves II-XII grossly normal, moving all 4 extremities, strength appropriate. Psychiatric: affect appears normal, no acute evidence of depressive or anxiety feelings. Assessment and Plan: Please see hospital summary above. OBSV E AND M: [id number] Observation care discharge 07/30/17 1352 <Electronically signed by Anahi Bagley > Date Anahi Bagley cc: SRIKANTH Gamez; Anahi Bagley; Erika Engel DO * Signed Discharge Date and Diagnosis Date of Admission: 07/29/17 Date of Discharge: 07/30/17 - Primary Discharge Diagnosis Active and Suspected Problems 1. Chest pain 2. Syncope 3. Bradycardia Hospital Course and Treatment Imaging Results: Diagnostic Data Chest X-Ray 07/29/17 17:25 IMPRESSION: Normal x-ray examination of the chest. Electronically Signed: Tono Milligan DO at 18:07 EDT Tel , Service support , Chest CTA 07/29/17 18:40 IMPRESSION: Normal CTA chest examination, without a demonstrated pulmonary embolism or arterial dissection. Pectus excavatum. Electronically Signed: Tono Milligan DO at 19:42 EDT Tel , Service support , Dr. Grace, cardiology Operations: None Procedures: 2-D Echocardiogram Summary of Care Provided: The patient is a 22 year old M admitted 07/29/2017 due to chest pain and syncope. Patient had an accidental electrocution 07/26/2017 while at work. He states he went to put a fan into an outlet and was electrocuted at that time. He was unable to let go for approximately 1 minute. Patient states he has not felt himself since that time. Prior to admission, patient states he began to have intermittent left upper chest pain with associated dizziness, diaphoresis. Patient states he had an episode of syncope while being admitted in the ER. Cardiology evaluated patient. He was noted to have episodes of mild bradycardia on telemetry. Patient will avoid beta-blockers, meclizine or steroid based medications to avoid further reduction in blood pressure and heart rate. He will be discharged on 30 day event monitor to continue monitoring his heart rate. EKG unremarkable. Echocardiogram showed an ejection fraction of 65%, RVSP estimated to be 31 mmHg. Troponin negative. CRP and sed rate negative. Patient will be off work for 1 week as well as no driving or use of heavy machinery for 1 week. Follow-up with primary care physician in 1 week. Follow-up with cardiology in 4-6 weeks unless other new symptoms arise. Patient seen and examined prior to discharge. Alert, oriented, no acute distress. Heart rate regular and rhythm, mild bradycardia with a heart rate of 55. Abdomen soft, nontender. Lungs clear. Neuro grossly intact. Normal affect. Vital signs stable. Patient is stable for discharge home with the follow-up recommendations as noted above. This patient was seen by SRIKANTH Grider under the supervision of Dr. Bagley. Discharge Diet: No Restrictions Discharge Activity: May Not Drive - 1 Week, - - No using heavy machinery for 1 week Call your doctor if you observe: Shortness of breath, Dizziness, Fainting spells, Chest pain, Increased palpitations (irregular heartbeat) Home Medications: Medications to take at Discharge NK [NK] 07/29/17 Other Amb Orders: 30-Day Event Recorder [[facility]] Location: None Selected Primary Care Physician: Erika Engel DO [Primary Care Provider] - Please follow up with your Primary Care Physician in: 1 Week Please Follow Up With: Paulo Grace MD When: 4-6 weeks Disposition: Home Minutes spent on discharge:: 35 Patient Condition:: Stable Medical Necessity - Tobacco Use Smoking Status: Light Smoker (<10/day) Meaningful Use Info Meaningful Use Diagnoses (Choose all that apply): None applicable 07/30/17 1301 <Electronically signed by Jodi DUKE> Date Jodi DUKE 07/30/17 1343<Electronically signed by Anahi Bagley > Cosigner Signature (if applicable): Date Anahi Bagley CC: BURN OUT 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 OPERATOR-C Jodi Gamez; Anahi Bagley; Erika Engel DO Signed DISCHARGE INSTRUCTION Observed: 07/30/2017 Status: F Source: [place] 12:51 PM [facility] REPOSITORY [facility] Medical Records Department [address] [place] [address] Instructions for Home/Discharge Instructions 07/30/17 1248 MR#: [id number] Acct: [id number] Name: URIEL KWON Rep #: [id number] : 1995 22 From: Jodi DUKE PCP: Erika Engel DO Status: ADM SANTIAGO - Discharge Diagnoses Current Active Problems: Current Active and Chronic Problems Acute chest pain (Acute) Syncope (Acute) You will use the following diet at home:: No restrictions Discharge Activity: May Not Drive - 1 Week, - - No using heavy machinery for 1 week Call your doctor if you observe: Shortness of breath, Dizziness, Fainting spells, Chest pain, Increased palpitations (irregular heartbeat) Additional Instructions: Avoid medications that may lower your blood pressure which include beta blockers, meclizine, steroid based medications. Allergies/Adverse Reactions: Allergies No Known Allergies Allergy (Verified 07/29/17 16:57) Medications to take at Discharge NK [NK] 07/29/17 Orders to be completed after discharge: 30-Day Event Recorder [[facility]] Location: None Selected Primary Care Physician: Erika Engel DO [Primary Care Provider] - Please follow up with your Primary Care Physician in: 1 Week Please Follow Up With: Paulo Grace MD When: 4-6 weeks Proposed Discharge Date: 07/30/17 07/30/17 1251 <Electronically signed by Jodi DUKE> Date Jodi DUKE CC: Paulo Grace MD; Erika Engel DO CONSULTATION Observed: 07/30/2017 Status: F Source: [place] 12:21 PM [facility] REPOSITORY [facility] Medical Records Department [address] [place] [address] Consultation 07/30/17 1209 MR#: [id number] Acct: [id number] Name: URIEL KWON Rep #: [id number] : 1995 From: Paulo Grace MD PCP: Erika Engel DO Status: ADM SANTIAGO Y Location: [place] [address] Problem List (1) Acute chest pain Status: Acute (2) Syncope Status: Acute Qualifiers: Syncope type: unspecified Qualified Code(s): R55 - Syncope and collapse Reason for Consult Date of Consultation: 07/30/17 Reason for Consultation: Bradycardia, chest pain, syncope History of Present Illness: The patient is a 22 year old M nondiabetic, lifelong non-smoker, nondrinker, 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 Patient got off his toe motor and went to plug in a portable fan and an outlet that was apparently demonstrating unsecured wires, and as the plug did not became shocked with 110 V of AC current. From what the patient can tell he was attached to the circuit for at least 30-60 seconds, until a coworker was able to knock away the plug out of his hand which broke the circuit. Patient felt bilateral hand pain although he had no pritchard, as well as overall fatigue. The patient continued to work and did not seek medical attention. Over the last few days he has had progressively worsening fatigue, and chest pain when he bends forward. In addition he has had evidence of lightheadedness and dizziness, and sought medical attention in the [facility] ER yesterday evening. While he was ambulating to the exam room he had a syncopal episode and spontaneously recovered. A CTA of his chest was negative. EKG showed normal sinus rhythm with no acute changes. Troponins were negative. At bedtime CRP and sed rate were all negative. Overnight the patient's telemetry showed normal sinus rhythm with episodes of sinus bradycardia at a rate of 38 bpm. In addition the patient develops midsternal chest pain with talking, and sitting forward. He denies any shortness of breath, fatigue, previous symptoms prior to his electrical shock, alcohol or [id number] drug use. He has had no syncopal episodes prior to this event. His orthostatic blood pressures have all been negative. [] Past Medical History Allergies/Adverse Reactions: Allergies No Known Allergies Allergy (Verified 07/29/17 16:57) Home Medications: Ambulatory Orders Medication Instructions Recorded NK [NK] 07/29/17 Surgical History: no surgical history - *Family History Maternal History Items: No pertinent history - Negative for CV history in immediate family., - Smoking Status: Light Smoker (<10/day) Alcohol: Occasional Drugs: None Review of Systems - Review of Systems General: Reports: Fatigue, Malaise. Denies: Fever, Night Sweats Cardiovascular: Reports: Chest Discomfort at Rest, Dizziness, Near Syncope, Syncope. Denies: Chest Discomfort, Shortness of Breath, Orthopnea, PND, Peripheral Edema, Palpitations, Lightheadedness Respiratory: Denies: Cough, Sputum Production, Hemoptysis Gastrointestinal: Denies: Hematemesis, Hematochezia, Melena Genitourinary: Denies: Dysuria, Hematuria Skin: Denies: Rash Subjectve: Patient laying in bed, no acute distress. No chest pain Objective: Vital Signs Temp Pulse Resp BP Pulse Ox 98.3 F 50 L 18 109/62 99 07/30/17 10:09 07/30/17 11:26 07/30/17 10:09 07/30/17 10:09 07/30/17 10:09 Oxygen Delivery Method Room Air Weight: 204 lb 5.896 oz Body Mass Index (BMI) 26.2 Orthostatic Vital Signs Start: 07/29/17 20:20 Freq: q24h Status: Active Protocol: Activity Type Activity Date Activity User E-Sign Co-Sign Detail Recorded Client Recorded Date Recorded By Document 07/30/17 06:15 ZZB [id number] 07/30/17 06:16 ZZB Orthostatic Vitals Standing -Blood Pressure (90/60-120/80) 116/68 -Extremity Use Left Arm -Pulse Rate (60-100) 59 L Sitting -Blood Pressure (90/60-120/80) 122/63 H Intake and Output for Last 24 Hours Intake Total 240 / 240 Balance 240 / 240 07/29/17 20:18: Troponin I < 0.015 07/29/17 23:06: Troponin I < 0.015 07/30/17 05:12: PT 15.0 H, INR 1.2 07/30/17 05:12: Sodium 143, Potassium 3.8, Chloride 111 H, Carbon Dioxide 24.0, Anion Gap 8, BUN 16, Creatinine 0.96, Est GFR (MDRD) Af Amer 125, Est GFR (MDRD) Non-Af 103, BUN/Creatinine Ratio 16.6, Glucose 88, Calcium 8.4 L, Magnesium 2.1 Rhythm: EKG: ECHO: LVEF of 65%, normal RVSP. No pericardial effusion. Stress Test: Cardiac Cath: PCI: CT Surgery: Holter monitor: EPS: PPM: CXR: Chest CT Scan: Assessment/Plan 1. Bradycardia: Patient has episodes of positional lightheadedness, dizziness, and bradycardia on telemetry monitoring. This may be a consequence of the patient's recent electrical shock, which may have affected his electrical conduction system in his heart. In addition he has complained of fatigue, not feeling himself which may be part of the electrical event as well. Patient was shocked with 60 cycle AC current at 120 V, and probably high amperage as well. He was completely asymptomatic prior to this event. I recommended the patient be discharged home on a 30 day event monitor to help document his heart rate as well as to assess his symptoms should he have any more presyncope or syncopal episodes. Would not recommend pacemaker or stress testing at this time. His troponins have been negative his EKG is negative, and his sed rate and at bedtime CRP are negative as well. His echocardiogram shows normal LV function normal pulmonary pressures. I recommended also that he take off work for at least 1 week's time until he fully recovers from his electrical shock. I advised him not to drive or use heavy machinery for at least 1 week's time. Patient will follow-up with me going forward in the office in 4-6 weeks time or sooner if it is medically necessary. I would not recommend beta blockers, meclizine, or steroid based medications to assist with blood pressure at this time. 2. Patient may be discharged home from a cardiac standpoint. Thank you very much for the opportunity to put dissipate in the cardiac care of your patient. Consultation time took place between 1145 am and 12:20 PM. Code Visit Inpatient E AND M: [id number] Init Hosp L2 07/30/17 1221 <Electronically signed by Paulo Grace MD> Date Paulo Grace MD Cosigner Signature (if applicable): Date CC: Paulo Grace MD; Erika Engel DO Signed ECHOCARDIOGRAM COMPLETE Observed: 07/30/2017 Status: F Source: [place] 11:42 AM [facility] REPOSITORY [facility] Cardiovascular Services [address] [place] [address] Echo Complete 07/30/17 0759 MR#: [id number] Acct: [id number] Name: URIEL KWON Rep #: [id number] : 1995 22 From: Paulo Grace MD Attending Dr: Anahi Bagley Status: ADM SANTIAGO Ordering Dr: Mary Grant MD Date: 07/30/17 Location: [facility] Sex: M C Admitted: 07/29/17 Reason For Study: chest pain Procedure This was a 2D Doppler, Color Flow transthoracic echocardiogram. The study was technically difficult. Due to pectus excavatum. Exam performed in department. Left Ventricle Normal size and thickness. The estimated ejection fraction is 65 %. Normal diastology for age. No regional wall motion abnormalities noted. Right Ventricle Normal size and thickness. Normal systolic function. Atria Normal left atrium. Normal right atrium. Normal atrial septum. Mitral Valve The mitral valve is structurally normal. No prolapse or stenosis seen. Trivial mitral valve insufficiency. Tricuspid Valve Normal tricuspid valve. Trivial tricuspid valve insufficiency. Right ventricular systolic pressure estimated to be 31 mmHg. Aortic Valve Trisinus/trileaflet aortic valve. Normal aortic valve. Pulmonic Valve Normal pulmonic valve. Great Vessels Normal aortic root. Normal arch. Normal inferior vena cava. Inferior vena cava collapse with sniff. Pericardium/Pleural No pericardial effusion. MMode/2D Measurements AND Calculations LVIDd: 4.9 cm IVSd: 0.97 cm Ao root diam: 3.0 cm LVIDs: 3.5 cm LVPWd: 1.0 cm LA dimension: 2.8 cm RVDd: 3.5 cm FS: 28.9 % LAV(MOD-sp4): 51.3 ml LA A4 area: 18.0 cm2 Doppler Measurements AND Calculations MV E max macy: 94.1 cm/sec Lat Peak E' Macy: 20.3 cm/sec Med Peak E' Macy: 16.1 cm/sec MV A max macy: 37.8 cm/sec E/E' lat: 4.6 E/E' med: 5.8 MV E/A: 2.5 Ao V2 max: 118.3 cm/sec LV V1 max: 100.0 cm/sec PA V2 max: 90.5 cm/sec Ao max P.6 mmHg LV V1 max P.0 mmHg PI end-d macy: 95.5 cm/sec TR max macy: 256.5 cm/sec TR max P.3 mmHg Interpretation Summary The estimated ejection fraction is 65 %. Normal diastology for age. Trivial mitral valve insufficiency. Trivial tricuspid valve insufficiency. Right ventricular systolic pressure estimated to be 31 mmHg. There is no comparison study available. Ordering Physician: Mary Grant Referring Physician: Erika Engel Performed By: Marguerite Childs RDCS, RVT 07/30/17 1142 Date Paulo Grace MD CC: Anahi Bagley; Erika Engel DO; Mary Grant M.D. Date Dictated: 07/30/17 0759 Date Transcribed: 07/30/171141 [place] Code Enforcement Officer: Signed PROTHROMBIN TIME W/INR Collected: 07/30/2017 Status: F Source: JENN[place]ER 5:12 AM [facility] REPOSITORY TYPE CODE TESTS RESULT OUT OF RANGE REFERENCE UNITS LAB L300.4150 11.7-14.9 SECONDS High PROTIME 15.0 LAB L300.4200 Normal INR 1.2 Performed By: #### L300.3900 #### [facility] [address] [place], [address] BASIC METABOLIC Collected: 07/30/2017 Status: F Source: [place] PROFILE (BMP) 5:12 AM [facility] REPOSITORY TYPE CODE TESTS RESULT OUT OF RANGE REFERENCE UNITS LAB L501.0100 74-106 mg/dL Normal GLU 88 Result Comment: Please note revised GLUCOSE reference range effective 2017. LAB L501.1000 7-18 mg/dL Normal BUN 16 LAB L501.1100 0.70-1.30 mg/dL Normal CREAT,SERUM 0.96 Result Comment: The validity of the calculated GFR AND GFRAA in patients over 70 years has not been determined. Clinical correlation is essential. LAB L501.1110 >60 mL/min Normal EST GFR 103 Result Comment: Non- GFR Calc LAB L501.1115 >60 mL/min Normal EST GFR - AA 125 Result Comment: GFR Calc LAB L501.1255 ml/min Normal Estimated CRCL 140.33 LAB L501.1300 10-20 RATIO BUN/CRE Normal 16.6 LAB L501.2200 8.5-10 mg/dL Low .1 CA 8.4 LAB L501.5300 136-14 mmol/L 5 NA Normal 143 LAB L501.5600 3.5-5. mmol/L 1 K Normal 3.8 LAB L501.5900 98-107 mmol/L High CL 111 LAB L501.6100 21.0-3 mmol/L 2.0 CO2 Normal 24.0 LAB L501.6200 5-15 GAP Normal 8 Performed By: #### L500.2500, L501.5200 #### [facility] [address] [place], [place], [address] MAGNESIUM Collected: 07/30/2017 Status: F Source: [place] 5:12 AM [facility] REPOSITORY TYPE CODE TESTS RESULT OUT OF RANGE REFERENCE UNITS LAB L501.5200 1.6-2.6 mg/dL Normal MG 2.1 Performed By: #### L500.2500, L501.5200 #### [facility] [address] [place], [address] TROPONIN-I Collected: 07/29/2017 Status: F Source: [place] 11:06 PM [facility] REPOSITORY Order Comment: 'TROP' Serial specimen #1, #2 or #3: 3 TYPE CODE TESTS RESULT OUT OF RANGE REFERENCE UNITS LAB L501.4010 <0.045 ng/mL Normal < 0.015 TROPONIN-I Result Comment: TROPONIN-I EXPECTED VALUES <0.045 Negative 0.045 - 0.590 Consistent with Cardiac Damage > OR = 0.600 Critical Value Not every elevated troponin is indicative of MO. These values should be used with clinical judgement in examining the patient's clinical picture for diagnosis. To establish a diagnosis of MO versus myocardial injury, there must be a demonstrated rise and/or fall in the troponin values, in addition to ischemic symptoms, EKG changes, new regional wall motion abnormality, and/or angiographical evidence. PLEASE NOTE: REFERENCE RANGES EDITED 17 Performed By: #### L501.4010 #### [facility] [address] [place], [address] TROPONIN-I Collected: 07/29/2017 Status: F Source: [place] 8:18 PM [facility] REPOSITORY Order Comment: 'TROP' Serial specimen #1, #2 or #3: 2 TYPE CODE TESTS RESULT OUT OF RANGE REFERENCE UNITS LAB L501.4010 <0.045 ng/mL Normal < 0.015 TROPONIN-I Result Comment: TROPONIN-I EXPECTED VALUES <0.045 Negative 0.045 - 0.590 Consistent with Cardiac Damage > OR = 0.600 Critical Value Not every elevated troponin is indicative of MO. These values should be used with clinical judgement in examining the patient's clinical picture for diagnosis. To establish a diagnosis of MO versus myocardial injury, there must be a demonstrated rise and/or fall in the troponin values, in addition to ischemic symptoms, EKG changes, new regional wall motion abnormality, and/or angiographical evidence. PLEASE NOTE: REFERENCE RANGES EDITED 17 Performed By: #### L501.4010 #### [facility] [place], [address] THYROID STIM HORMONE Collected: 07/29/2017 Status: F Source: JENN[place]ER (TSH) 8:18 PM [facility] REPOSITORY TYPE CODE TESTS RESULT OUT OF RANGE REFERENCE UNITS LAB L501.9520 0.358-3.74 uIU/mL Normal TSH 0.70 Performed By: #### L501.9520 #### [facility] [address] [place], [address] HISTORY AND PHYSICAL Observed: 07/29/2017 Status: F Source: [place] EXAM 7:56 PM [facility] REPOSITORY [facility] Medical Records Department [address] [place] [address] [place] [address] History and Physical 07/29/171936 MR#: [id number] Acct: [id number] Name: URIEL KWON FAN Rep #: [id number] : 1995 22 From: Mary Grant MD PCP: Erika Engel, DO Status: ADM SANTIAGO Y Location: [place] [address] Problem List (1) Acute chest pain Status: Acute (2) Syncope Status: Acute Qualifiers: Syncope type: unspecified Qualified Code(s): R55 - Syncope and collapse History of Present Illness Date of Admission: 07/29/17 Chief Complaint: Chest pain / syncope. Patient is a 22 years old WM with no previous medical problems, presents with chest pain and syncope after accidental electrocution at work 3 days ago. He was electrocuted with standard 110 V line, but he was unable to let go for about one minute. His co-worker had to pull him out. He did not lose consciousness at that time. Since then, he has intermittent mid- left upper chest pain with sharp sensation that lasts for 30 minutes to 1 hour. He had 3 to 4 episodes a day. He felt short of breath, dizziness, and diaphoresis with the pain. Today, he was talking on the phone, started to feel dizzy and sweaty suddenly. He felt ill, and nest thing he remembered he was on the floor and disoriented. He did not have prolonged confusion, injury, or incontinence. He has no previous medical problems. EKG showed Left axis deviation, otherwise normal. Troponin was negative. Past Medical History Allergies No Known Allergies Allergy (Verified 07/29/17 16:57) Home Medications: Ambulatory Orders Medication Instructions Recorded NK [NK] 07/29/17 Smoking Status: Light Smoker (<10/day) Alcohol: Occasional Drugs: None - *Family History Maternal History Items: No pertinent history - Negative for CV history in immediate family., - Review of Systems Comment: ROS: In general: Patient has been in good health, denied of any constitutional symptoms, such as weight loss, or gain, fever, chills, or night sweats. Patient denied of any profound fatigue. HEENT: Unremarkable. Patient denied of any dizziness, chronic headache, blurred vision, double vision, dry mouth, or nasal congestion. CV/respiratory: See HPI. GI: Patient denied any abdominal pain, nausea, vomiting, diarrhea, constipation, melena, or hematochezia. : Patient denied any significant urinary symptoms. Neurology: Unremarkable. No focal deficit. There is no history of seizure as an adult. Psychological: Unremarkable. No depressed mood or suicidal ideation. No hallucinations. Endocrine: Unremarkable. Musculoskeletal: Unremarkable. No muscular wasting, chronic musculoskeletal pain, persisting joint pain, or focal muscular weakness. VTE Information - Inpt Only VTE Present on Admission: No VTE Mechan Device Prophylaxis: None VTE Pharm Prophylaxis ordered?: No Reason prophylaxis not ordered:: Treatment Not Indicated Patient Problems: Active and Suspected Problems Acute chest pain (Acute) Syncope (Acute) Objective: In general, patient is a well-nourished and developed adult. HEENT: Head is atraumatic, and normocephalic. Pupils are equal, round, and reactive to light and accommodations. Neck is supple. There is no lymphadenopathy, or thyromegaly. Oral mucosa is pink, and moist. There are no lesions. Heart: Auscultation is normal with regular rhythm and rate. There is no extra heart sounds, or murmurs. S1 and S2 are present. Point of maximal impulse is not displaced. +pectus excavatum. Lungs: Lungs are clear to auscultation bilaterally. There is no wheezing, or crackles. Abdomen: Abdominal wall is non-tender, and non-distended. There is no palpable mass or organomegaly. Normoactive bowel sounds are present. Extremities: There is no cyanosis or clubbing. Peripheral pulses are palpable. There is no edema. Skin: There are no any skin discoloration or lesions. Neurological: CN II - XII are intact. Sensory and motor functions are grossly normal with no obvious deficit. Cerebellar functions are within normal range. Gait was not tested. - Physical Exam Vital Signs Temp Pulse Resp BP Pulse Ox 97.1 F L 72 19 H 121/69 H 97 07/29/17 16:55 07/29/17 17:17 07/29/17 17:17 07/29/17 17:17 07/29/17 17:17 Diagnostic Data Chest X-Ray 07/29/17 17:25 IMPRESSION: Normal x-ray examination of the chest. Electronically Signed: Tono Milligan DO at 18:07 EDT Tel , Service support , Chest CTA 07/29/17 18:40 IMPRESSION: Normal CTA chest examination, without a demonstrated pulmonary embolism or arterial dissection. Pectus excavatum. Electronically Signed: Tono Milligan DO at 19:42 EDT Tel , Service support , Assessment/Plan All Active Problems Acute chest pain (Acute) Syncope (Acute) Patient is a 22 years old WM with no previous medical problems, presents with chest pain and syncope after accidental electrocution at work 3 days ago. He was electrocuted with standard 110 V line, but he was unable to let go for about one minute. His co-worker had to pull him out. He did not lose consciousness at that time. Since then, he has intermittent mid- left upper chest pain with sharp sensation that lasts for 30 minutes to 1 hour. He had 3 to 4 episodes a day. He felt short of breath, dizziness, and diaphoresis with the pain. Today, he was talking on the phone, started to feel dizzy and sweaty suddenly. He felt ill, and next thing he remembered was on the floor and disoriented. He did not have prolonged confusion, injury, or incontinence. He has no previous medical problems. EKG showed Left axis deviation, otherwise normal. Troponin was negative. #1 Chest pain. Etiology is not clear. Possibly due to myocardial injury from electrocution. Unlikely with coronary artery problems. Trend troponin. Echo in AM. Cardiology was contacted from ED. Consult request was placed. #2 Syncope. As above. Telemetry monitoring. Check orthostatic VS. #3 Pectus excavatum. No previous issues. VTE ppx: not indicated. GI ppx: regular consistency meals. He is full code. Disposition: home in 1 to 2 days. Code Visit OBSV E AND M: 85040 Initial observation care L3 07/29/171955 <Electronically signed by Mary Grant MD> Date Mary Grant MD Cosigner Signature: Date (if applicable) CC: Erika Engel DO; Mary Grant M.D. Signed EMERGENCY DEPARTMENT Observed: 07/29/2017 Status: F Source: [place] SUMMARY 7:09 PM [facility] REPOSITORY [facility] Medical Records Department [address] [place] [address] Emergency Department Summary 07/29/17 1727 MR#: [id number] Acct: [id number] Name: URIEL KWON Rep #: [id number] : 1995 22 From: Wu Shah PCP: Erika Engel DO Status: REG ER - ER Visit Summary Date of Service: 07/29/17 Chief Complaint: Left-sided chest pain History of Present Illness: The patient is a 22 M intermittent left-sided chest pain for the past 3 days. Symptoms started after being shocked by electrical outlet. He states he is plugging in a fan at work when he was shocked. He states he could not let go for approximately 1 minute. He did not pass out at that time. Intermittent sharp sensations that would last 30 minutes to an hour since then. Would have approximately 3 episodes a day. No radicular symptoms. Reported in triage, he had an episode causing nausea and a syncopal episode. No recent travel, surgeries, or immobilizations. Occasional tobacco history. No family history of MIs at a young age or any sudden heart . No previous similar symptoms in the past. No history of gastric ulcers or kidney injuries. Denies any symptoms currently. Physical Examination: General: Alert and oriented 3, no acute distress HEENT: Normocephalic, atraumatic. Moist mucosa membranes Neck: supple, nontender. Cardiovascular: Regular rate and rhythm, no murmurs. Respiratory: Normal breath sounds, symmetric, no distress Abdomen: Soft, nontender, nondistended Extremities: Nontender, no edema, pulses intact 4 Neuro: no focal neurological deficits. Test Results: EKG: Sinus rate of 80, no ST or T-wave changes. QTc 405. Hemoglobin 15. Creatinine 1.15. Troponin negative. ESR CRP pending. Chest x-ray negative. CTA chest: Pending Emergency Department Course and Treatment: Patient currently asymptomatic, EKG with no signs of dysrhythmia QTC was normal. History with electrical shock causing chest pain, discussed potential having pericarditis. Bedside ultrasound was negative. Workup with labs and was negative troponin. Chest x-ray negative. He was given aspirin. I did speak with nuclear medicine chief technologist, Dr. Grace, due to patient having syncopal episode likely vasovagal, he did want patient observe in the hospital to have an echocardiogram in the morning. He agrees with the workup. Requested ESR and CRP which is pending. Request a CT of the chest to rule out any potential other etiologies. He has no PE risk factors. This was ordered. I spoke with hospitalist, Dr. Grant who agrees to admit for further management. Family updated. Treatment Plan: [] Disposition: Admission Impression: 1. Acute chest pain 2. Vasovagal syncope This note was generated with Handango dictation software. It may contain incorrect words, spelling, and punctuation that were not noted in review of the chart prior to signing ED Disposition - Plan for ED Patient: Disposition: [facility] Chief Complaint: Chest Pain Diagnosis: Acute chest pain, Syncope Referrals: Erika Engel DO [Primary Care Provider] - What to do if you have Problems For any increased pain, shortness of breath, bleeding, nausea or vomiting, chest pain, or any unexpected problems, contact your Primary Care Provider. Call [facility] ([phone]) or report to the closest Emergency Room. Call 911 if necessary. 07/29/17 1909 <Electronically signed by Wu Shah> Date Wu Shah Cosigner Signature (If Indicated): Date CC: Erika Engel DO CTA CHEST W/WO Observed: 07/29/2017 Status: F Source: [place] CONTRAST 6:41 PM [facility] REPOSITORY [facility] Imaging Services [address] [place] [address] CTA Chest W/WO Contrast MR#: [id number] Acct: [id number] Name: URIEL KWON Rep #: [id number] : 1995 M 22 From: Tono Milligan DO PCP: Erika Engel DO Status: ADM SANTIAGO Study: CTA Chest W/WO Contrast Date of Exam: 07/29/17 Exam# [id number] Ordering Dr: Wu Reardon DO STUDY: CTA CHEST REASON FOR EXAM: Male, 22 years old. Electrical shock earlier this week. Sternal chest pain. RADIATION DOSAGE (If Supplied By Facility): CTDIvol = ( 18.12 ) mGy, DLP = ( 677.51 ) mGycm TECHNIQUE: The examination was performed with the intravenous administration of 100ml ml of Isovue 370 contrast material. Post-processing of the angiographic images was performed, with multiplanar reformation and 3D reconstruction. Individualized dose optimization techniques were used for this CT. COMPARISON: None. FINDINGS: Incidentally noted is pectus excavatum. Normal enhancement of the main pulmonary artery and right and left pulmonary arteries. Normal enhancement of the bilateral peripheral pulmonary arteries. There is no demonstrated pulmonary embolism. Normal thoracic aorta and visualized great vessels. There is no demonstrated aortic dissection. Normal heart and pericardium. Normal mediastinum. Normal hilar regions. Normal visualized trachea and bronchi. The lungs are well expanded. Normal pulmonary parenchyma. Normal pleura. Normal chest wall structures. Normal osseous structures. Normal visualized upper abdomen. CT/CTA Chest W/WO Contrast IMPRESSION: Normal CTA chest examination, without a demonstrated pulmonary embolism or arterial dissection. Pectus excavatum. Electronically Signed: Tono Milligan DO at 19:42 EDT Tel , Service support , CC: Erika Engel DO; Wu Reardon [place] Code Enforcement Officer: Signed CBC W/DIFF, AUTOMATED Collected: 07/29/2017 Status: F Source: JENNIEFR 5:00 PM [facility] REPOSITORY TYPE CODE TESTS RESULT OUT OF RANGE REFERENCE UNITS LAB L100.1000 4.4-11.0 K/mm3 Normal WBC 7.5 LAB L100.1200 4.6-6.2 M/mm3 Normal RBC 5.21 LAB L100.1300 13.0-16.5 g/dl Normal HGB 15.2 LAB L100.1400 40-54 % Normal HCT 44.3 LAB L100.1500 80-94 fL Normal MCV 85.0 LAB L100.1600 27.0-32.0 pg Normal MCH 29.2 LAB L100.1700 32-36 g/gl Normal MCHC 34.3 LAB L100.1810 11.6-14.6 % Normal RDW CV 12.0 LAB L100.1820 35.1-43.9 fl Normal RDW SD 36.9 LAB L100.1900 150-450 K/mm3 Normal PLT 272 LAB L100.2000 6.2-12.0 fl Normal MPV 10.6 LAB L100.2100 47-70 % Normal NEUT% 64.4 LAB L100.2200 19-41 % Normal LY% 27.6 LAB L100.2300 0-10 % Normal MONO% 6.1 LAB L100.2400 0-5 % Normal EO% 1.5 LAB L100.2500 0-1 % Normal BASO% 0.4 LAB L100.2550 0.0-0.9 % Normal IM GRAN % 0.000 Result Comment: IG% - Immature Granulocytes (promyelocytes, myelocytes and metamyelocytes) > 1% indicates that a LEFT SHIFT is Present. LAB L100.2620 2.0-7.7 X10 3/uL Normal Absolute Neut 4.8 LAB L100.2720 0.83-4.51 X10 3/ul Normal Absolute Lymph 2.07 Performed By: #### L100.0100 #### [facility] [address] [place], [address] BASIC METABOLIC Collected: 07/29/2017 Status: F Source: [place] PROFILE (BMP) 5:00 PM [facility] REPOSITORY TYPE CODE TESTS RESULT OUT OF RANGE REFERENCE UNITS LAB L501.0100 74-106 mg/dL Normal GLU 89 Result Comment: Please note revised GLUCOSE reference range effective 2017. LAB L501.1000 7-18 mg/dL High BUN 20 LAB L501.1100 0.70-1.30 mg/dL Normal CREAT,SERUM 1.15 Result Comment: The validity of the calculated GFR AND GFRAA in patients over 70 years has not been determined. Clinical correlation is essential. LAB L501.1110 >60 mL/min Normal EST GFR 85 Result Comment: Non- GFR Calc LAB L501.1115 >60 mL/min Normal EST GFR - AA 102 Result Comment: GFR Calc LAB L501.1255 ml/min Normal Estimated CRCL 117.14 LAB L501.1300 10-20 RATIO BUN/CRE Normal 17.4 LAB L501.2200 8.5-10 mg/dL .1 CA Normal 9.4 LAB L501.5300 136-14 mmol/L 5 NA Normal 142 LAB L501.5600 3.5-5. mmol/L 1 K Normal 4.0 LAB L501.5900 98-107 mmol/L High CL 108 LAB L501.6100 21.0-3 mmol/L 2.0 CO2 Normal 27.0 LAB L501.6200 5-15 GAP Normal 7 Performed By: #### L500.2500, L501.4010 #### [facility] [address] [place], [place], [address] TROPONIN-I Collected: 07/29/2017 Status: F Source: [place] 5:00 PM [facility] REPOSITORY TYPE CODE TESTS RESULT OUT OF RANGE REFERENCE UNITS LAB L501.4010 <0.045 ng/mL Normal < 0.015 TROPONIN-I Result Comment: TROPONIN-I EXPECTED VALUES <0.045 Negative 0.045 - 0.590 Consistent with Cardiac Damage > OR = 0.600 Critical Value Not every elevated troponin is indicative of MO. These values should be used with clinical judgement in examining the patient's clinical picture for diagnosis. To establish a diagnosis of MO versus myocardial injury, there must be a demonstrated rise and/or fall in the troponin values, in addition to ischemic symptoms, EKG changes, new regional wall motion abnormality, and/or angiographical evidence. PLEASE NOTE: REFERENCE RANGES EDITED 17 Performed By: #### L500.2500, L501.4010 #### [facility] [address], [address] ERYTHROCYTE SED RATE Collected: 07/29/2017 Status: F Source: [place] 5:00 PM [facility] REPOSITORY TYPE CODE TESTS RESULT OUT OF RANGE REFERENCE UNITS LAB L102.0000 0-15 mm/hr Normal SED RATE 2 Performed By: #### L101.9900 #### [facility] [address] [place], [address] CRP Collected: 07/29/2017 Status: F Source: [place] 5:00 PM [facility] REPOSITORY TYPE CODE TESTS RESULT OUT OF RANGE REFERENCE UNITS LAB L501.6710 0.0-3.0 mg/L Normal < 2.90 C-REACTIVE PROT Result Comment: C-Reactive Protein (CRP) provides useful information for the diagnosis, therapy and monitoring of inflammatory processes and associated diseases. For the evaluation of Relative Risk for Cardiovascular Disease, a High Sensitivity CRP (HSCRP) should be ordered. Performed By: #### L501.6710 #### [facility] [address] [place], [address] CHEST 1 VIEW Observed: 07/29/2017 Status: F Source: [place] (PORTABLE) 4:57 PM [facility] REPOSITORY [facility] Imaging Services [address] [place] [address] [place] [address] Chest 1 View (Portable) MR#: [id number] Acct: [id number] Name: URIEL KWON Rep #: [id number] : 1995 M 22 From: Tono Milligan DO PCP: Erika Engel DO Status: REG ER Study: Chest 1 View (Portable) Date of Exam: 07/29/17 Exam# [id number] Ordering Dr: Wu Reardon DO STUDY: X-RAY CHEST REASON FOR EXAM: Male, 22 years old. Electric shock on Wednesday. Now with chest pain TECHNIQUE: Single AP portable view of the chest. COMPARISON: None. FINDINGS: The lungs are clear and expanded. There is no demonstrated pleural abnormality. Normal size heart. Normal mediastinum and codey. Normal visualized pulmonary arteries. Normal visualized aortic arch and descending thoracic aorta. Normal visualized thoracic spine. Normal visualized ribs, clavicles, and shoulders. There is no demonstrated abnormality of the visualized soft tissue structures of the upper abdomen. RAD/Chest 1 View (Portable) IMPRESSION: Normal x-ray examination of the chest. Electronically Signed: Tono Milligan DO at 18:07 EDT Tel , Service support , CC: Erika Engel DO; Wu Reardon [place] Code Enforcement Officer: Signed ALLERGIES ALLERGIES DATE TYPE / CODE NAME / CODE REACTION SEVERITY SOURCE 02/04/2018 Drug No Known Unknown [facility] Allergy/416 Allergies/S49681 Hospital 243915(SNOM 0388(RXNORM) Repository ED CT) NG/[id number] NO KNOWN [facility] 6(SNOMED ALLERGIES [facility]) Repository Drug NO KNOWN [facility] Class/77097 ALLERGIES Other [place] 1003(SNOMED Repository CT) ENCOUNTERS ENCOUNTERS ADMIT/DISCHARGE ACCOUNT NUMBER ADMITTING ENCOUNTER LOCATION SOURCE CLASS 02/18/2018 [id number] Ambulatory [facility] ding:PSN Repository 02/15/2018 [id number] Ambulatory [facility] MEDICAL [place]ository [place]AG[place] A 02/04/2018/02/05/20 [id number] Ambulatory BMSBuilding: [address] Repository 01/20/2018 [id number] Ambulatory [facility] ding:LABSPEC Repository 01/17/2018 [id number] Ambulatory [facility] MEDICAL Repository [place] ng:AGCARDPHR A 01/12/2018/01/15/20 [id number] THAIS WOODARD Ambulatory [address] Other [place] Repository 01/12/2018/01/15/20 [id number] THAIS WOODARD Inpatient [address] MEDICAL Repository [place] 4102Bed: 02 01/12/2018/01/13/20 [id number] Emergency Jennifer [address] ding:ED Repository 12/27/2017/12/28/19 [id number] Ambulatory BMSBuilding: Jennifer 18 BMS.[facility] Repository 12/14/2017 [id number] [facility] Repository 12/14/2017/12/15/19 [id number] Ambulatory BMSBuilding: [place] 18 BMS.[facility] Repository 12/08/2017/12/09/19 [id number] Ambulatory [place] [address] ding:CLSP Repository 12/08/2017/12/09/19 [id number] Ambulatory BMSBuilding: Jennifer 18 [facility] Repository 12/02/2017/12/03/19 [id number] Ambulatory BMSBuilding: Jennifer 18 BMS.[facility] Repository 11/18/2017/11/19/19 [id number] Emergency Jennifer[address] ding:ED Repository 11/10/2017/11/11/19 [id number] Ambulatory BMSBuilding: Jennifer 18 BMS.[facility] Repository 11/08/2017/11/09/19 [id number] Ambulatory BMSBuilding: Jennifer 18 BMS.[facility] Repository 11/05/2017/11/06/19 [id number] Ambulatory BMSBuilding: Jennifer 18 BMS.[facility] Repository 11/03/2017/11/04/19 [id number] Ambulatory BMSBuilding: [place] 18 BMS.[facility] Repository 10/13/2017/10/14/19 [id number] Ambulatory BMSBuilding: Jennifer 18 BMS.[facility] Repository 10/06/2017/10/07/19 [id number] Ambulatory BMSBuilding: Jennifer 18 BMS.[facility] Repository 09/21/2017/09/22/19 [id number] Ambulatory BMSBuilding: Jennifer 18 BMS.[facility] Repository 09/08/2017 [id number] [facility] 09/08/2017 [id number] Ambulatory BMSBuilding: [place] [facility] Repository 09/01/2017/09/02/19 [id number] Ambulatory BMSBuilding: [place] 18 BMS.[facility] Repository 08/31/2017/09/01/19 [id number] Ambulatory BMSBuilding: Jennifer 18 BMS.[facility] Repository 08/27/2017 [id number] Ambulatory BMSBuilding: Jennifer BMS.[facility] Repository 08/16/2017/08/17/19 [id number] Ambulatory BMSBuilding: [place] 18 BMS.[facility] Repository 08/03/2017/08/04/19 [id number] Ambulatory BMSBuilding: [place] 18 BMS.[facility] Repository 07/30/2017 [id number] Ambulatory [facility] ding:[facility]S Repository 07/30/2017 [id number] [facility] 07/29/2017/07/31/19 [id number] Imamura, Ambulatory [address] ding:PCURoom Repository : ZTM301Esq: 1 07/29/2017 [id number] Imamura, Ambulatory BMSBuilding: [place] Yoichi BMS.[facility] Repository 07/29/2017 [id number] Imamura, Ambulatory BMSBuilding: Jennifer Yoichi BMS.CF.[facility] Repository 07/29/2017 [id number] Imamura, Ambulatory BMSBuilding: [place] Yoichi BMS.[facility] Repository 07/29/2017/07/31/19 [id number] Ambulatory BMSBuilding: [place] 18 [facility] Repository PAYERS PAYERS ENCOUNTER GUARANTOR PAYER SUBSCRIBER SOURCE 02/18/2018 URIEL Subramanian Primary Insurance:SOY Barbosa EDI [id number] OLIVER: [facility] Number: [id number] [id number] Repository [address]Mhn: 330 Date:9020-77-14YG [phone] (QH) [address], [place] [address]IF: 02/18/2018 Secondary NOT GIVENUNK [place] Insurance:SELF PAY [facility] Number: Effective Repository Date:2018-02-15 02/15/2018 URIEL Primary Insurance:[facility] CHRISTIANO KWONDOB: UMR OPTIONS Clara KWONDOB: Health System Number: [id number] Repository [facility] [id number] [place] Date: [address]Hhn: (HP) 02/04/2018 URIEL T Primary Insurance:UMR CHRISTIANO [address] [id number] KELLYDOB: [facility] Number: [id number] [id number] Repository [address]Fer: 330) Date:9834-87-11KG [phone] () [address] [place] [address]AH: 02/04/2018 Secondary NOT GIVENUNK Jennifer Insurance:SELF PAY [facility] Number: Effective Repository Date:2018-02-02 01/20/2018 URIEL T Primary Insurance:UMR CHRISTIANO [address] [id number] KELLYDOB: [facility] Number: [id number], [place] [id number] Repository [address]Tem: (330) Date:5414-68-72IU [phone] () [address] [place] [address]SW: 01/20/2018 Secondary NOT GIVENUNK Jennifer Insurance:SELF PAY [facility] Number: Effective Repository Date:2018-01-20 01/17/2018 URIEL Primary Insurance:[facility] CHRISTIANO MONTGOMERYB: UMR OPTIONS Clara MONTGOMERYB: Health System Number: [id number] Repository [facility] [id number] [place] Date: [address]Upx: (HP) 01/12/2018 URIEL Primary Insurance:[facility] CHRISTIANO MONTGOMERYB: Kendall OPTIONS PPOPolicy VALENTINAB: Health System Number: [id number] Repository [place] [id number] [place] Date: [address]Iek: (HP) 01/12/2018 URIEL T Primary Insurance:SOY [address] [id number] KELLYDOB: [facility] Number: [id number], [place] [id number] Repository [address]Gvs: (330) Date:6322-44-91XV [phone] (HP) [address] [place] [address]XJ: 01/12/2018 Secondary NOT GIVENUNK [place] Insurance:SELF PAY [facility] Number: Effective Repository Date:2018-01-12 12/27/2017 URIEL T Primary Insurance:Kendall [address] [id number] KELLYDOB: [facility] MID[place]LE Number: [id number], [place] [id number] Repository [address]Vnu: (330) Date:5452-23-48WZ [phone] () [address] [place] [address]QH: 12/27/2017 Secondary NOT GIVENUNK [place] Insurance:SELF PAY [facility] Number: Effective Repository Date:2017-12-27 12/14/2017 URIEL T Primary Insurance:Kendall [address] [id number] KELLYDOB: [facility] MID[place]LE Number: [id number], [place] [id number] Repository [address]Cup: (330) Date:3470-23-04XL [phone] () [address] [place] [address]NE: 12/14/2017 Secondary NOT GIVENUNK Jennifer Insurance:SELF PAY [facility] Number: Effective Repository Date:2017-12-14 12/14/2017 URIEL T Primary Insurance:Kendall [address] [id number] KELLYDOB: [facility] Number: [id number], [place] [id number] Repository [address]Dnd: (330) Date:4351-81-70QN [phone] (HP) [address] [place] [address]JF: 12/14/2017 Secondary NOT GIVENUNK [place] Insurance:SELF PAY [facility] Number: Effective Repository Date:2017-12-14 12/08/2017 URIEL T Primary Insurance:UMR CHRISTIANO [address] [id number] KELLYDOB: [facility] Number: [id number], [place] [id number] Repository [address]Spa: (330) Date:7041-39-52BC [phone] () [address] [place] [address]NH: 12/08/2017 Secondary NOT GIVENUNK Jennifer Insurance:SELF PAY [facility] Number: Effective Repository Date:2017-12-02 12/08/2017 URIEL T Primary Insurance:UMR CHRISTIANO [address] [id number] KELLYDOB: [facility] Number: [id number], [place] [id number] Repository [address]Qfn: (330) Date:4842-17-41ZQ [phone] () [address] [place] [address]PU: 12/08/2017 Secondary NOT GIVENUNK Jennifer Insurance:SELF PAY [facility] Number: Effective Repository Date:2017-12-08 12/02/2017 URIEL T Primary Insurance:UMR CHRISTIAON [address] [id number] KELLYDOB: [facility] MIDDLE Number: [id number], [place] [id number] Repository [address]Cms: (330) Date:4789-55-80VG [phone] () [address] [place] [address]KJ: 12/02/2017 Secondary NOT GIVENUNK Jennifer Insurance:SELF PAY [facility] Number: Effective Repository Date:2017-12-02 11/18/2017URIEL T Primary Insurance:UMR CHRISTIANO Kendall [id number] [id number] CHERDOB: [facility] Number: [id number], [place] [id number] Repository [address]Wyp: 330) Date:5886-46-03LF [phone] () [address] [place] [address]JD: 11/18/2017 Secondary NOT GIVENUNK Jennifer Insurance:SELF PAY [facility] Number: Effective Repository Date:2017-11-18 11/10/2017 URIEL T Primary Insurance:UMR CHRISTIANO Kendall [address] [id number] KELLYDOB: [facility] Number: [id number], [place] [id number] Repository [address]Hyg: 330) Date:2444-82-40MH [phone] () [address] [place] [address]KO: 11/10/2017 Secondary NOT GIVENUNK Jennifer Insurance:SELF PAY [facility] Number: Effective Repository Date:2017-10-14 11/08/2017 URIEL T Primary Insurance:UMR CHRISTIANO [address] [id number] KELLYDOB: [facility] Number: [id number], [place] [id number] Repository 28[address]Dps: 330) Date:9114-45-03CI [phone] () [address] [place] [address]EE: 11/08/2017 Secondary NOT GIVENUNK Jennifer Insurance:SELF PAY [facility] Number: Effective Repository Date:2017-11-08 11/05/2017 URIEL T Primary Insurance:UMR CHRISTIANO [address] [id number] KELLYDOB: [facility] Number: [id number], [place] [id number] Repository [address]Cpx: (330) Date:2040-03-02NH [phone] (HP) [address] [place] [address]XR: 11/05/2017 Secondary NOT GIVENUNK Jennifer Insurance:SELF PAY [facility] Number: Effective Repository Date:2017-11-05 11/03/2017 [facility] T Primary Insurance:UMR CHRISTIANO Kendall [address] [id number] KELLYDOB: [facility] Number: [id number], [place] [id number] Repository [address]Lka: (330) Date:1698-02-81QK [phone] () [address] [place] [address]UV: 11/03/2017 Secondary NOT GIVENUNK [place] Insurance:SELF PAY [facility] Number: Effective Repository Date:2017-11-03 10/13/2017 [facility] T Primary Insurance:UMR CHRISTIANO Kendall [id number] [id number] KELLYDOB: [facility] Number: [id number], [place] [id number] Repository [address]Rrl: (330) Date:7481-34-73PI [phone] () [address] [place] [address]QT: 10/13/2017 Secondary NOT GIVENUNK Jennifer Insurance:SELF PAY [facility] Number: Effective Repository Date:2017-10-13 10/06/2017 [facility] T Primary Insurance:UMR CHRISTIANO Kendall [address] [id number] KELLYDOB: [facility] Number: [id number], [place] [id number] Repository [address]Izz: (330) Date:8067-36-36VO [phone] () [address] [place] [address]BS: 10/06/2017 Secondary NOT GIVENUNK Jennifer Insurance:SELF PAY [facility] Number: Effective Repository Date:2017-09-27 09/21/2017 URIEL T Primary Insurance:UMR CHRISTIANO R Jennifer [id number] [id number] VALENTINAB: [facility] Number: [id number], [place] [id number] Repository [address]Lvr: (330) Date:4626-67-28NQ [phone] (HP) [address] [place] [address]DU: 09/21/2017 Secondary NOT GIVENUNK [place] Insurance:SELF PAY [facility] Number: Effective Repository Date:2017-09-21 09/08/2017 URIEL T Primary URIEL T [place] [id number] E Insurance:[facility] CHERDOB: [facility] [id number], [place] [facility]ENTERPolmer[facility] Number: Repository [id number]: (144) [id number] [phone] () Date:0714-99-89TXKCarlton, [place] [address]OI: 09/08/2017 Secondary CHRISTIANO R Jennifer Insurance:R [address] MONTGOMERYB: [facility] [address]Vlufms Number: [id number] [facility] [id number] Repository Date:3094-81-28SY [address] [place] [address]PV: 09/08/2017 Tertiary NOT GIVENUNK [place] Insurance:SELF PAY [facility] Number: Effective Repository Date:2017-08-31 09/08/2017 URIEL T Primary Insurance:UMR CHRISTIANO R [place] [id number] [id number] CHERDOB: [facility] Number: [id number], [place] [id number] Repository [address]25[address]Kcm: (330) Date:0268-12-58VN [phone] (HP) [address] [place] [address]LI: 09/08/2017 Secondary NOT GIVENUNK Jennifer Insurance:SELF PAY [facility] Number: Effective Repository Date:2017-09-08 09/01/2017 URIEL T Primary Insurance:UMR CHRISTIANO R [place] [id number] [id number] CHERDOB: [facility] MIDDLE Number: [id number], [place] [id number] Repository [address]Ugu: (330) Date:3022-23-78MR [phone] () [address] [place], [place] [address]WP: 09/01/2017 Secondary URIEL T [place] Insurance:OB KELLYDOB: [facility] [id number] Number: Repository [id number] Date:9573-05-01DMKCarlton, [place] [address]TV: 09/01/2017 Tertiary NOT GIVENUNK [place] Insurance:SELF PAY [facility] Number: Effective Repository Date:2017-09-01 08/31/2017 URIEL T Primary Insurance:UMR CHRISTIANO R [place] [id number] [id number] CHERDOB: [facility] MIDDLE Number: [id number], [place] [id number] Repository [address]Cdz: (330) Date:1885-90-72AF [phone] () [address] [place] [address]NV: 08/31/2017 Secondary NOT GIVENUNK [place] Insurance:SELF PAY [facility] Number: Effective Repository Date:2017-08-31 08/27/2017 URIEL T Primary URIEL T [place] [id number] E Insurance[facility] CHERDOB: [facility] MIDDLE Number: [id number], [place] [id number] Repository [address]Jgu: (330) Date:2017-08-27.., . [phone] () .WP: . 08/27/2017 Secondary CHRISTIANO R [place] Insurance:UMR [address] CHERDOB: [facility] [address]Porkhb Number: [id number] [id number] Repository Date:0501-33-55QQ [address] [place] [address]QM: 08/27/2017 Tertiary NOT GIVENUNK [place] Insurance:SELF PAY [facility] Number: Effective Repository Date:2017-08-27 08/16/2017 URIEL T Primary Insurance:UMR CHRISTIANO [address] [id number] CHERDOB: [facility] MIDDLE Number: [id number], [place] [id number] Repository 18[address]Jpe: 330) Date:0329-51-60QH [phone] () [address] [place] [address]WV: 08/16/2017 Secondary URIEL T Jennifer Insurance:[facility] CHERDOB: [facility] [id number] [facility] Number: Repository [id number] Date:3645-48-23QEUCarlton, [place] [address]BB: 08/16/2017 Tertiary NOT GIVENUNK Jennifer Insurance:SELF PAY [facility] Number: Effective Repository Date:2017-08-16 08/03/2017 URIEL T Primary Insurance:UMR CHRISTIANO [address] [id number] KELLYDOB: [facility] Number: [id number], [place] [id number] Repository [address]Kyb: (330) Date:7877-41-34RR [phone] () [address] [place] [address]WA: 08/03/2017 Secondary NOT GIVENUNK [place] Insurance:SELF PAY [facility] Number: Effective Repository Date:2017-08-02 07/30/2017 URIEL T Primary NOT GIVENUNK Jennifer [id number] E Insurance:SELF [place] Number: Effective Repository [address]Ivl: (330) Date:2017-07-30 [phone] () 07/30/2017 URIEL T Primary Insurance:UMR CHRISTIANO Kendall [id number] [id number] CHERDOB: [facility] MIDDLE Number: [id number], [place] [id number] Repository 42941Nff: (330) Date:4073-75-26PY [phone] (HP) [address] [place] [address]OZ: 07/30/2017 Secondary NOT GIVENUNK Jennifer Insurance:SELF PAY [facility] Number: Effective Repository Date:2017-07-30 07/29/2017 URIEL T Primary URIEL T Jennifer [id number] E Insurance:[facility] VALENTINAB: [facility] MIDDLE [facility] [id number], [place] UNICOMPPolicy Number: Repository [id number]: 330 [id number] [phone] (HP) Date:2406-00-24OSZCarlton, [place] [address]FB: 07/29/2017 Secondary CHRISTIANO R [place] Insurance:[facility] VALENTINAB: [facility] [address]Kcrkyr Number: [id number] [id number] Repository Date:5110-27-99CC [address] [place] [address]NJ: 07/29/2017 Tertiary NOT GIVENUNK Jennifer Insurance:SELF PAY [facility] Number: Effective Repository Date:2017-07-29 07/29/2017 URIEL T Primary Insurance:R CHRISTIANO Kendall [address] [id number] VALENTINAB: [facility] MIDDLE Number: [id number], [place] [id number] Repository 459[address]Ped: (330) Date:3465-95-47LF [phone] () [address] [place] [address]IU: 07/29/2017 Secondary URIEL T Jennifer Insurance:[facility] VALENTINAB: [facility] [id number] Hospital UNICOMPPolicy Number: Repository [id number] Date:6797-52-93UQUCarlton, [place] [address]JV: 07/29/2017 Tertiary NOT GIVENUNK [place] Insurance:SELF PAY [facility] Number: Effective Repository Date:2017-07-29 07/29/2017 URIEL T Primary Insurance:UMR CHRISTIANO [address] [id number] KELLYDOB: [facility] Number: [id number], [place] [id number] Repository 215[address]Kdm: (330) Date:9100-36-16ZJ [phone] () [address] [place] [address]PV: 07/29/2017 Secondary NOT GIVENUNK [place] Insurance:SELF PAY [facility] Number: Effective Repository Date:2017-07-29 07/29/2017 URIEL T Primary Insurance:UMR CHRISTIANO [address] [id number] KELLYDOB: [facility] Number: [id number], [place] [id number] Repository [address]Lfi: (330) Date:0635-69-98KN [phone] () [address] [place] [address]JX: 07/29/2017 Secondary URIEL T Jennifer Insurance:[facility] CHERDOB: [facility] [id number] [facility] Number: Repository [id number] Date:9813-74-61DXHCarlton, [place] [address]TZ: 07/29/2017 Tertiary NOT GIVENUNK Jennifer Insurance:SELF PAY [facility] Number: Effective Repository Date:2017-07-29 07/29/2017 URIEL T Primary Insurance:UMR CHRISTIANO [address] [id number] KELLYDOB: [facility] Number: [id number], [place] [id number] Repository [address]Hbk: (330) Date:4887-62-33PD [phone] () [place], [place] [address]TA: 07/29/2017 Secondary NOT GIVENUNK Jennifer Insurance:SELF PAY Community [facility] Number: Effective Repository Date:2017-07-29
== END ==
PROVIDERS: Family Provider Family Medicine; PCP Family Medicine; Referring Provider Nurse Practitioner Family; Visit Provider Nurse Practitioner Family
DX: K92.1 Melena (principal); R10.9 Unspecified abdominal pain
CPT/HCPCS: 82274

== ENCOUNTER → 2018-02-18 07:21 | Outpatient (CLI) | payer OTHER, SELFPAY ==
[2018-02-04 14:52] VITALS: BMI 27.1
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
== END ==
PROVIDERS: Family Provider Family Medicine; PCP Family Medicine; Referring Provider Nurse Practitioner Acute Care; Visit Provider Nurse Practitioner Acute Care
DX: R56.9 Unspecified convulsions (principal)
CPT/HCPCS: 70551; 95819

== ENCOUNTER 2018-05-12 14:46 | Emergency (ER) | payer OTHER, SELFPAY ==
[2018-02-04 14:52] VITALS: BMI 27.1
[2018-05-12 14:47] VITALS: BP 126/76; PULSE 62; RESP 17; TEMP 36.7; O2SAT 99; BMI 27.4
--- NOTE | 2018-05-12 14:50 | EKG12_ITS ---
Test Reason : SYNCOPE Blood Pressure : / mmHG Vent. Rate : 054 BPM Atrial Rate : 054 BPM P-R Int : 154 ms QRS Dur : 088 ms QT Int : 406 ms P-R-T Axes : 068 -27 017 degrees QTc Int : 385 ms Sinus bradycardia Otherwise normal ECG Confirmed by ROD DUONG, BEE ([id number]), editorial writer DEANNA GREGORIO ([id number]) on 05/16/2018 10:48:37 AM Referred By: AAMIR Confirmed By:BEE VELASCO MD
[2018-05-12 15:28] VITALS: BP 132/64; PULSE 63; RESP 16; O2SAT 98
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
[2018-05-12 16:05] VITALS: BP 128/81; PULSE 81; RESP 16; O2SAT 97
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
--- NOTE | 2018-05-12 16:07 | ED.DEP ---
ED Disposition - Plan for ED Patient: Disposition: Home or Assisted Living Instructions: ED Syncope Vasovagal Prescriptions: Ondansetron [Zofran Odt] 4 mg PO Q8H PRN PRN #14 tab PRN Reason: Nausea Referrals: Manuel Engel DO [Primary Care Provider] - As Needed Additional Instructions: Follow-up with your aerial installer from [facility]. Plenty of fluids. Zofran as needed for nausea you may swallow it or you can let dissolve under your tongue. More than likely you need long-term cardiac monitoring. They need to catch the bradycardia is causing you to pass out to determine the next intervention. If this is the cause they may consider a pacemaker.
--- NOTE | 2018-05-12 16:10 | DCINST.ED_ITS ---
ED Disposition - Plan for ED Patient: Disposition: Home or Assisted Living Instructions: ED Syncope Vasovagal Prescriptions: Ondansetron [Zofran Odt] 4 mg PO Q8H PRN PRN #14 tab PRN Reason: Nausea Referrals: Manuel Engel DO [Primary Care Provider] - As Needed Additional Instructions: Follow-up with your gas mask inspector from [facility] Plenty of fluids. Zofran as needed for nausea you may swallow it or you can let dissolve under your tongue. More than likely you need long-term cardiac monitoring. They need to catch the bradycardia is causing you to pass out to determine the next intervention. If this is the cause they may consider a pacemaker.
[2018-05-12 16:12] VITALS: BP 122/80; BP 127/71; BP 137/78; PULSE 63; PULSE 64; PULSE 65
[2018-05-12 16:20] LABS: Bedside Glucose 80 mg/dL (70-110)
== END 2018-05-12 16:20 | disposition home or self-care (01) ==
PROVIDERS: Emergency Provider Emergency Medicine; Family Provider Family Medicine; PCP Family Medicine
DX: R55 Syncope and collapse (principal)
CPT/HCPCS: 82962; 93005; 99285; A4216

== ENCOUNTER → 2019-07-05 13:10 | Outpatient (CLI) | payer OTHER, SELFPAY ==
[2019-07-05 13:05] VITALS: BMI 27.4
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
== END ==
LOC: HPRAD 13:11
PROVIDERS: PCP Family Medicine; Referring Provider Physician Assistant; Visit Provider Physician Assistant
DX: Z95.0 Presence of cardiac pacemaker (principal)
CPT/HCPCS: 71046

== ENCOUNTER → 2019-08-21 09:46 | Outpatient (CLI) | payer OTHER, SELFPAY ==
[2019-08-17 11:07] VITALS: BMI 27.4
[2019-08-21 10:46] LABS: Glucose GTT- Fasting 101 mg/dL (74-106)
[2019-08-21 11:34] LABS: Glucose GTT-30 minutes 139 mg/dL (110-170)
[2019-08-21 11:34] LABS: Glucose GTT- 1 Hour 104 mg/dL (120-170)
[2019-08-21 13:07] LABS: Glucose GTT- 2 Hour 108 mg/dL (70-120)
[2019-08-21 13:31] LABS: Glucose GTT- 3 Hour 80 mg/dL (74-106)
== END ==
LOC: LAB 09:48
PROVIDERS: PCP Family Medicine; Referring Provider Family Medicine; Visit Provider Family Medicine
DX: E16.2 Hypoglycemia, unspecified (principal)
CPT/HCPCS: 36415; 82951; 82952

== ENCOUNTER → 2019-12-22 11:58 | Outpatient (CLI) | payer OTHER, SELFPAY ==
[2019-12-22 11:04] VITALS: BMI 30.5
[2019-12-22 13:01] LABS: Absolute Lymphocyte Count 2.02 X10^3/uL (0.83-4.51); Absolute Neutrophil Count 4.2 X10^3/uL (2.0-7.7); Basophil# 0.04 X10^3/uL; Basophil% 0.6 % (0-1); Eosinophil# 0.16 X10^3/uL; Eosinophils% 2.3 % (0-5); Hematocrit 49.5 % (40-54); Hemoglobin 16.5 g/dL (13.0-16.5); Lymphocyte # 2.02 X10^3/ul (4.0); Mean Corp Hgb Conc 33.3 g/dL (32-36); Mean Corpuscular Hgb 29.3 pg (27.0-32.0); Mean Corpuscular Volume 87.8 fL (80-94); Mean Platelet Vol. 10.7 fl (6.2-12.0); Monocyte# 0.54 X10^3/uL; Monocyte% 7.7 % (0-10); NRBC Flagged by Analyzer 0 % (0-5); Neutrophil % 60.3 % (47-70); Platelet Count 311 K/mm3 (150-450); RBC Distribution Width CV 11.6 % (11.6-14.6); RBC Distribution Width SD 37.1 fl (35.1-43.9); Red Blood Count 5.64 M/mm3 (4.6-6.2)
[2019-12-22 13:40] LABS: Vitamin B12 446 pg/mL (211-911); Vitamin D,25 Hydroxy 28.7 ng/mL
[2019-12-22 13:49] LABS: ALB/GLOB Ratio 1.2 RATIO (0.9-2.4); AST(SGOT) 17 U/L (15-37); Alanine Aminotransfer ALT/SGPT 27 U/L (16-61); Albumin, Serum 4.4 g/dL (3.2-5.0); Alkaline Phosphatase 75 U/L (45-117); Amylase 46 U/L (25-115); Anion Gap 5 (5-15); BUN 14 mg/dL (7-18); BUN/Creat Ratio 12.5 RATIO (10-20); Calcium,Total 8.9 mg/dL (8.5-10.1); Chloride 106 mmol/L (98-107); Creatinine, Serum 1.12 mg/dL (0.70-1.30); EST Glomerular Filtration Rate 85 mL/min (>60); Est Glom Filt Rate - Afr Amer 103 mL/min (>60); Globulin 3.8 g/dL (2.2-4.2); Glucose 86 mg/dL (74-106); Lipase 54 U/L (73-393); Potassium 4.1 mmol/L (3.5-5.1); Protein, Total 8.2 g/dL (6.4-8.2); Sodium Level 139 mmol/L (136-145); Thyroid Stim Hormone (TSH) 1.55 uIU/mL (0.358-3.74)
== END ==
LOC: LAB 12:00
PROVIDERS: PCP Family Medicine; Referring Provider Nurse Practitioner Family; Visit Provider Nurse Practitioner Family
DX: R11.2 Nausea with vomiting, unspecified (principal); K31.84 Gastroparesis
CPT/HCPCS: 36415; 80053; 82150; 82306; 82607; 83690; 84443; 85025

== ENCOUNTER → 2020-01-11 18:33 | Outpatient (CLI) | payer OTHER, SELFPAY ==
[2019-12-22 11:04] VITALS: BMI 30.5
== END ==
PROVIDERS: PCP Family Medicine; Visit Provider Internal Medicine Gastroenterology
DX: Z11.59 Encounter for screening for other viral diseases (principal)
CPT/HCPCS: 87635; C9803; U0003

== ENCOUNTER 2021-04-07 15:21 | Outpatient (CLI) | payer OTHER, SELFPAY ==
[2021-04-07 18:39] LABS: ALB/GLOB Ratio 1.1 RATIO (0.9-2.4); AST(SGOT) 16 U/L (15-37); Alanine Aminotransfer ALT/SGPT 30 U/L (16-61); Albumin, Serum 4.2 g/dL (3.2-5.0); Alkaline Phosphatase 85 U/L (45-117); Anion Gap 6 (5-15); BUN 14 mg/dL (7-18); CRP < 2.90 mg/L (0.0-3.0); Calcium,Total 8.8 mg/dL (8.5-10.1); Chloride 107 mmol/L (98-107); Creatinine, Serum 1.17 mg/dL (0.70-1.30); EST Glomerular Filtration Rate 80 mL/min (>60); Est Glom Filt Rate - Afr Amer 97 mL/min (>60); Globulin 3.8 g/dL (2.2-4.2); Glucose 68 mg/dL (74-106); Potassium 3.7 mmol/L (3.5-5.1); Sodium Level 141 mmol/L (136-145); T4 Total, Thyroxin 7.7 ug/dL (4.5-12.1); Thyroid Stim Hormone (TSH) 0.44 uIU/mL (0.358-3.74)
[2021-04-09 17:07] LABS: Endomysial Antibody IgA Negative (Negative)
[2021-04-09 17:54] LABS: Immunoglobulin A 239 mg/dL (90-386); t-Transglutaminase IgA <2 U/mL (0-3)
== END 2021-04-07 23:59 | disposition home or self-care (01) ==
PROVIDERS: PCP Family Medicine; Referring Provider Internal Medicine Gastroenterology; Visit Provider Internal Medicine Gastroenterology
DX: R11.2 Nausea with vomiting, unspecified (principal)
CPT/HCPCS: 36415; 80053; 82784; 83516; 84436; 84443; 86140; 86255

== ENCOUNTER → 2021-09-12 | Outpatient (CLI) | payer OTHER, SELFPAY ==
--- NOTE | 2021-09-12 15:24 | RAD_ITS ---
STUDY: X-RAY - LUMBAR SPINE REASON FOR EXAM: Male, 26 years old. lumbar pain TECHNIQUE: XR Spine Lumbar 2 or 3 Views COMPARISON: None FINDINGS: Normal lumbar lordosis. There is no substantial scoliosis. There is a normal alignment of the vertebrae. Normal vertebral bodies and endplates. Normal disc space heights. The soft tissue structures are unremarkable. RAD/Lumbar Spine 2 or 3 Views IMPRESSION: There are no acute findings. Electronically Signed: Johny Marino MD at 18:01 EDT ,
== END | disposition home or self-care (01) ==
PROVIDERS: PCP Family Medicine; Referring Provider Nurse Practitioner Family; Visit Provider Nurse Practitioner Family
DX: M54.50 Low back pain, unspecified (principal); R32 Unspecified urinary incontinence
CPT/HCPCS: 72100

== ENCOUNTER → 2022-03-25 | Outpatient (CLI) | payer OTHER, SELFPAY ==
[2022-03-25 14:09] LABS: AST(SGOT) 23 U/L (15-37); Cholesterol 146 mg/dL (200); High Density Lipoprotein 51 mg/dL; Triglycerides 69 mg/dL; Very Low Density Lipoprotein 14 mg/dL (5-40)
== END | disposition home or self-care (01) ==
PROVIDERS: PCP Family Medicine
DX: E78.00 Pure hypercholesterolemia, unspecified (principal)
CPT/HCPCS: 36415; 80061; 84450

== ENCOUNTER → 2022-07-16 | Outpatient (CLI) | payer OTHER, SELFPAY ==
[2022-07-16 12:28] LABS: Absolute Lymphocyte Count 1.89 X10^3/uL (0.83-4.51); Absolute Neutrophil Count 4.2 X10^3/uL (2.0-7.7); Basophil# 0.05 X10^3/uL; Basophil% 0.7 % (0-1); Eosinophil# 0.28 X10^3/uL; Eosinophils% 4.1 % (0-5); Hematocrit 47.4 % (40-54); Hemoglobin 15.6 g/dL (13.0-16.5); Lymphocyte # 1.89 X10^3/ul (0.83-4.51); Lymphocyte % 27.4 % (19-41); Mean Corp Hgb Conc 32.9 g/dL (32-36); Mean Corpuscular Hgb 28.8 pg (27.0-32.0); Mean Corpuscular Volume 87.5 fL (80-94); Mean Platelet Vol. 10.8 fl (6.2-12.0); Monocyte# 0.46 X10^3/uL; Monocyte% 6.7 % (0-10); NRBC Flagged by Analyzer 0 % (0-5); Neutrophil # 4.21 X10^3/uL (2.7-7.7); Neutrophil % 60.8 % (47-70); Platelet Count 277 K/mm3 (150-450); RBC Distribution Width CV 12.1 % (11.6-14.6); RBC Distribution Width SD 38.7 fl (35.1-43.9); Red Blood Count 5.42 M/mm3 (4.6-6.2); White Blood Count 6.9 K/mm3 (4.4-11.0)
[2022-07-16 12:51] LABS: Vitamin D,25 Hydroxy 30.6 ng/mL
[2022-07-16 13:03] LABS: Anion Gap 7 (5-15); BUN 17 mg/dL (7-18); BUN/Creat Ratio 15.7 RATIO (10-20); Calcium,Total 9.2 mg/dL (8.5-10.1); Chloride 107 mmol/L (98-107); Creatinine, Serum 1.08 mg/dL (0.70-1.30); EST Glomerular Filtration Rate 87 mL/min (>60); Est Glom Filt Rate - Afr Amer 106 mL/min (>60); Glucose 103 mg/dL (74-106); Sodium Level 139 mmol/L (136-145); Thyroid Stim Hormone (TSH) 1.61 uIU/mL (0.358-3.74)
== END | disposition home or self-care (01) ==
LOC: BIMLAB 09:22
PROVIDERS: PCP Family Medicine; Visit Provider Nurse Practitioner Family
DX: Z00.00 Encounter for general adult medical examination without abnormal findings (principal)
CPT/HCPCS: 36415; 80048; 82306; 84443; 85025

== ENCOUNTER 2024-10-16 10:09 | Emergency (ER) | payer MEDICAID, SELFPAY ==
[2024-10-16 10:09] VITALS: BP 145/78; PULSE 68; RESP 14; TEMP 36.2; O2SAT 98; BMI 33.0
[2024-10-16 11:09] VITALS: BP 137/77; PULSE 51; O2SAT 99
[2024-10-16 12:00] VITALS: BP 131/78; PULSE 57; O2SAT 100
[2024-10-16 12:22] LABS: Hematocrit 44.1 % (40-54); Hemoglobin 14.9 g/dL (13.0-16.5); Immature Granulocytes Count 0.020 X10^3/uL (0.0-0.0); Mean Corp Hgb Conc 33.8 g/dL (32-36); Mean Corpuscular Volume 85.1 fL (80-94); Mean Platelet Vol. 10.7 fl (6.2-12.0); NRBC Flagged by Analyzer 0 % (0-5); Platelet Count 271 K/mm3 (150-450); RBC Distribution Width CV 11.9 % (11.6-14.6); RBC Distribution Width SD 36.6 fl (35.1-43.9); Red Blood Count 5.18 M/mm3 (4.6-6.2); White Blood Count 6.4 K/mm3 (4.4-11.0)
[2024-10-16 12:33] LABS: AST(SGOT) 20 U/L (<=37); Alanine Aminotransfer ALT/SGPT 20 U/L (<=46); Albumin, Serum 4.3 g/dL (3.5-5.0); Alkaline Phosphatase 76 U/L (40-129); Anion Gap 10 (5-15); BUN 12 mg/dL (4-19); BUN/Creat Ratio 12.9 RATIO (10-20); Calcium,Total 9.2 mg/dL (7.6-11.0); Carbon Dioxide 22.7 mmol/L (21.0-32.0); Chloride 106 mmol/L (98-108); Estimated Creatinine Clearance 166.29 ml/min (50-250); Globulin 2.8 g/dL (2.2-4.2); Glucose 95 mg/dL (70-99); Potassium 4.2 mmol/L (3.3-5.1)
[2024-10-16 14:00] VITALS: BP 127/78; PULSE 64; RESP 18; TEMP 37; O2SAT 98
--- NOTE | 2024-10-16 14:01 | ED.VIS.GI ---
HPI HPI - GI History of Present Illness Chief Complaint: GI Bleed Informant: patient Narrative Narrative: Patient is a 29-year-old male presenting with bright red blood per rectum. Has had 3 episode since last night. Initially last night had some lower abdominal pain but had no pain since. Denies any fever or chills. Has a history of any bleeding issues. States he had similar episode about 10 years ago but it never happened again so he never saw GI. Denies any family history of ulcerative colitis or Crohn disease. Denies any nausea or vomiting. States he is otherwise been in his normal state of health. States he normally has 3-5 bowel movements a day. No other complaints or concerns at this time. [facility] Medical History Encounter for preventative adult health care examination Rib pain on left side Low back pain Urinary incontinence Pacemaker SOB (shortness of breath) Accidental electrocution Dizziness Back problem Syncope Acute chest pain Home Medications ?Medication ?Instructions ?Recorded ?Last Taken ?Type omeprazole magnesium 20 mg 20 mg PO PRN 10/16/24 10/11/24 History tablet,delayed release (Prilosec OTC) Allergy/AdvReac Type Severity Reaction Status Date / Time No Known Allergies Allergy Verified 10/16/24 10:10 Family History Grandfather Pancreatic adenocarcinoma Atrial fibrillation, chronic Grandmother Lung cancer Surgical History History of left heart catheterization (12/08/17) Social History household members: none Smoking Status: Never smoker alcohol intake: current details: WEEKENDS substance use type: marijuana caffeine: Yes Type: carbonated beverages Number of servings: 2 and coffee Number of servings: 1 what type of physical activity do you participate in: none seatbelt use: always do you feel safe at home: Yes ROS ROS ED Constitutional Constitutional ED: Denies chills or fever(s) Cardiovascular Cardiovascular: Denies chest pain Respiratory/Chest Respiratory/Chest: Denies dyspnea Gastrointestinal Gastrointestinal: Reports abdominal pain and other Details: Bright red blood per rectum ; Denies nausea or vomiting Musculoskeletal Musculoskeletal: Denies arthralgias or myalgias Integumentary Denies rash Neurologic Neurologic: Denies weakness Hematologic/Lymphatic Hematologic/Lymphatic: Denies easy bleeding or easy bruising EXAM Physical Exam Const Vital Signs: 10/16/24 10:09 10/16/24 11:09 10/16/24 12:00 Temperature 97.1 F L Temperature Source Temporal Pulse Rate 68 51 L 57 L Respiratory Rate 14 Blood Pressure 145/78 H 137/77 H 131/78 H Blood Pressure Mean 100 97 95 Pulse Ox 98 99 100 Oxygen Delivery Method Room Air Room Air Room Air 10/16/24 14:00 10/16/24 14:07 Temperature 98.6 F 98.7 F Temperature Source Oral Pulse Rate 64 72 Respiratory Rate 18 14 Blood Pressure 127/78 H 129/64 H Blood Pressure Mean 94 85 Pulse Ox 98 99 Oxygen Delivery Method Room Air Positive well nourished and well developed General Appearance ED: well developed and NAD; Negative for pallor HEENT Reports moist mucous membranes Eyes PERRL General Eye ED: Negative for pale conjunctiva Neck supple Resp normal respiratory effort and clear to auscultation bilaterally Cardio regular rate and regular rhythm GI non-tender and non-distended GI Narrative: Chaperoned rectal exam performed?no external hemorrhoids. Questionable small nonbleeding fissure at 12 o'clock position. No hemorrhoids appreciated. No significant tenderness or mass on digital rectal exam. Palpation: soft; Negative for tender or guarding Extremity full ROM Neuro Sensorium / Orientation: alert Psych mental status grossly normal and thought process normal Skin no wounds General Skin Exam: Negative for jaundice or pallor MDM MDM MDM Narrative Medical decision making narrative: Patient is evaluated for 3 episodes of bright red blood per rectum since yesterday. He had similar episode 10 years ago and I thought maybe he had an anal fissure. He denies any family or personal history of ulcerative colitis or Crohn's disease. He is not on any anticoagulation. Patient overall is quite well-appearing. He has no active bleeding at this time. CBC is obtained which shows a normal hemoglobin. He has normal BUN and creatinine. Lab work normal. At this time I think patient is low risk for acute hemorrhage or complication. Abdomen is nontender he does not have a leukocytosis. Do not think requires CT imaging. Differential includes diverticular bleeding, AVM, hemorrhoidal bleeding and bleeding rectal fissure. Patient is low risk per [place] score (7 points) which signifies a 96% probability of safe discharge with appropriate precautions. Patient set up for outpatient GI follow-up in 2 days (this is scheduled for him). Given return precautions. Discharged home in stable condition. Lab Data Attestation: I reviewed the patient's lab results. Labs: Laboratory Results - last 24 hr 10/16/24 11:20 WBC 6.4 RBC 5.18 Hgb 14.9 Hct 44.1 MCV 85.1 MCH 28.8 MCHC 33.8 RDW Std Deviation 36.6 RDW Coeff of Hserine 11.9 Plt Count 271 MPV 10.7 Immature Gran % (Auto) 0.300 Neut % (Auto) 62.3 Lymph % (Auto) 28.3 [place] % (Auto) 6.1 Eos % (Auto) 2.2 Baso % (Auto) 0.8 Absolute Neuts (auto) 4.0 Absolute Lymphs (auto) 1.82 Nucleated RBC % 0 Sodium 139 Potassium 4.2 Chloride 106 Carbon Dioxide 22.7 Anion Gap 10 BUN 12 Creatinine 0.89 Estim Creat Clear Calc 166.29 Est GFR (MDRD) Non-Af 119 BUN/Creatinine Ratio 12.9 Glucose 95 Calcium 9.2 Total Bilirubin 0.30 AST 20 ALT 20 Alkaline Phosphatase 76 Total Protein 7.1 Albumin 4.3 Globulin 2.8 Albumin/Globulin Ratio 1.5 Discharge Plan Triage Chief Complaint: GI Bleed ED Provider: Pam Delong Dx/Rx/DC Orders Clinical Impression: BRBPR (bright red blood per rectum) Instructions: ED Lower GI Bleeding (Stable) Prescriptions: No Action omeprazole magnesium [Prilosec OTC] 20 mg tablet,delayed release (DR/EC) 20 mg PO PRN Primary Care Provider: Care Physician,No Primary Referrals: Dank Quintana, [Med Staff - Active Staff] - Care Physician,No Primary [Primary Care Provider] - Activity Restrictions/Additional Instructions: Please follow-up with the GI doctor as scheduled on the . In the meantime if you have lightheadedness, fever, worsening pain or severe bleeding please return the emergency room. At this time everything seems stable for outpatient follow-up Print Language: Vietnamese Disposition Disposition: Home, Self Care Discharge Date/Time: 10/16/24 14:09
[2024-10-16 14:07] VITALS: BP 129/64; PULSE 72; RESP 14; TEMP 37.1; O2SAT 99
== END 2024-10-16 14:09 | disposition home or self-care (01) ==
PROVIDERS: Emergency Provider Emergency Medicine; Visit Provider Emergency Medicine
DX: K62.5 Hemorrhage of anus and rectum (principal)
CPT/HCPCS: 80053; 85025; 99283; A4216

== ENCOUNTER → 2024-10-18 | Outpatient (CLI) | payer MEDICAID, SELFPAY ==
[2024-10-18 13:05] LABS: Hematocrit 43.2 % (40-54); Hemoglobin 15.0 g/dL (13.0-16.5); Immature Granulocytes Count 0.010 X10^3/uL (0.0-0.0); Mean Corp Hgb Conc 34.7 g/dL (32-36); Mean Corpuscular Volume 84.0 fL (80-94); Mean Platelet Vol. 10.4 fl (6.2-12.0); NRBC Flagged by Analyzer 0 % (0-5); Platelet Count 316 K/mm3 (150-450); RBC Distribution Width CV 11.9 % (11.6-14.6); RBC Distribution Width SD 36.0 fl (35.1-43.9); Red Blood Count 5.14 M/mm3 (4.6-6.2); White Blood Count 9.2 K/mm3 (4.4-11.0)
[2024-10-18 14:02] LABS: AST(SGOT) 24 U/L (<=37); Alanine Aminotransfer ALT/SGPT 23 U/L (<=46); Albumin, Serum 5.0 g/dL (3.5-5.0); Alkaline Phosphatase 76 U/L (40-129); Anion Gap 12 (5-15); BUN 12 mg/dL (4-19); BUN/Creat Ratio 12.9 RATIO (10-20); Calcium,Total 9.8 mg/dL (7.6-11.0); Carbon Dioxide 24.8 mmol/L (21.0-32.0); Chloride 103 mmol/L (98-108); Globulin 2.9 g/dL (2.2-4.2); Glucose 96 mg/dL (70-99); Potassium 3.8 mmol/L (3.3-5.1)
[2024-10-18 14:36] LABS: CRP < 3.00 mg/L (0.0-3.0)
== END | disposition home or self-care (01) ==
LOC: LAB 12:04
PROVIDERS: Referring Provider Student in an Organized Health Care Education/Training Program; Visit Provider Student in an Organized Health Care Education/Training Program
DX: K62.5 Hemorrhage of anus and rectum (principal)
CPT/HCPCS: 36415; 80053; 85025; 86140

== ENCOUNTER → 2024-10-19 | Outpatient (CLI) | payer MEDICAID, SELFPAY ==
[2024-10-23 18:08] LABS: Calprotectin, Stool 31 ug/g (0-120)
== END | disposition home or self-care (01) ==
LOC: LABSPEC 08:40
PROVIDERS: Referring Provider Student in an Organized Health Care Education/Training Program; Visit Provider Student in an Organized Health Care Education/Training Program
DX: K58.9 Irritable bowel syndrome, unspecified (principal); K62.5 Hemorrhage of anus and rectum
CPT/HCPCS: 83993; 87177; 87209; 87329; 87493; 87506

== ENCOUNTER 2024-10-23 10:43 | Day surgery (SDC) | payer MEDICAID, SELFPAY ==
--- NOTE | 2024-10-19 15:09 | PAT.ANE_ITS ---
Pre-Assessment Diagnosis/Proposed Procedure Planned Operative Procedure(s): COLONOSCOPY Anesthesia History Anesthesia History - community organizer: Anesthesia History - community organizer Hx Hospitalization No 10/18/24 15:09 Any Problems With Anesthesia No 10/18/24 15:09 Cholinesterase deficiency No 10/18/24 15:09 You/Your Family Experience No 10/18/24 15:09 fever (hyperthermia) with Relationship Recent Exposure to Contagious Disease Does patient have nerve No 10/18/24 15:09 stimulator Patient instructed to have device shut off --Does patient have Pacemaker or ICD? When Was Last Pacemaker Check QUESTION #4 FULL TEXT: You/Your Family Experience fever (hyperthermia) with Anesthesia Last Oral Intake Last Oral intake: Last Oral Intake NPO since Meds taken in AM with sips of water? Meds patient instructed to take am of surgery PONV PONV - community organizer: PONV - community organizer Female No 10/18/24 15:09 HX of Motion Sickness No 10/18/24 15:09 HX of N/V After Surgery No 10/18/24 15:09 Non-Smoker Yes 10/18/24 15:09 Duration of Surgery greater No 10/18/24 15:09 than 60 minutes Number of Risk Factors 1 10/18/24 15:09 PONV Score Low Risk 10/18/24 15:09 Height & Weight Height & Weight: Anesthesia: Height & Weight Height 6 ft 2 in 10/16/24 10:09 Respiratory Assessment Respiratory Assessment - community organizer: Respiratory Tract Infection Hx - community organizer Hx Respiratory Tract Infection No 10/18/24 15:09 STOP Sleep Apnea STOP Sleep Apnea - community organizer: STOP Sleep Apnea - community organizer Hx Hypertension No 10/18/24 15:09 Hx Sleep Apnea No 10/18/24 15:09 CPAP BIPAP Do you snore loudly (louder No 10/18/24 15:09 than talking or can be heard Do you often feel tired/ No 10/18/24 15:09 fatigued/ sleepy during daytime? Has anyone observed you stop No 10/18/24 15:09 breathing during sleep? STOP Results Negative 10/18/24 15:09 QUESTION #5 FULL TEXT : Do you snore loudly (louder than talking or can be heard through closed doors)? Tobacco Use History Tobacco Use History - community organizer: Tobacco Use History - community organizer Tobacco Use Smoking Status Never smoker 10/18/24 15:09 Hx Tobacco Use No 10/18/24 15:09 Years Smoking Packs Smoked per Day Smoking Cessation Date was within the last 15 years Hx Smoking Cessation Date Hx Smoking Cessation Counseling Hematologic Medial History Hematologic Hx - community organizer: Hematologic Medical Hx - angiographer Hx of Blood Transfusion No 10/18/24 15:09 Hx of Transfusion in last 3 No 10/18/24 15:09 Months Date of Last Transfusion (if within last 3 months) Ever experience any problems No 10/18/24 15:09 with transfusion(s)? Specify any problems Hx of Preganancy in last 3 N/A 10/18/24 15:09 Months Nurse Filling Out Transfusion VCHRISTIN 10/18/24 15:09 & Questions: Date: 10/18/24 10/18/24 15:09 Time: 15:10 10/18/24 15:09 Patient unable to answer at this time (ie. confused, unrespo /Reproduction History /Reproductive History - community organizer: /Reproductive Hx- community organizer Hx Now No 10/18/24 15:09 Gestational Age (in weeks): EDC: Hx Hx Para Hx Section SAB No 10/18/24 15:09 PFSH Medical History (Updated 10/18/24 @ 15:09 by Bailey Navarrete) Marijuana use Loss of consciousness Gastroparesis Gastric reflux Shortness of breath on exertion Cardiology follow-up encounter Hx of cardiac pacemaker Encounter for preventative adult health care examination Rib pain on left side Low back pain Urinary incontinence Pacemaker SOB (shortness of breath) Accidental electrocution Dizziness Back problem Syncope Acute chest pain Home Medications ?Medication ?Instructions ?Recorded ?Last Taken ?Type omeprazole magnesium 20 mg 20 mg PO PRN 10/16/2410/11 History tablet,delayed release (Prilosec OTC) Allergy/AdvReac Type Severity Reaction Status Date / Time No Known Allergies Allergy Verified 10/18/24 14:58 Family History Grandfather Pancreatic adenocarcinoma Atrial fibrillation, chronic Grandmother Lung cancer Surgical History History of left heart catheterization (12/08/17) Social History household members: none Smoking Status: Never smoker alcohol intake: current details: WEEKENDS substance use type: marijuana caffeine: Yes Type: carbonated beverages Number of servings: 2 and coffee Number of servings: 1 what type of physical activity do you participate in: none seatbelt use: always do you feel safe at home: Yes Audit: Pertinent Findings Pertinent Findings EKG Perinent findings: 07/05/2019 sinus bradycardia at 55 bpm. RSR in V1. Left axis deviation. Left atrial enlargement. Heart catheterization pertinent findings: 12/08/2017. Angiographically normal coronaries. Consult pertinent findings: July 10, 2024. Dr. Rm?cardiovascular surgery. 1. Syncope/intermittent pauses-no syncope, palpitations, chest pain, dyspnea or limitations in his activity. Patient is stable. 2. No swelling redness or pain over the pulse generator or on the chest and arms. Normal pacemaker evaluation. No battery depletion. Capture and sensing are appropriate. To be followed in clinic in 6 months. Recommendation Anesthesia Recommendation Anesthesia recommendation: OPTIMIZED for anesthesia (Patient needs a baseline twelve-lead EKG on day of surgery since he has not had one since his pacemaker insertion.)
[2024-10-23] VITALS (7 sets, daily range): BP systolic 98–125; BP diastolic 70–83; PULSE 54–79; RESP 16; TEMP 36.1–37; O2SAT 96–100; BMI 32.3
--- NOTE | 2024-10-23 11:26 | PCM.PRE.AN2 ---
ASA Classification* ASA Classification ASA Classification: 3 Assessment & Plan Anesthesia* Anesthesia Assessment Anesthesia Assessment: Discussed sedation and/or anesthesia options, risks, benefits, and alternatives with patient/parents/legal guardian/POA. Questions invited. The patient/parents/legal guardian/POA seems to understand and agrees to proceed with anesthesia plan. Reviewed the physical assessment, medical history, allergy history and patient home medications list prior to surgery/procedure/anesthetic and documented any changes. Performed airway and anesthesia risk assessments. Anesthesia Type Anesthesia Type: MAC Anesthesia Focused Assessment* Airway Assessment Mouth opens: >3 cm Mallampati Score: II Labs Anesthesia Preop lab: CBC WBC 9.2 K/mm3 (4.4-11.0) 10/18/24 12:10/18/24 RBC 5.14 M/mm3 (4.6-6.2) 10/18/24 12:10/18/24 Hgb 15.0 g/dL (13.0-16.5) 10/18/24 12:10/18/24 Hct 43.2 % (40-54) 10/18/24 12:06 10/18/24 Plt Count 316 K/mm3 (150-450) 10/18/24 12:06 10/18/24 CHEMISTRY Potassium 3.8 mmol/L (3.3-5.1) 10/18/24 12:06 10/18/24 Sodium 140 mmol/L (133-145) 10/18/24 12:06 10/18/24 Magnesium 2.1 mg/dL (1.6-2.6) 07/30/17 05:12 07/30/17 BUN 12 mg/dL (4-19) 10/18/24 12:06 10/18/24 Creatinine 0.92 mg/dL (0.70-1.20) 10/18/24 12:06 10/18/24 Glucose [facility] 71 mg/dL (70-110) 07/05/19 13:46 07/05/19 Glucose 96 mg/dL (70-99) 10/18/24 12:06 10/18/24 POC Glucose 80 mg/dL (70-110) 05/12/18 16:10 05/12/18 TSH 1.61 uIU/mL (0.358-3.74) 07/16/22 09:22 07/16/22 COAG PT 15.0 SECONDS (11.7-14.9) H 07/30/17 05:12 07/30/17 Pre-Assessment Diagnosis/Proposed Procedure Planned Operative Procedure(s): COLONOSCOPY Anesthesia History Anesthesia History - web ui software engineer: Anesthesia History - web ui software engineer Hx Hospitalization No 10/18/24 15:09 Any Problems With Anesthesia No 10/18/24 15:09 Cholinesterase deficiency No 10/18/24 15:09 You/Your Family Experience No 10/18/24 15:09 fever (hyperthermia) with Relationship Recent Exposure to Contagious Disease Does patient have nerve No 10/18/24 15:09 stimulator Patient instructed to have device shut off --Does patient have Pacemaker or ICD? When Was Last Pacemaker Check QUESTION #4 FULL TEXT: You/Your Family Experience fever (hyperthermia) with Anesthesia Last Oral Intake Last Oral intake: Last Oral Intake NPO since Meds taken in AM with sips of water? Meds patient instructed to take am of surgery PONV PONV - web ui software engineer: PONV - web ui software engineer Female No 10/18/24 15:09 HX of Motion Sickness No 10/18/24 15:09 HX of N/V After Surgery No 10/18/24 15:09 Non-Smoker Yes 10/18/24 15:09 Duration of Surgery greater No 10/18/24 15:09 than 60 minutes Number of Risk Factors 1 10/18/24 15:09 PONV Score Low Risk 10/18/24 15:09 Height & Weight Height & Weight: Anesthesia: Height & Weight Height 6 ft 2 in 10/16/24 10:09 Respiratory Assessment Respiratory Assessment - web ui software engineer: Respiratory Tract Infection Hx - web ui software engineer Hx Respiratory Tract Infection No 10/18/24 15:09 STOP Sleep Apnea STOP Sleep Apnea - web ui software engineer: STOP Sleep Apnea - web ui software engineer Hx Hypertension No 10/18/24 15:09 Hx Sleep Apnea No 10/18/24 15:09 CPAP BIPAP Do you snore loudly (louder No 10/18/24 15:09 than talking or can be heard Do you often feel tired/ No 10/18/24 15:09 fatigued/ sleepy during daytime? Has anyone observed you stop No 10/18/24 15:09 breathing during sleep? STOP Results Negative 10/18/24 15:09 QUESTION #5 FULL TEXT : Do you snore loudly (louder than talking or can be heard through closed doors)? Tobacco Use History Tobacco Use History - web ui software engineer: Tobacco Use History - web ui software engineer Tobacco Use Smoking Status Never smoker 10/18/24 15:09 Hx Tobacco Use No 10/18/24 15:09 Years Smoking Packs Smoked per Day Smoking Cessation Date was within the last 15 years Hx Smoking Cessation Date Hx Smoking Cessation Counseling Hematologic Medial History Hematologic Hx - web ui software engineer: Hematologic Medical Hx - knot tier Hx of Blood Transfusion No 10/18/24 15:09 Hx of Transfusion in last 3 No 10/18/24 15:09 Months Date of Last Transfusion (if within last 3 months) Ever experience any problems No 10/18/24 15:09 with transfusion(s)? Specify any problems Hx of Preganancy in last 3 N/A 10/18/24 15:09 Months Nurse Filling Out Transfusion VCHRISTIN 10/18/24 15:09 & Questions: Date: 10/18/24 10/18/24 15:09 Time: 15:10 10/18/24 15:09 Patient unable to answer at this time (ie. confused, unrespo /Reproduction History /Reproductive History - web ui software engineer: /Reproductive Hx- web ui software engineer Hx Now No 10/18/24 15:09 Gestational Age (in weeks): EDC: Hx Hx Para Hx Section SAB No 10/18/24 15:09 Active Medications Active Medications: Current Medications Generic Name Dose Route Start Last Admin Trade Name Freq PRN Reason Stop Dose Admin Lactated Ringer's 1,000 mls @ 15 mls/hr 10/23/24 11:15 IV .Q48H HIMANSHU PFSH Medical History Marijuana use Loss of consciousness Gastroparesis Gastric reflux Shortness of breath on exertion Cardiology follow-up encounter Hx of cardiac pacemaker Encounter for preventative adult health care examination Rib pain on left side Low back pain Urinary incontinence Pacemaker SOB (shortness of breath) Accidental electrocution Dizziness Back problem Syncope Acute chest pain Home Medications ?Medication ?Instructions ?Recorded ?Last Taken ?Type omeprazole magnesium 20 mg 20 mg PO PRN 10/16/24 10/11/24 History tablet,delayed release (Prilosec OTC) Allergy/AdvReac Type Severity Reaction Status Date / Time No Known Allergies Allergy Verified 10/23/24 11:16 Family History (Reviewed 10/23/24 @ 11: by Dr. Dillon Jaimes MD) Grandfather Pancreatic adenocarcinoma Atrial fibrillation, chronic Grandmother Lung cancer Surgical History (Reviewed 10/23/24 @ 11: by Dr. Dillon Jaimes MD) History of left heart catheterization (12/08/17) Social History (Reviewed 10/23/24 @ 11: by Dr. Dillon Jaimes MD) household members: none Smoking Status: Never smoker alcohol intake: current details: WEEKENDS substance use type: marijuana caffeine: Yes Type: carbonated beverages Number of servings: 2 and coffee Number of servings: 1 what type of physical activity do you participate in: none seatbelt use: always do you feel safe at home: Yes Review of Systems (Anesthesia) ROS Narrative System reviewed and no additional complaints, except as documented.
[2024-10-23] MEDS: Lactated Ringers 1,000 ML 15 ML IV (11:28)
--- NOTE | 2024-10-23 11:38 | PCM.HP.STD ---
HPI - General General Date of Admission: 10/23/24 Date of Service: 10/23/24 Chief Complaint: Lower GI bleeding HPI Narrative DG KWON, is a 29 M who presents recurrent lower gi bleeding [facility] ED .. with 3 episodes of rectal bleeding. Associated with some abdominal pain. CBC with normal hemoglobin. BUN and creatinine normal. Discharged with GI follow-up. OV 9.12.02 patient endorsing a 3 to 4-day history of bright red blood per rectum associated with lower abdominal pain. Patient has never had symptoms like this before. He has bleeding when he has a bowel movement it is on the paper when he wipes and in the toilet bowl. Blood is bright red. Patient typically has 4-5 bowel movements per day that are more urgent. They are typically softer. He denies family history of colon cancer, UC or Crohn's. About 9 years ago patient was electrocuted by an [employer] size fan while at work and since then he has had dysautonomia. FOR[facility]LY [facility] Medical History Marijuana use Loss of consciousness Gastroparesis Gastric reflux Shortness of breath on exertion Cardiology follow-up encounter Hx of cardiac pacemaker Encounter for preventative adult health care examination Rib pain on left side Low back pain Urinary incontinence Pacemaker SOB (shortness of breath) Accidental electrocution Dizziness Back problem Syncope Acute chest pain Home Medications ?Medication ?Instructions ?Recorded ?Last Taken ?Type omeprazole magnesium 20 mg 20 mg PO PRN 10/16/24 10/11/24 History tablet,delayed release (Prilosec OTC) Allergy/AdvReac Type Severity Reaction Status Date / Time No Known Allergies Allergy Verified 10/23/24 11:16 Family History Grandfather Pancreatic adenocarcinoma Atrial fibrillation, chronic Grandmother Lung cancer Surgical History History of left heart catheterization (12/08/17) Social History household members: none Smoking Status: Never smoker alcohol intake: current details: WEEKENDS substance use type: marijuana caffeine: Yes Type: carbonated beverages Number of servings: 2 and coffee Number of servings: 1 what type of physical activity do you participate in: none seatbelt use: always do you feel safe at home: Yes ROS Constitutional Constitutional: Denies fatigue, fever(s), poor appetite, weight gain or weight loss Gastrointestinal Gastrointestinal: Denies belching, bloating, change in bowel habits, change in stool character, chewing difficulty, coffee ground emesis, constipation, cramping, diarrhea, dyspepsia, dysphagia, early satiety, excessive flatus, fecal incontinence, heartburn, hematemesis, hematochezia, hemorrhoids, loose stools, melena, nausea, odynophagia, rectal bleeding, tenesmus, vomiting or weight changes Vital Signs Vital Signs Vital Signs: 10/23/24 11:18 10/23/24 11:18 Temperature 98.6 F Temperature Source Temporal Pulse Rate 68 Respiratory Rate 16 Respiratory Pattern Normal Blood Pressure 125/83 H Blood Pressure Mean 97 Blood Pressure Source Monitor Blood Pressure Position Sitting Blood Pressure Location Left Arm Pulse Ox 100 Oxygen Delivery Method Room Air Weight Weight: 251 lb 8.759 oz Body Mass Index (BMI) 32.3 Physical Exam Const alert, oriented x3, no apparent distress and healthy appearing General Appearance: cooperative GI normal to inspection, nondistended, normoactive bowel sounds, soft to palpation, non-tender and non-distended Percussion: normal to percussion Rectal Exam: deferred Assessment & Plan Assessment/Plan (1) BRBPR (bright red blood per rectum): PLAN: Assessment and Plan Assessment and Plan (1) BRBPR (bright red blood per rectum): Status: Acute Plan: Franklyn is a 29-year-old male patient here today for ED follow-up. For 3 to 4 days patient has been having bright red blood per rectum when having a bowel movement. Blood is in the bowl and when he wipes and it is bright red. In the ED hemoglobin was stable but lower than what it has been in the past. BUN/creatinine were normal. During examination in the ED and anal fissure was noted. Patient was discharged with GI follow-up. Patient continues to have bleeding today. Patient denies any pain with bowel movements therefore do not believe anal fissure is the etiology of his bleeding. Patient will undergo colonoscopy to assess his bleeding, stool urgency and frequency. I have also ordered repeat CBC for monitoring of his hemoglobin. I have also ordered stool testing for infection inflammation. Differential diagnosis includes UC, Crohn's disease, infection, diverticulosis or internal hemorrhoids. Patient has been advised to contact her office or present back to the ED if he experiences worsening rectal bleeding, lightheadedness, dizziness or shortness of breath. - Colonoscopy - CBC, CMP, CRP - Stool testing for infection or inflammation - Follow-up after colonoscopy Note: [employer] speech recognition electrical and instrument engineer software was used to create portions of this document. Sound-alike and misspelled words, as well as other electrical and instrument engineer errors may be contained in the documentation. Orders: Orders CBC W/Diff, Automated Today K62.5 - Hemorrhage of anus and rectum Comprehensive Metabolic Profil Today K62.5 - Hemorrhage of anus and rectum Calprotectin, Stool Today K62.5 - Hemorrhage of anus and rectum CDIFF (PCR) Today K62.5 - Hemorrhage of anus and rectum ENTERIC PATHOGEN PANEL STOOL Today K58.9 - Irritable bowel syndrome, unspecified, K62.5 - Hemorrhage of anus and rectum Giardia Lamblia, Stool EIA Today K62.5 - Hemorrhage of anus and rectum Ova and Parasites 8623 Today K58.9 - Irritable bowel syndrome, unspecified, K62.5 - Hemorrhage of anus and rectum CRP Today K62.5 - Hemorrhage of anus and rectum
--- NOTE | 2024-10-23 12:00 | COLBX_PTH ---
PATIENT: DG KWON LOC: EN U#:[id number] AGE/SX: 29/M ROOM: RE10/23/[address]: Dr. Dank Quintana DO : 1995 BED: DIS: 10/23/2024 SPEC #: [id number] RECD: 10/23/24 13:42 STATUS: JANES REEleni #: [id number] MAURO: 10/23/24 12:[address]: Dank Quintana DEPT: SURGICAL PATHOLOGY RECD BY: Dagoberto Prieto ENTERED: 10/23/24 14:24 SP TYPE: COLON BX OTHR DR: No Primary Care Phys Tissues: A - Ileum, NOS B - Sigmoid colon biopsy Procedures: Surgery Specimen Level IV HEADER OPERATION: Colonoscopy with biopsy PRE-OP DIAGNOSIS: Bright red blood per rectum TISSUE SUBMITTED: A- Terminal ileum biopsy, B- Sigmoid colon biopsy MICROSCOPIC DIAGNOSIS A. Terminal ileum, biopsy: - Prominent mucosal lymphoid aggregates, favor reactive - see note. Note: Recommend clinical correlation. B. Sigmoid colon, biopsy: - Hyperplastic polyp. MICROSCOPIC DESCRIPTION Slides are reviewed. GROSS DESCRIPTION A. Received in fixative is one container labeled with the patient's name and designated Terminal ileum biopsy. The specimen consists of two irregular fragments of light jacques soft tissue that measure 0.4 and 0.5 cm. The specimen is totally submitted in one cassette. B. Received in fixative is one container labeled with the patient's name and designated Sigmoid colon biopsy. The specimen consists of three irregular fragments of light jacques soft tissue that measure 0.3 to 0.5 cm. The specimen is totally submitted in one cassette. WA 10/23/2024 CPT:06685m7
--- NOTE | 2024-10-23 12:42 | OP.COLON_ITS ---
Patient Name: Uriel Valle Procedure Date: 10/23/2024 12:11 PM Date of : 1995 Age: 29 Procedure: Colonoscopy Indications: Hematochezia Providers: Dank Quintana DO Referring MD: No Primary Care Physician Medicines: Monitored Anesthesia Care Patient Profile: This is a 29 year old male. Refer to note in patient chart for documentation of history and physical. Last Colonoscopy: none. The patient's first colonoscopy is today. Complications: No immediate complications. Procedure: Pre-Anesthesia Assessment: - Prior to the procedure, a History and Physical was performed, and patient medications and allergies were reviewed. The risks and benefits of the procedure and the sedation options and risks were discussed with the patient. All questions were answered and informed consent was obtained. Patient identification and proposed procedure were verified by the physician. Mental Status Examination: alert and oriented. Airway Examination: normal oropharyngeal airway and neck mobility. Respiratory Examination: clear to auscultation. CV Examination: normal. Prophylactic Antibiotics: The patient does not require prophylactic antibiotics. Prior Anticoagulants: The patient has taken no anticoagulant or antiplatelet agents. ASA Grade Assessment: II - A patient with mild systemic disease. After reviewing the risks and benefits, the patient was deemed in satisfactory condition to undergo the procedure. The anesthesia plan was to use monitored anesthesia care (MAC). This assessment was completed [Time of Assessment] before the administration of sedation. After I obtained informed consent, the scope was passed under direct vision. Throughout the procedure, the patient's blood pressure, pulse, and oxygen saturations were monitored continuously. The Colonoscope was introduced through the anus and advanced to the terminal ileum. The colonoscopy was performed without difficulty. Scope In: 12:21:00 PM Scope Withdrawal Time 0 hours 7 minutes 34 seconds Scope Out: 12:30:30 PM Total Procedure Duration Time 0 hours 9 minutes 30 seconds Findings: A 7 mm anal fissure was found in the anal canal. An area of mildly congested mucosa was found in the sigmoid colon. Biopsies were taken with a cold forceps for histology. Verification of patient identification for the specimen was done. Estimated blood loss was minimal. A few small-mouthed diverticula were found in the recto-sigmoid colon and sigmoid colon. Patchy mild inflammation was found in the terminal ileum. Biopsies were taken with a cold forceps for histology. Verification of patient identification for the specimen was done. Estimated blood loss was minimal. An anal fissure was found on perianal exam. Impression: - Anal fissure. - Congested mucosa in the sigmoid colon. Biopsied. - Diverticulosis in the recto-sigmoid colon and in the sigmoid colon. - Mild inflammation was found in the ileum secondary to ileitis. Biopsied. Recommendation: - Discharge patient to home. - Resume previous diet. - Continue present medications. - Await pathology results. - Repeat colonoscopy at age 45 for screening purposes. Procedure Code(s): --- Professional --- 51666, Colonoscopy, flexible; with biopsy, single or multiple CPT copyright 2021 [employer]. All rights reserved. The codes documented in this report are preliminary and upon chemical operations and training review may be revised to meet current compliance requirements. Dank Quintana DO 10/23/2024 12:42:34 PM This report has been signed electronically. Number of Addenda: 0 Note Initiated On: 10/23/2024 12:11 PM
--- NOTE | 2024-10-23 12:42 | OP.PROVAT_ITS ---
10/23/2024 No Primary Care Physician Re : [facility] This procedure was performed on Wednesday, October 23, 2024. My impressions and recommendations are as follows: Impressions : - Anal fissure. - Congested mucosa in the sigmoid colon. Biopsied. - Diverticulosis in the recto-sigmoid colon and in the sigmoid colon. - Mild inflammation was found in the ileum secondary to ileitis. Biopsied. Recommendations : - Discharge patient to home. - Resume previous diet. - Continue present medications. - Await pathology results. - Repeat colonoscopy at age 45 for screening purposes. My findings are described in the full procedure note, which is enclosed. If I can be of further assistance, please feel free to contact me at . Sincerely, Dank Friend, 10/23/2024 12:42:34 PM This report has been signed electronically.
--- NOTE | 2024-10-23 12:42 | PCM.POST.ANE ---
Anesthesia: Postop Eval I Current Vital Signs Temperature: 97 F Pulse Rate: 79 Blood Pressure: 98/70 Respiratory Rate: 16 Pulse Ox: 97 Oxygen Delivery Method: Room Air Assessment Airway patent: Yes Spontaneous unlabored respirations: Yes Mental status: Asleep nausea: No Vomiting: No Anesthesia Complication: No Fluid Hydration Crystalloid volume administer (ml): 600 Total IV fluid infused: 600 Progress Note Anesthesia document: Postop Eval 1 completed: Yes
--- NOTE | 2024-10-23 14:09 | PCM.POSTANE2 ---
Anesthesia Postop Eval I Sum Postop Eval Completion status Anesthesia document: Postop Eval 1 completed: Yes Anesthesia Postop Eval I Summary Anesthesia Postop Eval I Summary: Anesthesia Postop Eval I: Assessment Summary Airway patent Yes 10/23/24 12:42 [email or web address] Spontaneous unlabored Yes 10/23/24 12:42 [email or web address] respirations Mental status Asleep 10/23/24 12:42 [email or web address] nausea No 10/23/24 12:42 [email or web address] Vomiting No 10/23/24 12:42 [email or web address] Anesthesia Postop Eval I: Fluid Summary Crystalloid volume administer 600 10/23/24 12:42 [email or web address] (ml) Colloids volume administered ( ml) Blood Product volume administered (ml) Total IV fluid infused 600 10/23/24 12:42 [email or web address] Anesthesia Postop Eval I: Summary Notes Anesthesia Complication No 10/23/24 12:42 [email or web address] Anesthesia Complication Comment: Post-operative progress note Anesthesia: Postop Eval II Evaluation Mental status: Awake Pain Level: 0 nausea: No Vomiting: No
== END 2024-10-23 13:12 | disposition home or self-care (01) ==
LOC: EN 10:44 → AC 10:52
PROVIDERS: Visit Provider Internal Medicine Gastroenterology
PROC: 0DJD8ZZ Inspection of Lower Intestinal Tract, Via Natural or Artificial Opening Endoscopic (ICD-10-PCS; CPT 45378; principal; 2024-10-23 11:55)
DX: K57.30 Diverticulosis of large intestine without perforation or abscess without bleeding (principal); K60.2 Anal fissure, unspecified; K21.9 Gastro-esophageal reflux disease without esophagitis; K63.5 Polyp of colon
CPT/HCPCS: 45380; 88305; J2405